=== PATIENT | male | born 1935 | race Caucasian/White ===

== ENCOUNTER → 2023-10-05 | Outpatient (CLI) | payer MEDICARE, SELFPAY ==
--- NOTE | 2023-10-05 12:30 | RAD_ITS ---
INDICATION: SOB EXAMINATION/TECHNIQUE: X-RAY - XR Chest 2 Views COMPARISON: No relevant prior comparison study available FINDINGS: LINES/DEVICES: None. LUNGS: Moderate left pleural effusion. Hypoventilatory changes in the right lung base. MEDIASTINUM AND CARDIOVASCULAR STRUCTURES: The cardiac silhouette is somewhat obscured. BONES AND SOFT TISSUES: Degenerative changes in the thoracic spine. RAD/Chest PA and Lateral IMPRESSION: Moderate left pleural effusion. Underlying infiltrate/collapse cannot be excluded. Electronically Signed: Narinder De La Cruz MD at 8:07 EDT ,
[2023-10-05 13:23] LABS: Absolute Lymphocyte Count 1.58 X10^3/uL (0.83-4.51); Absolute Neutrophil Count 5.8 X10^3/uL (2.0-7.7); Basophil# 0.05 X10^3/uL; Basophil% 0.6 % (0-1); Eosinophil# 0.19 X10^3/uL; Eosinophils% 2.3 % (0-5); Hematocrit 41.7 % (40-54); Hemoglobin 12.8 g/dL (13.0-16.5); Lymphocyte # 1.58 X10^3/ul (0.83-4.51); Lymphocyte % 18.8 % (19-41); Mean Corp Hgb Conc 30.7 g/dL (32-36); Mean Corpuscular Hgb 27.8 pg (27.0-32.0); Mean Corpuscular Volume 90.5 fL (80-94); Mean Platelet Vol. 10.3 fl (6.2-12.0); Monocyte# 0.71 X10^3/uL; Monocyte% 8.4 % (0-10); NRBC Flagged by Analyzer 0 % (0-5); Neutrophil # 5.83 X10^3/uL (2.7-7.7); Neutrophil % 69.3 % (47-70); Platelet Count 245 K/mm3 (150-450); RBC Distribution Width CV 15.1 % (11.6-14.6); RBC Distribution Width SD 49.8 fl (35.1-43.9); Red Blood Count 4.61 M/mm3 (4.6-6.2); White Blood Count 8.4 K/mm3 (4.4-11.0)
[2023-10-05 13:48] LABS: BNP,B-Type NATRIURETIC PEPTIDE 180.3 pg/mL (0-100)
[2023-10-05 14:02] LABS: ALB/GLOB Ratio 0.6 RATIO (0.9-2.4); AST(SGOT) 42 U/L (15-37); Alanine Aminotransfer ALT/SGPT 47 U/L (16-61); Albumin, Serum 2.7 g/dL (3.2-5.0); Alkaline Phosphatase 394 U/L (45-117); Anion Gap 5 (5-15); BUN 23 mg/dL (7-18); BUN/Creat Ratio 16.3 RATIO (10-20); Calcium,Total 8.8 mg/dL (8.5-10.1); Chloride 107 mmol/L (98-107); Creatinine, Serum 1.41 mg/dL (0.70-1.30); EST Glomerular Filtration Rate 50 mL/min (>60); Est Glom Filt Rate - Afr Amer 61 mL/min (>60); Globulin 4.8 g/dL (2.2-4.2); Glucose 220 mg/dL (74-106); Magnesium 2.1 mg/dL (1.6-2.6); Potassium 3.8 mmol/L (3.5-5.1); Protein, Total 7.5 g/dL (6.4-8.2); Sodium Level 139 mmol/L (136-145)
== END | disposition home or self-care (01) ==
LOC: RAD 12:16
PROVIDERS: PCP Internal Medicine; Referring Provider Nurse Practitioner Family; Visit Provider Nurse Practitioner Family
DX: R06.02 Shortness of breath (principal); I50.32 Chronic diastolic (congestive) heart failure; I11.0 Hypertensive heart disease with heart failure; I48.11 Longstanding persistent atrial fibrillation
CPT/HCPCS: 36415; 71046; 80053; 83735; 83880; 85025

== ENCOUNTER 2023-11-01 08:57 | Emergency (ER) | payer MEDICARE, SELFPAY ==
[2023-11-01 08:59] VITALS: BP 149/82; PULSE 75; RESP 18; TEMP 36.4; O2SAT 93
--- NOTE | 2023-11-01 09:10 | VDLE_ITS ---
Reason For Study: RLE Swelling RIGHT LEFT CFV is compressible, spontaneous, competent CFV is compressible, spontaneous, competent, and demonstrates pulsatile venous flow. and demonstrates pulsatile venous flow. FV is compressible, spontaneous, competent and demonstrates pulsatile venous flow. POP V is compressible, spontaneous, competent and demonstrates pulsatile venous flow. T/P Trunk is compressible. PTV is compressible. RT PerV is compressible. Procedure This is a venous duplex using B-mode, color flow and spectral Doppler. Exam performed portable in ED. The study was technically difficult. A preliminary report was called and/or faxed to Dr. Lorenzo. VL/Venous Duplex US, Unilateral Interpretation Summary Deep veins of the right lower extremity are patent and compressible segmentally . There is no evidence of right lower extremity deep vein thrombosis. The right great sapheno us vein appears patent and compressible segmentally. Ordering Physician: Tony Lorenzo Referring Physician: Alpesh Oconnell Performed By: Chaz Jones RVT
--- NOTE | 2023-11-01 09:10 | RAD_ITS ---
STUDY: X-RAY - RIGHT KNEE REASON FOR EXAM: Male, 88 years old. Pain, swelling TECHNIQUE: 2 view(s) of the knee. COMPARISON: None. FINDINGS: Normal visualized distal femur. Normal visualized proximal tibia and fibula. Normal proximal tibiofibular articulation. There is mild degenerative arthrosis of the medial femorotibial compartment. Normal lateral femorotibial compartment. 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 Moderate joint effusion. Diffuse soft tissue swelling. Vascular calcification. Calcification of the lateral collateral ligament in keeping with a Pedro Stieda disease. RAD/Knee 1 or 2 Views IMPRESSION: Degenerative arthrosis. Moderate-sized joint effusion with diffuse soft tissue swelling. Pedro Stieda disease. Electronically Signed: Matt Fragoso MD at 10:50 EDT ,
--- NOTE | 2023-11-01 09:12 | EDS_ITS ---
HPI History of Present Illness Chief Complaint: Lower Extremity Injury Narrative Narrative: 88-year-old male past medical history of atrial fibrillation, diabetes, chronic kidney disease, lower extremity lymphedema presents with right knee pain on the medial aspect for the last 2 days or longer. He denies any chest pain or shortness of breath. He relates history that he has had problems with his left knee. He was going to get a cortisone injection from orthopedics, but he developed an ulcer on his left lower extremity so they state that it cannot be performed. Over the last 2 days, he has noticed a knot on his right medial distal thigh. It is very painful for him to weight-bear or to touch. He denies any fevers or chills. No nausea or vomiting. He did develop an ulcer on his right lower leg/foot for which she sees podiatry. He took 2 Tylenol earlier today, but it did not help with his pain. He denies any recent falls or trauma. Additionally, he also takes Eliquis 2.5 mg twice a day for his atrial fibrillation. He has not missed a dose recently except for today before presenting to the emergency department this morning. [facility] Medical History Acute hepatitis Aphasia Asymmetric septal hypertrophy ATN (acute tubular necrosis) BPH (benign prostatic hyperplasia) Cholecystitis, acute Chronic diastolic (congestive) heart failure Colon cancer History of TIA (transient ischemic attack) (10/2020) Longstanding persistent atrial fibrillation New onset atrial fibrillation (12/24/18) Secondary pulmonary arterial hypertension Stroke-like symptoms Type 2 diabetes mellitus Home Medications apixaban 2.5 mg tablet 2.5 mg PO BID BLOOD THINNER 10/16/20 [History Last Taken 10/16/20] [id number]-[id number] 300 mcg-K 60 mcg-lycop 600 mcg-lutein 300 mcg tablet 1 tablet PO DAILY SUPPLEMENT 10/16/20 [History Last Taken 10/16/20] insulin NPH isoph U-100 human 100 unit/mL (3 mL) subcutaneous pen (Humulin N NPH U-100 Insulin KwikPen) 30 unit subcut BID 06/02/22 [History Last Taken Unknown] metoprolol tartrate 25 mg tablet See Rx Instructions .Route .COMPLEX #180 TABLETS 12/27/22 [Rx Last Taken Unknown] amlodipine 2.5 mg tablet 2.5 mg PO DAILY BP #90 tabs 07/31/23 [Rx Last Taken Unknown] glimepiride 4 mg tablet 4 mg PO BID diabetes 10/05/23 [History Last Taken Unknown] furosemide 40 mg tablet (Lasix) 60 mg (1.5 x 40 mg) PO BID #270 tabs 10/11/23 [Rx Last Taken Unknown] tramadol 50 mg tablet 50 mg PO Q6H PRN pain 3 days #12 tabs 11/01/23 [Rx Last Taken Unknown] Allergy/AdvReac Type Severity Reaction Status Date / Time dabigatran etexilate Allergy skin of Verified 11/01/23 08:58 [From Pradaxa] legs peeled/itching lisinopril Allergy Angioedema Verified 11/01/23 08:58 meloxicam [From Mobic] Allergy Unknown Verified 11/01/23 08:58 rivaroxaban [From Xarelto] AdvReac skin rash Verified 11/01/23 08:58 sulfamethoxazole AdvReac high sugars Verified 11/01/23 08:58 [From Bactrim] trimethoprim [From Bactrim] AdvReac high sugars Verified 11/01/23 08:58 Surgical History H/O local excision of skin lesion (10/26/21) History of cardioversion (2013) History of partial colectomy Social History household members: spouse Smoking Status: Former smoker how long ago did patient quit smokin years ago alcohol intake: never substance use type: does not use caffeine: Yes Type: coffee Number of servings: 3 ROS ROS ED ROS Narrative Constitutional: No fever, no chills. HEENT: No sore throat. No neck pain. No loss of vision. No rhinorrhea. Cardiovascular: No chest pain. No palpitations. No pedal edema. Respiratory: No cough, no shortness of breath. Abdominal: No abdominal pain. No nausea. No vomiting. Genitourinary: No dysuria. No hematuria. Musculoskeletal: Positive right distal thigh pain. Worse with palpation and weightbearing. Neurologic: No headaches. No dizziness. No lightheadedness. Skin: No rash. No change in color. Positive ulcers bilateral lower extremities. Psychiatric: No depression. No anxiety. EXAM Physical Exam Narrative Exam Narrative: Afebrile. Vital signs noted. HEENT: Normocephalic. Atraumatic. PERRL, EOMI. Neck soft and supple. No point tenderness or step off. Cardiovascular: Regular rate and rhythm. No murmurs, rubs, or gallops appreciated. Respiratory: No tachypnea. Lungs clear to auscultation bilaterally. Gastrointestinal: Abdomen soft, nontender, with normoactive bowel sounds. No rebound or guarding. Neurological: Awake. Alert. Nonfocal, nonlateralizing. Skin: No rash. Normal color. No pallor. Bilateral lower extremities in wraps. Musculoskeletal: Bilateral pedal edema, right greater than left. Full range of motion extremities. Mild tenderness palpation right medial thigh distally. No noted erythema. Flexion extension right knee intact. Const Vital Signs: 11/01/23 08:59 Temperature 97.6 F L Temperature Source Temporal Pulse Rate 75 Respiratory Rate 18 Blood Pressure 149/82 H Blood Pressure Mean 104 Pulse Ox 93 Oxygen Delivery Method Room Air MDM MDM MDM Narrative Medical decision making narrative: In the differential diagnosis would be DVT, however he is already on Eliquis albeit at half dose secondary to his age. He may have a hematoma versus fracture of the right distal femur/knee versus internal derangement. He is already taken Tylenol today. I will give him 1 dose of oxycodone 5 mg here in the emergency department and obtain an x-ray of the right knee along with ultrasound to rule out DVT. In discussion with the wood technologist, patient is negative for DVT of the right lower extremity. X-rays obtained of the right knee were interpreted by myself independently and I see no evidence of acute fracture. There is presence of a joint effusion. I reviewed the radiology report which confirms my independent interpretation. At this point in time, given that he does have u lceration on his right lower extremity and left lower extremity, I do not feel emergent arthrocentesis is indicated. I have low suspicion for septic joint. Patient will be given a prescription for tramadol, as given his age and the fact that he is on a blood thinner, I am reluctant to give him narcotic pain medication at this time. He will follow-up with his orthopedic surgeon, Dr. Carlos Childs. I feel he can be discharged to follow-up. Return instructions to the emergency department were reviewed. History & Record Review Discussion w/independent historian: Patient and Significant other Radiography Diagnostic Testing: Clinical Impression(s) from Imaging Studies Knee X-Ray 11/01/23 09:10 IMPRESSION: Degenerative arthrosis. Moderate-sized joint effusion with diffuse soft tissue swelling. Pedro Stieda disease. Electronically Signed: Matt Fragoso MD at 10:50 EDT , Discharge Plan Triage Chief Complaint: Lower Extremity Injury ED Provider: Tony Lorenzo Dx/Rx/DC Orders Clinical Impression: DM2 (diabetes mellitus, type 2), Knee pain, right, Effusion into joint Instructions: ED Knee Pain of Uncertain Cause, ED Knee Effusion Prescriptions: New tramadol 50 mg tablet 50 mg PO Q6H PRN (Reason: pain) 3 Days Qty: 12 0RF No Action Humulin N NPH Insulin KwikPen 100 unit/mL (3 mL) insulin pen 30 unit subcut BID furosemide [Lasix] 40 mg tablet 60 mg PO BID Qty: 270 3RF glimepiride 4 mg tablet 4 mg PO BID Hold Instructions: Resume on 04/09/21. Hold until follow-up with PCP with subsequent BMP recheck [id number] 1 EACH tablet 1 tablet PO DAILY apixaban 2.5 MG tablet 2.5 mg PO BID metoprolol tartrate 25 mg tablet See Rx Instructions .ROUTE .COMPLEX Qty: 180 3RF Dose Instruction: TAKE ONE TABLET BY MOUTH TWO TIMES A DAY Rx Instructions: TAKE ONE TABLET BY MOUTH TWO TIMES A DAY amlodipine 2.5 mg tablet 2.5 mg PO DAILY Qty: 90 3RF Primary Care Provider: Alpesh Oconnell Referrals: Carlos Fleming DO [Med Staff - Active Staff] - As soon as possible Alpesh Oconnell MD [Primary Care Provider] - Disposition Disposition: Home, Self Care
[2023-11-01] MEDS: oxyCODONE 5 MG Tablet PO (09:46)
[2023-11-01 12:00] VITALS: BP 142/76; PULSE 78; RESP 16; TEMP 36.4; O2SAT 99
== END 2023-11-01 12:13 | disposition home or self-care (01) ==
PROVIDERS: Emergency Provider Emergency Medicine; PCP Internal Medicine; Visit Provider Emergency Medicine
DX: E11.22 Type 2 diabetes mellitus with diabetic chronic kidney disease (principal); I48.91 Unspecified atrial fibrillation; M25.561 Pain in right knee; M25.461 Effusion, right knee; N18.9 Chronic kidney disease, unspecified; Z86.73 Personal history of transient ischemic attack (TIA), and cerebral infarction without residual deficits; Z87.891 Personal history of nicotine dependence; Z79.01 Long term (current) use of anticoagulants
CPT/HCPCS: 73560; 93971; 99282

== ENCOUNTER → 2023-11-29 | Outpatient (CLI) | payer MEDICARE, SELFPAY ==
--- NOTE | 2023-11-29 14:20 | BD_ITS ---
STUDY: DUAL ENERGY X-RAY ABSORPTIOMETRY / DXA REASON FOR EXAM: Male, 88 years old. Pain, possible bone cyst on right knee TECHNIQUE: Bone Mineral Density (BMD) measurements of lumbar spine and bilateral hips were obtained. COMPARISON: None. FINDINGS: Lumbar Spine (L1-L4): g/cm2 (1.707) / T-score (5.7) / Z-score (7.0) Findings are suggestive of normal bone density with a low fracture risk. Left Femur Total: g/cm2 (1.479) / T-score (3.0) / Z-score (4.2) Left Femoral Neck: g/cm2 (1.344) / T-score (3.0) / Z-score (4.8) Right Femur Total: g/cm2 (1.281) / T-score (1.6) / Z-score (2.9) Right Femoral Neck: g/cm2 (0.966) / T-score (0.3) / Z-score (2.0) BD/Dexa Bone Density Study IMPRESSION: The patient is considered normal as outlined below according to World [employer] Organization (WHO) criteria with a low fracture risk. Reference Information: The T-score is the number of standard deviations above or below the standard which is normal for young adults at their peak bone mineral density. The World Health Organization (WHO) interprets the T-scores as follows: Above -1 Normal bone density Between -1 and -2.5 Osteopenia Equal to / or below -2.5 Osteoporosis As a practical clinical guideline, osteopenia may be graded as follows: Mild -1 through -1.5 Moderate -1.6 through -2.0 Severe -2.1 through -2.4 The Z-score is the number of standard deviations above or below age-matched controls. A Z-score of less than -1.5 would be considered abnormal. References: 1. NIH Osteoporosis and Related Bone Diseases www osteo.org 2. International Society for Clinical Densitometry www iscd.org 3. National Osteoporosis Foundation www nof.org Electronically Signed: Matt Fragoso MD at 11:21 EDT ,
== END | disposition home or self-care (01) ==
LOC: OPBD 14:04
PROVIDERS: PCP Internal Medicine; Referring Provider Orthopaedic Surgery; Visit Provider Orthopaedic Surgery
DX: M81.0 Age-related osteoporosis without current pathological fracture (principal); M25.561 Pain in right knee
CPT/HCPCS: 77080

== ENCOUNTER → 2023-12-08 | Outpatient (CLI) | payer MEDICARE, SELFPAY ==
--- NOTE | 2023-12-08 08:32 | NM_ITS ---
CLINICAL: 88-year-old male with history of right proximal tibial bone cyst formation and complaint of right knee pain. LIMITED 99m Tc MDP THREE PHASE BONE SCINTIGRAPHY COMPARISON: Plain film radiograph report right knee 11/01/2023 FINDINGS: Following the intravenous administration of 27.7 mCi of 99m Tc MDP, three-phase bone acquisitions of the knee articulations reveal: 1. The flow and immediate static blood pool acquisitions demonstrate relatively normal and symmetric arterial phase distribution of the radiotracer to the bilateral knee articulations. Venous hyperemia is apparent in the medial and lateral femoral-tibial compartments of both knee articulations. 2. Delayed images depict facilitated uptake noted in the patellofemoral, medial and lateral femoral and tibial compartments of the bilateral knees. 3. The remaining limited skeletal structures are scintigraphically unremarkable. Meticulous attention paid to the right lateral proximal tibial metaphysis demonstrate no definitive scintigraphic abnormalities. NM/Bone Scan Three Phase IMPRESSION: 1. The increase in tracer uptake noted in the bilateral knee articulations is most consistent with degenerative arthropathy-synovial inflammation. 2. With regard given to the right proximal lateral tibial metaphysis, there are no scintigraphic abnormalities. Electronically Signed: Harvinder Joseph DO at 8:39 EDT ,
== END | disposition home or self-care (01) ==
PROVIDERS: PCP Internal Medicine; Referring Provider Orthopaedic Surgery; Visit Provider Orthopaedic Surgery
DX: M85.661 Other cyst of bone, right lower leg (principal)
CPT/HCPCS: 78315; A9503

== ENCOUNTER 2023-12-14 10:00 | Outpatient (RCR) | payer MEDICARE, SELFPAY ==
[2023-12-07 08:35] VITALS: BP 121/60; PULSE 70; RESP 18; TEMP 36.4; BMI 37.9
--- NOTE | 2023-12-07 10:16 | HP.PCM_ITS ---
History of Present Illness Date of Service: 12/07/23 Chief Complaint: Right medial heel History of Wound: Patient is a 88-year-old male with PMHx of DM type II with peripheral polyneuropathy, HTN, Hx of TIA, bone cyst of the right tibia, CHF, stage IIIa chronic kidney disease, A-fib, bilateral lower extremity edema, and chronic venous stasis with dermatitis who presents to the wound care center for evaluation of a right medial heel ulceration by bindery machine operator Dr. Alpesh Oconnell MD. Ulceration has been present since March 2023 in which he had been following with Alli BustamantePMilena who did order LEAS on 07/28/2023 with mild arterial occlusive disease on the right and moderate arterial occlusive disease on the left. Patient had declined vascular surgery follow-up which was advised at that time. Patient stated he had tried compression stockings in the past but attempted removing them one evening and they rolled down on him causing him pain to which he took scissors and like a shear remove them. States he has not worn them since. Patient's states they have been applying the collagen based product to the wound bed and dressing with dry dressings daily. They had also used Santyl on the eschar site at the heel. Patient denies pain about the wound site. Denies N/V/S/chills, denies constitutional symptoms. [facility] Medical History Acute hepatitis Aphasia Asymmetric septal hypertrophy ATN (acute tubular necrosis) BPH (benign prostatic hyperplasia) Cholecystitis, acute Chronic diastolic (congestive) heart failure Colon cancer History of TIA (transient ischemic attack) (10/2020) Longstanding persistent atrial fibrillation New onset atrial fibrillation (12/24/18) Secondary pulmonary arterial hypertension Stroke-like symptoms Type 2 diabetes mellitus Home Medications ?Medication ?Instructions ?Recorded ?Last Taken ?Type apixaban 2.5 mg tablet 2.5 mg PO BID BLOOD THINNER 10/16/20 10/16/20 History [id number] 300 mcg-K 60 1 tablet PO DAILY SUPPLEMENT 10/16/20 10/16/20 History mcg-lycop 600 mcg-lutein 300 mcg tablet insulin NPH isoph U-100 human 100 15 unit subcut BID 06/02/22 Unknown History unit/mL (3 mL) subcutaneous pen (Humulin N NPH U-100 Insulin Urszula) metoprolol tartrate 25 mg tablet See Rx Instructions .Route 12/27/22 Unknown Rx .COMPLEX #180 TABLETS amlodipine 2.5 mg tablet 2.5 mg PO DAILY BP #90 tabs 07/31/23 Unknown Rx glimepiride 4 mg tablet 4 mg PO BID diabetes 10/05/23 Unknown History furosemide 40 mg tablet (Lasix) 40 mg PO DAILY #90 tabs 11/10/23 Unknown Rx spironolactone 25 mg tablet 25 mg PO DAILY #30 tabs 11/10/23 Unknown Rx Allergy/AdvReac Type Severity Reaction Status Date / Time dabigatran etexilate (From Allergy skin of Verified 11/10/23 13:14 Pradaxa) legs peeled/itching lisinopril Allergy Angioedema Verified 11/10/23 13:14 meloxicam (From Mobic) Allergy Unknown Verified 11/10/23 13:14 rivaroxaban (From Xarelto) AdvReac skin rash Verified 11/10/23 13:14 sulfamethoxazole (From AdvReac high sugars Verified 11/10/23 13:14 Bactrim) trimethoprim (From Bactrim) AdvReac high sugars Verified 11/10/23 13:14 Surgical History H/O local excision of skin lesion (10/26/21) History of cardioversion (2013) History of partial colectomy Social History household members: spouse Smoking Status: Former smoker how long ago did patient quit smokin years ago alcohol intake: never substance use type: does not use caffeine: Yes Type: coffee Number of servings: 3 ROS Constitutional Constitutional: Denies anorexia, change in weight, chills or fever(s) Eyes Eyes: Denies blurry vision, change in vision or dry eyes ENT HEENT: Denies dysphagia, nasal congestion, nasal discharge or sore throat Cardiovascular Cardiovascular: Denies chest pain, claudication or palpitations Respiratory/Chest Respiratory/Chest: Denies cough, shortness of breath at rest or wheezing Gastrointestinal Gastrointestinal: Denies abdominal pain, constipation, diarrhea, nausea or vomiting Genitourinary Genitourinary: Denies dysuria, hematuria or urinary urgency Musculoskeletal Musculoskeletal: Denies joint pain, joint stiffness or joint swelling Integumentary Integumentary: Denies lesions, pruritus or rash Neurologic Neurologic: Denies dizziness, numbness or seizures Psychiatric Psychiatric: Denies anxiety Endocrine Endocrinology: Denies cold intolerance, heat intolerance or polydipsia Hematologic/Lymphatic Hematologic/Lymphatic: Reports easy bleeding and easy bruising Vital Signs Vital Signs Vital Signs: 12/07/23 08:35 Temperature 97.6 F L Temperature Source Temporal Pulse Rate 70 Respiratory Rate 18 Blood Pressure 121/60 H Blood Pressure Mean 80 Blood Pressure Source Monitor Blood Pressure Position Semi-Fowlers Blood Pressure Location Left Arm Oxygen Delivery Method Room Air Weight Weight: 106.594 kg Body Mass Index (BMI) 37.9 Physical Exam Const alert, oriented x3 and no apparent distress General Appearance: cooperative HEENT normocephalic Eyes General Eye: normal appearance of both eyes Neck General: normal visual inspection Lymph Lymphatic: no lymphadenopathy noted and no lymphedema noted Resp normal respiratory effort Cardio regular rate and regular rhythm Extremity no joint enlargement and no calf tenderness Extremity Narrative: Vascular: DP and PT pulses weakly palpable bilateral. CFT 5 seconds to the digits bilateral. Normal temperature gradient bilateral. Hair growth is absent to digits bilateral. Neurologic: Light sensation is diminished to the foot bilateral. Gross sensation is intact bilateral. Protective sensation is diminished to the foot bilateral consistent with diabetic peripheral polyneuropathy. Musculoskeletal: Muscle strength 5 of 5 age-appropriate. There is decreased range of motion of the ankle joint dorsiflexion bilateral with the knee extended without pain or crepitus bilateral. Decreased range of motion of the first metatarsophalangeal joint dorsiflexion without pain or crepitus bilateral. No pain to palpation to bones of the foot or ankle. No pain to palpation about the ulcerative site at the medial calcaneal wall. No pain to palpation to the pretibial shaft or about sites of hemosiderin deposition bilateral lower extremity. Negative Fisher test, negative Alaina test bilateral. Dermatologic: There is mild xerotic texture to the lower extremity bilateral especially over the pretibial regions along with significant circumferential hemosiderin deposition and chronic venous stasis dermatitis. There is also multiple varicosities noted to the lower extremity and medial ankle with +4 pitting edema to the dorsal foot and medial ankle. Rubor is noted to the digits and plantar aspect of the foot with trophic changes to the skin noted consistent with microvascular disease/mild arterial occlusive disease. There is a stable eschar noted to the medial calcaneal wall well below the neurovascular bundle. No signs of infection. There is surrounding hyperkeratosis/crusting of the skin which is easily removed. Post removal of eschar demonstrates healthy s uperficial ulceration with no tunneling about the wound margins. Skin no rashes or lesions noted and no jaundice General Skin Exam: venous stasis and dermatitis Neuro moves all extremities Debridement Note Debridement Note Wound debrided: Medial right heel Laterality: Right Wound Grade/Stage: Stout stage I Type of Debridement: Excisional debridement Anesthesia Used: 5% Lidocaine Gel Depth: Down to and including healthy tissue and in the subcutaneous layer Percentage of wound debrided: 100 Instrument Used: 5mm curette Tissue Removed: Fibrous, devitalized subcutaneous, biofilm, slough Severity: Fat Layer Exposed Amount of bleeding with debridement: Mild Bleeding Controlled with: Compression and gauze Patient tolerated procedure: Patient tolerated procedure well Post-Debridement Measurements and Additional Note: Post-Debridement Measurements/Treatment - Nurse 1 - General Ulcer Assessment Start: 12/07/23 08:34 Freq: Status: Active Protocol: [email or web address] Activity Type Activity Date Activity User E-sign Co-sign Detail Recorded Client Recorded Date Recorded By Document 12/07/23 08:35 KW wound center 12/07/23 08:48 KW 12/07/23 08:35 - Today's Visit Information Type of service Initial Visit Arrival Mode Wheelchair Transfer Assistance Manual Accompanied by friend/ superintendent colliery Patient Identification Verified (Name & Yes ) Finger Stick Blood Sugar(mg/dl) (if 168 indicated): Blood Sugar Stated by Patient Height and Weight Height 5 ft 6 in Weight 106.594 kg Weight in Pounds 235.0 lbs Body Mass Index (BMI) 37.9 BMI Classification Obese BSA - Dale 2.14 Vital Signs Temperature (97.8 F-99.1 F) 97.6 F L Temperature Source Temporal Pulse Rate (60-100) 70 Pulse Location Monitor Respiratory Rate (12-18) 18 Respiratory rate source Observation Oxygen Delivery Method Room Air Blood Pressure (90/60-120/80) 121/60 H Blood Pressure Mean 80 Source Monitor Position Semi-Fowlers Blood Pressure Location Left Arm History Since Last Visit- (Skip if this is Patient's initial visit) Left Footwear Diabetic Shoe Right Footwear Diabetic Shoe Pain Scale: 0-10 Numeric Is Patient Pain Free? Yes Lower Extremity Assessment/ Foot Assessment/ Toe Nail Assessment Right -Posterior Tibial Palpable No -Dorsalis Pedis Palpable No -Hair Growth on Legs No -Hair Growth on Toes No -Temperature of Extremity Cool -Capillary Refill Less than 3 Seconds -Thick Yes -Discolored Yes -Deformed Yes -Improper Length & Hygeine No Communication Assessment Preferred language [place] Leak Operator Paraffin Plant Required No Able to Read Yes Able to Write Yes Right Hearing Abillity Normal Left Hearing Abillity Normal Visual Assistive Devices Glasses Teaching Assessment Preferences Verbal,Written, Demonstration Barriers to Learning None Readiness To Learn Excellent Willingness to Engage in Self Management High Activies Readiness to Engage in Self Management High Activities Anxiety Level Calm Cooperation Cooperative Perception Coherent Interest in Health Problem Asks Questions Education Importance Acknowledges Need Does Patient Smoke tobacco or other Yes substances Smoking Status Former smoker Is Patient Diabetic Yes Functional Assessment Recent Decline in Ability to Perform Ambulation, Bathing,Lower Body Dressing, Transferring Culture/Hoahaoism/Development Administrator Cultural/Hoahaoism Needs that may affect No Treatment Plan Would you allow our hospital ornament stitcher to No meet you for the purpose of spiritual/ emotional support? Development Administrator to contact place of denominational No WC - Nurse 1 - General Ulcer Measurement Start: 12/07/23 08:34 Freq: Status: Active Protocol: Activity Type Activity Date Activity User E-sign Co-sign Detail Recorded Client Recorded Date Recorded By Document 12/07/23 08:35 KW wound center 12/07/23 08:48 KW 12/07/23 08:35 Wound Center Nurse 1 #1 rt heel -Current Size (cm) - Length 0.5 -Current Size (cm) - Width 0.7 -Current Size (cm) - Depth 0.1 -Total Square Cm 0.35 -Date of Last Picture (Recall this 12/07/23 field) -Photo Taken Yes -Exudate Amt Small -Exudate Type Serosanguineous -Wound Margin Distinct, Outline Attached -Granulation Amt Large (67-100%) -Granulation Quality Oriental -Texture (Antoinette-wound Skin Appearance) Callus -Moisture (Antoinette-wound Skin Appearance) Assessed -Color (Antoinette-wound Skin Appearance) Assessed, Hemosiderin Staining -Temperature (Antoinette-wound Skin No Abnormality Appearance) (Pt Warm) -Tenderness on Palpation (Antoinette-wound No Skin Appearance) -Ulcer Cleansing Rinsed/ Irrigated with Saline -Foul Odor after Cleansing No -Anesthetic Used 5% Lidocaine Gel Right Calf (cm) 45 Right Ankle (cm) 30.5 Left Calf (cm) 42.5 Left Ankle (cm) 33 WC - Nurse 2 - General Ulcer CM Notes Start: 12/07/23 08:34 Freq: Status: Active Protocol: Activity Type Activity Date Activity User E-sign Co-sign Detail Recorded Client Recorded Date Recorded By Document 12/07/23 09:08 [facility] [id number] 12/07/23 09:16 [facility] 12/07/23 09:08 Wound Center Nurse 2 #1 rt heel -Time 09:09 -Correct Patient Yes -Correct Side, Site, Position Yes -Correct Procedure Yes -Procedure Performed Yes -Type of Procedure Debridement -Clinical Debridement Subcutaneous -Tissue Removed Subcutaneous -Post Debridement (cm) - Length 1 -Post Debridement (cm) - Width 0.5 -Post Debridement (cm) - Depth 0.1 -Total Square (Post) (cm) 0.5 -Area of Debridement (cm) - Length 1 -Area of Debridement (cm) - Width 0.5 -Total Square (Area) (cm) 0.5 -Tunneling No -Undermining/Tunneling No -Circular Undermining No -Wound/Ulcer Outcome Not Healed -Ulcer Cleansing Rinsed/ Irrigated with Saline -Foul Odor after Cleansing No -Bioengineered Tissue No -Bleeding Controlled with Pressure -Treatment Response Procedure Tolerated Well -Debridement - Subq, 1st 20sq cm Yes Pain Scale: 0-10 Numeric Is Patient Pain Free? Yes - Nurse 3 - General Ulcer D/C NN Start: 12/07/23 08:34 Freq: Status: Active Protocol: Activity Type Activity Date Activity User E-sign Co-sign Detail Recorded Client Recorded Date Recorded By Document 12/07/23 09:43 RB wound cemter 12/07/23 09:44 RB 12/07/23 09:43 Wound Care Center Nurse 3 #1 rt heel -Primary Dressing Applied Mepilex Border -Mepilex Border 1 Right -Tubular Bandage Single Layer -Size of Tubigrip Used Size E -Size E ($) 1 Left -Tubular Bandage Single Layer -Size of Tubigrip Used Size E -Size E ($) 1 Treatment Response Procedure Tolerated Well Pain Scale: 0-10 Numeric Is Patient Pain Free? Yes WC - Visit Discharge Discharge Condition Stable Ambulatory Status Wheelchair Transportation Private Auto Medication Reconcilliation completed & No provided to patient/care provider Clinical Summary of Care Provided Yes Assessment/Plan Assessment/Plan (1) Non-pressure chronic ulcer of other part of right foot with fat layer exposed: CODE(S): L97.512 - Non-pressure chronic ulcer of other part of right foot with fat layer exposed (2) Venous stasis dermatitis: CODE(S): I87.2 - Venous insufficiency (chronic) (peripheral) (3) Diabetes mellitus with diabetic polyneuropathy: CODE(S): E11.42 - Type 2 diabetes mellitus with diabetic polyneuropathy (4) Peripheral vascular disease, unspecified: CODE(S): I73.9 - Peripheral vascular disease, unspecified (5) Chronic diastolic (congestive) heart failure: CODE(S): I50.32 - Chronic diastolic (congestive) heart failure (6) Bilateral lower extremity edema: CODE(S): R60.0 - Localized edema (7) Type 2 diabetes mellitus with foot ulcer: CODE(S): E11.621 - Type 2 diabetes mellitus with foot ulcer; L97.509 - Non-pressure chronic ulcer of other part of unspecified foot with unspecified severity (8) Essential (primary) hypertension: CODE(S): I10 - Essential (primary) hypertension PLAN: Plan Patient seen and evaluated Ulceration to the medial aspect of the calcaneal wall of the right foot was debrided as noted in the clinical panel above. Ulceration measures 1.0cm x 0.5 cm x 0.1 cm post removal of the eschar. Ulceration demonstrates healthy granular base. No signs of infection. Morena was applied to the wound bed moistened with saline and dressed with dry sterile dressing and [place] SAP dressing. Patient and were instructed to change dressing daily. Tubigrip compression was also applied to bilateral lower extremities. Discussed need for continued compression given patient's significant edema today. Recommended starting with Tubigrip compression stocking with eventual transition to a mild compression stocking for every day use. Discussed diet changes today including significant reduction in sodium intake to aid in edema control. Discussed elevation of lower extremities while at rest to aid in continued edema control. Discussed adequate protein intake to continue to aid in wound healing. Elvis supplementation was also recommended. Will seek approval for advanced wound care product, EpiFix for application at next visit. Discussed continued offloading of the site to ensure that shoe gear does not rub on this portion and that the patient does not did get his heel into the bed when transferring or turning over. Discussed signs and symptoms of infection today. Discussed that if he gets increasing redness about the wound site that moves up the leg, purulent drainage emerging from wound site, increasing foul odor from the wound site, or if he experiences fever greater than 101 degree accompanied by nausea, vomiting, chills that these are signs of a progressing infection and he should report to the ED to receive IV antibiotics and for further evaluation. He and his are understanding of this today. The following work up and care recommendations were made: Dressing: Morena, dry sterile dressing, [place] SAP dressing. Tubigrip compression to bilateral lower extremity, he is to change dressings daily. Wash: Soap and water Tissue growth optimization: Morena/SAP dressing Offload: Continue to ensure no pressure to the medial aspect of the heel. Also recommended waffle foam offloading boot Vascular: DP and PT pulses weakly palpable with delayed capillary fill time. It has been recommended per his PCP, Dramatic Critic, and Distribution A Class Lineman based on LEAS from July 2023 that he undergo following with vascular physician however patient does continue to decline. Edema: +4 pitting edema bilateral lower extremity. Discussed continued elevation of lower extremities, reduction of sodium intake/diet control/lifestyle modification. Discussed Tubigrip compression to be worn to aid in edema control. Infection: No signs of infection Pain: May take [id number] Tylenol Extra Strength for any discomfort. Host factors: DM type II with peripheral polyneuropathy, peripheral vascular disease, lower extremity swelling, chronic venous stasis, CHF, advanced age. I answered all the patient's questions. To return to the wound healing center in 1 week or call sooner if the patient has any questions or concerns.
[2023-12-14 10:09] VITALS: BP 113/60; PULSE 63; RESP 22; TEMP 36.2; BMI 37.9
--- NOTE | 2023-12-14 12:48 | PCM.WC.PN ---
History of Present Illness Date of Service: 12/14/23 Chief Complaint: Right medial heel History of Wound: Patient is a 88-year-old male with PMHx of DM type II with peripheral polyneuropathy, HTN, Hx of TIA, bone cyst of the right tibia, CHF, stage IIIa chronic kidney disease, A-fib, bilateral lower extremity edema, and chronic venous stasis with dermatitis who presents to the wound care center for evaluation of a right medial heel ulceration by clam grader Dr. Alpesh Oconnell MD. Ulceration has been present since March 2023 in which he had been following with Dr. Felipe D.P.M. 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 Patient had declined vascular surgery follow-up which was advised at that time. Patient stated he had tried compression stockings in the past but attempted removing them one evening and they rolled down on him causing him pain to which he took scissors and like a shear remove them. States he has not worn them since. Patient's states they have been applying the collagen based product to the wound bed and dressing with dry dressings daily. They had also used Santyl on the eschar site at the heel. Patient denies pain about the wound site. Denies N/V/S/chills, denies constitutional symptoms. Subjective Subjective This is an 88-year-old male who presents to the wound care center for continued follow-up of right medial heel ulceration. He is accompanied by his today. She has been assisting him with dressing changes daily to the heel consisting of collagen based product. She notes that the ulceration is getting smaller in size. He states he continues to wear the Tubigrip compression and is able to don the stockings himself. He denies constitutional symptoms. Denies further complaints. Objective Data Objective Data Vital Signs: Vital Signs Temp Pulse Resp BP O2 Del Method 97.1 F L 63 22 H 113/60 Room Air 12/14/23 10:12/14/23 10:12/14/23 10:12/14/23 10:12/07/23 08:35 Oxygen Delivery Method Room Air Weight: 106.594 kg Body Mass Index (BMI) 37.9 Physical Exam Const alert, oriented x3 and no apparent distress General Appearance: cooperative HEENT normocephalic Eyes General Eye: normal appearance of both eyes Neck General: normal visual inspection Lymph Lymphatic: no lymphadenopathy noted and no lymphedema noted Resp normal respiratory effort Cardio regular rate and regular rhythm Extremity no joint enlargement and no calf tenderness Extremity Narrative: Vascular: DP and PT pulses weakly palpable bilateral. CFT 5 seconds to the digits bilateral. Normal temperature gradient bilateral. Hair growth is absent to digits bilateral. Neurologic: Light sensation is diminished to the foot bilateral. Gross sensation is intact bilateral. Protective sensation is diminished to the foot bilateral consistent with diabetic peripheral polyneuropathy. Musculoskeletal: Muscle strength 5 of 5 age-appropriate. There is decreased range of motion of the ankle joint dorsiflexion bilateral with the knee extended without pain or crepitus bilateral. Decreased range of motion of the first metatarsophalangeal joint dorsiflexion without pain or crepitus bilateral. No pain to palpation to bones of the foot or ankle. No pain to palpation about the ulcerative site at the medial calcaneal wall. No pain to palpation to the pretibial shaft or about sites of hemosiderin deposition bilateral lower extremity. Negative Fisher test, negative Alaina test bilateral. Dermatologic: There is mild xerotic texture to the lower extremity bilateral especially over the pretibial regions along with significant circumferential hemosiderin deposition and chronic venous stasis dermatitis. There is also multiple varicosities noted to the lower extremity and medial ankle with +4 pitting edema to the dorsal foot and medial ankle. Rubor is noted to the digits and plantar aspect of the foot with trophic changes to the skin noted consistent with microvascular disease/mild arterial occlusive disease. There is a stable eschar noted to the medial calcaneal wall well below the neurovascular bundle. No signs of infection. There is surrounding hyperkeratosis/crusting of the skin which is easily removed. Post removal of eschar demonstrates healthy superficial ulceration with no tunneling about the wound margins. Skin no rashes or lesions noted and no jaundice General Skin Exam: venous stasis and dermatitis Neuro moves all extremities Debridement Note Debridement Note Wound debrided: Right medial heel Laterality: Right Wound Grade/Stage: Stout stage I Type of Debridement: Excisional debridement Anesthesia Used: 5% Lidocaine Gel Depth: Down to and including healthy tissue and in the subcutaneous layer Percentage of wound debrided: 100 Instrument Used: 3mm curette Tissue Removed: Fibrous, devitalized subcutaneous, biofilm, slough Severity: Fat Layer Exposed Amount of bleeding with debridement: Mild Bleeding Controlled with: Compression and gauze Patient tolerated procedure: Patient tolerated procedure well Post-Debridement Measurements and Additional Note: Post-Debridement Measurements/Treatment - Nurse 1 - General Ulcer Assessment Start: 12/07/23 08:34 Freq: Status: Active Protocol: [email or web address] Activity Type Activity Date Activity User E-sign Co-sign Detail Recorded Client Recorded Date Recorded By Document 12/07/23 08:35 K[facility] wound center 12/07/23 08:48 KW Document 12/14/23 10:09 DL [id number] 12/14/23 10:17 DL 12/07/23 12/14/23 08:35 10:09 - Today's Visit Information Type of service Initial Visit Follow-up Visit (Physician/LINE PATROLLER ) Arrival Mode Wheelchair Wheelchair Transfer Assistance Manual Manual Transfer Assist (Other) x2 Accompanied by friend/ instrumentation engineering technician Patient Identification Verified (Name & Yes Yes ) Patient Requires Transmission-Based No Precautions Finger Stick Blood Sugar(mg/dl) (if 168 144 indicated): Blood Sugar Stated by Stated by Patient Patient Height and Weight Height 5 ft 6 in Weight 106.594 kg Weight in Pounds 235.0 lbs Body Mass Index (BMI) 37.9 37.9 BMI Classification Obese Obese BSA - Dale 2.14 Vital Signs Temperature (97.8 F-99.1 F) 97.6 F L 97.1 F L Temperature Source Temporal Temporal Pulse Rate (60-100) 70 63 Pulse Location Monitor Monitor Respiratory Rate (12-18) 18 22 H Respiratory rate source Observation Observation Oxygen Delivery Method Room Air Blood Pressure (90/60-120/80) 121/60 H 113/60 Blood Pressure Mean (mm Hg) 80 77 Source Monitor Monitor Position Semi-Fowlers Blood Pressure Location Left Arm History Since Last Visit- (Skip if this is Patient's initial visit) Have you changed medications since your No last visit? Any new allergies or adverse reactions No Had a fall/change in ADL's that may No increase risk of falls Signs or symptoms of abuse and/or No neglect since last visit Have you been in the hospital since your No last visit? Has dressing in place as prescribed Yes Has compression in place as prescribed Yes Has offloadiing in place as prescribed Yes Experienced any changes in pain level or No management Left Footwear Diabetic Shoe Diabetic Shoe Right Footwear Diabetic Shoe Diabetic Shoe Pain Scale: 0-10 Numeric Is Patient Pain Free? Yes Yes Lower Extremity Assessment/ Foot Assessment/ Toe Nail Assessment Right -Posterior Tibial Palpable No -Dorsalis Pedis Palpable No -Hair Growth on Legs No -Hair Growth on Toes No -Temperature of Extremity Cool -Capillary Refill Less than 3 Seconds -Thick Yes -Discolored Yes -Deformed Yes -Improper Length & Hygeine No Communication Assessment Preferred language Syriac Sales Representative Jewelry Required No Able to Read Yes Able to Write Yes Right Hearing Abillity Normal Left Hearing Abillity Normal Visual Assistive Devices Glasses Teaching Assessment Preferences Verbal,Written, Demonstration Barriers to Learning None Readiness To Learn Excellent Willingness to Engage in Self Management High Activies Readiness to Engage in Self Management High Activities Anxiety Level Calm Cooperation Cooperative Perception Coherent Interest in Health Problem Asks Questions Education Importance Acknowledges Need Does Patient Smoke tobacco or other Yes substances Smoking Status Former smoker Is Patient Diabetic Yes Functional Assessment Recent Decline in Ability to Perform Ambulation, Bathing,Lower Body Dressing, Transferring Culture/Sikhism/Community Specialist Cultural/Sikhism Needs that may affect No Treatment Plan Would you allow our hospital nutrition teacher to No meet you for the purpose of spiritual/ emotional support? Community Specialist to contact place of restoration No WC - Nurse 1 - General Ulcer Measurement Start: 12/07/23 08:34 Freq: Status: Active Protocol: Activity Type Activity Date Activity User E-sign Co-sign Detail Recorded Client Recorded Date Recorded By Document 12/07/23 08:35 KW wound center 12/07/23 08:48 KW Document 12/14/23 10:09 DL [email or web address] 12/14/23 10:17 DL 12/07/23 12/14/23 08:35 10:09 Wound Center Nurse 1 #1 rt heel -Current Size (cm) - Length 0.5 0.7 -Current Size (cm) - Width 0.7 0.4 -Current Size (cm) - Depth 0.1 0.1 -Total Square Cm 0.35 0.28 -Date of Last Picture (Recall this 12/07/23 field) -Photo Taken Yes -Exudate Amt Small Small -Exudate Type Serosanguineous Serosanguineous -Wound Margin Distinct, Distinct, Outline Outline Attached Attached -Granulation Amt Large (67-100%) Large (67-100%) -Granulation Quality Ramona Ramona -Necrosis Amt None Present (0 %) -Structure Exposed N/A -Texture (Antoinette-wound Skin Appearance) Callus Callus,Scarring -Moisture (Antoinette-wound Skin Appearance) Assessed No Abnormality -Color (Antoinette-wound Skin Appearance) Assessed, Hemosiderin Hemosiderin Staining Staining -Temperature (Antoinette-wound Skin No Abnormality No Abnormality Appearance) (Pt Warm) (Pt Warm) -Tenderness on Palpation (Antoinette-wound No No Skin Appearance) -Ulcer Cleansing Rinsed/ Rinsed/ Irrigated with Irrigated with Saline Saline -Foul Odor after Cleansing No No -Anesthetic Used 5% Lidocaine 5% Lidocaine Gel Gel Right Calf (cm) 45 42 Right Ankle (cm) 30.5 28.4 Left Calf (cm) 42.5 41.2 Left Ankle (cm) 33 29.4 WC - Nurse 2 - General Ulcer CM Notes Start: 12/07/23 08:34 Freq: Status: Active Protocol: Activity Type Activity Date Activity User E-sign Co-sign Detail Recorded Client Recorded Date Recorded By Document 12/07/23 09:08 [facility] [id number] 12/07/23 09:16 [facility] Document 12/14/23 10:42 [facility] 12/14/23 10:50 [facility] 12/07/23 12/14/23 09:08 10:42 Wound Center Nurse 2 #1 rt heel -Time 09:09 10:45 -Correct Patient Yes Yes -Correct Side, Site, Position Yes Yes -Correct Procedure Yes Yes -Procedure Performed Yes Yes -Type of Procedure Debridement Debridement -Clinical Debridement Subcutaneous Subcutaneous -Tissue Removed Subcutaneous Subcutaneous -Post Debridement (cm) - Length 1 0.5 -Post Debridement (cm) - Width 0.5 0.4 -Post Debridement (cm) - Depth 0.1 0.1 -Total Square (Post) (cm) 0.5 0.20 -Area of Debridement (cm) - Length 1 0.5 -Area of Debridement (cm) - Width 0.5 0.4 -Total Square (Area) (cm) 0.5 0.20 -Tunneling No No -Undermining/Tunneling No No -Circular Undermining No No -Wound/Ulcer Outcome Not Healed Not Healed -Ulcer Cleansing Rinsed/ Rinsed/ Irrigated with Irrigated with Saline Saline -Foul Odor after Cleansing No No -Bioengineered Tissue No No -Bleeding Controlled with Pressure Pressure -Treatment Response Procedure Procedure Tolerated Well Tolerated Well -Offloading No -Debridement - Subq, 1st 20sq cm Yes Yes Pain Scale: 0-10 Numeric Is Patient Pain Free? Yes Yes - Nurse 3 - General Ulcer D/C NN Start: 12/07/23 08:34 Freq: Status: Active Protocol: Activity Type Activity Date Activity User E-sign Co-sign Detail Recorded Client Recorded Date Recorded By Document 12/07/23 09:43 RB wound cemter 12/07/23 09:44 RB Document 12/14/23 10:50 [facility] 12/14/23 10:51 BM 12/07/23 12/14/23 09:43 10:50 Wound Care Center Nurse 3 #1 rt heel -Ulcer Cleansing Rinsed/ Irrigated with Saline -Foul Odor after Cleansing No -Primary Dressing Applied Mepilex Border Mepilex Border, Promogran Morena Matter -Mepilex Border 1 1 -Promogran Morena Matter 1 BLE -Tubular Bandage Single Layer -Size of Tubigrip Used Size E -Size E ($) 2 Right -Tubular Bandage Single Layer -Size of Tubigrip Used Size E -Size E ($) 1 Left -Tubular Bandage Single Layer -Size of Tubigrip Used Size E -Size E ($) 1 Treatment Response Procedure Procedure Tolerated Well Tolerated Well Pain Scale: 0-10 Numeric Is Patient Pain Free? Yes Yes - Visit Discharge Discharge Condition Stable Stable Ambulatory Status Wheelchair Wheelchair Transportation Private Auto Private Auto Accompanied by Medication Reconcilliation completed & No provided to patient/care provider Clinical Summary of Care Provided Yes Facility Type Home Health Assessment/Plan Assessment/Plan (1) Non-pressure chronic ulcer of other part of right foot with fat layer exposed: CODE(S): L97.512 - Non-pressure chronic ulcer of other part of right foot with fat layer exposed (2) Venous stasis dermatitis: CODE(S): I87.2 - Venous insufficiency (chronic) (peripheral) (3) Diabetes mellitus with diabetic polyneuropathy: CODE(S): E11.42 - Type 2 diabetes mellitus with diabetic polyneuropathy (4) Peripheral vascular disease, unspecified: CODE(S): I73.9 - Peripheral vascular disease, unspecified (5) Chronic diastolic (congestive) heart failure: CODE(S): I50.32 - Chronic diastolic (congestive) heart failure (6) Bilateral lower extremity edema: CODE(S): R60.0 - Localized edema (7) Type 2 diabetes mellitus with foot ulcer: CODE(S): E11.621 - Type 2 diabetes mellitus with foot ulcer; L97.509 - Non-pressure chronic ulcer of other part of unspecified foot with unspecified severity (8) Essential (primary) hypertension: CODE(S): I10 - Essential (primary) hypertension PLAN: Plan Patient seen and evaluated Ulceration to the medial aspect of the calcaneal wall of the right foot was debrided as noted in the clinical panel above. Ulceration measures 0.5 cm x 0.4 cm x 0.1 cm. Ulceration demonstrates healthy granular base. No signs of infection. Morena was applied to the wound bed moistened with saline and dressed with dry sterile dressing and [place] SAP dressing. Patient and were instructed to change dressing daily. Tubigrip compression was also applied to bilateral lower extremities. There is improvement with reduction in ulcerative size versus previous visit Discussed need for continued compression given patient's significant edema today. Recommended continuing with Tubigrip compression stocking with eventual transition to a mild compression stocking for every day use. Discussed diet changes today including significant reduction in sodium intake to aid in edema control. Discussed elevation of lower extremities while at rest to aid in continued edema control. Discussed adequate protein intake to continue to aid in wound healing. Elvis supplementation was also recommended. Will seek approval for advanced wound care product, EpiFix for application at next visit. Discussed continued offloading of the site to ensure that shoe gear does not rub on this portion and that the patient does not did get his heel into the bed when transferring or turning over. Discussed signs and symptoms of infection today. Discussed that if he gets increasing redness about the wound site that moves up the leg, purulent drainage emerging from wound site, increasing foul odor from the wound site, or if he experiences fever greater than 101 degree accompanied by nausea, vomiting, chills that these are signs of a progressing infection and he should report to the ED to receive IV antibiotics and for further evaluation. He and his are understanding of this today. The following work up and care recommendations were made: Dressing: Morena, dry sterile dressing, [place] SAP dressing. Tubigrip compression to bilateral lower extremity, he is to change dressings daily. Wash: Soap and water Tissue growth optimization: Morena/SAP dressing Offload: Continue to ensure no pressure to the medial aspect of the heel. Also recommended waffle foam offloading boot Vascular: DP and PT pulses weakly palpable with delayed capillary fill time. It has been recommended per his PCP, Lathe Sander, and Legislative Advocate based on LEAS from July 2023 that he undergo following with vascular physician however patient does continue to decline. Edema: +4 pitting edema bilateral lower extremity. Discussed continued elevation of lower extremities, reduction of sodium intake/diet control/lifestyle modification. Discussed Tubigrip compression to be worn to aid in edema control. Infection: No signs of infection Pain: May take [id number] Tylenol Extra Strength for any discomfort. Host factors: DM type II with peripheral polyneuropathy, peripheral vascular disease, lower extremity swelling, chronic venous stasis, CHF, advanced age. The etiology of thickened toenails was briefly reviewed including fungus or microtrauma. The nails 1, 2, 3, 4, and 5 of the left and right foot were debrided with a nail nipper after verbal consent was obtained without incident. The nails were 1, 2, 3, 4, and 5 of the left and right foot debrided in length and thickness to reduce pressure, potential fungal load, and to prevent wound formation. The patient tolerated this well. The patient elects proceed with palliative care only at this time with To wear protective and supportive shoes. To check feet daily and keep webspaces clean and dry. To moisturize skin to preserve skin integrity was also recommended. I answered all the patient's questions. To return to the wound healing center in 1 week or call sooner if the patient has any questions or concerns.
== END 2023-12-15 23:59 | disposition home or self-care (01) ==
LOC: WC 10:00
PROVIDERS: PCP Internal Medicine; Referring Provider Internal Medicine; Visit Provider Student in an Organized Health Care Education/Training Program
DX: E11.621 Type 2 diabetes mellitus with foot ulcer (principal); L97.412 Non-pressure chronic ulcer of right heel and midfoot with fat layer exposed; I50.32 Chronic diastolic (congestive) heart failure; I13.0 Hypertensive heart and chronic kidney disease with heart failure and stage 1 through stage 4 chronic kidney disease, or unspecified chronic kidney disease; E11.42 Type 2 diabetes mellitus with diabetic polyneuropathy; E11.22 Type 2 diabetes mellitus with diabetic chronic kidney disease; E11.51 Type 2 diabetes mellitus with diabetic peripheral angiopathy without gangrene; E11.59 Type 2 diabetes mellitus with other circulatory complications; Z79.4 Long term (current) use of insulin; N18.31 Chronic kidney disease, stage 3a; Z87.891 Personal history of nicotine dependence; I87.2 Venous insufficiency (chronic) (peripheral); Z79.01 Long term (current) use of anticoagulants; Z79.899 Other long term (current) drug therapy; Z79.84 Long term (current) use of oral hypoglycemic drugs
CPT/HCPCS: 11042; 99214; G0463

== ENCOUNTER → 2024-02-13 | Outpatient (CLI) | payer MEDICARE, SELFPAY ==
--- NOTE | 2024-02-13 09:49 | RAD_ITS ---
STUDY: X-RAY CHEST REASON FOR EXAM: Male, 88 years old. Shortness of breath, CHF TECHNIQUE: PA and lateral views of the chest. COMPARISON: 10/05/2023 FINDINGS: The lungs are clear and expanded. No change in the moderate left pleural effusion with left lower lobe atelectasis. Also no change in the tiny right pleural effusion. Normal size heart. Normal mediastinum and dmitry. Normal visualized pulmonary arteries. Normal visualized aortic arch and descending thoracic aorta. Normal visualized thoracic spine. Normal visualized ribs, clavicles, and shoulders. There is no demonstrated abnormality of the visualized soft tissue structures of the upper abdomen. RAD/Chest PA and Lateral IMPRESSION: No change in bilateral pleural effusions. Electronically Signed: Harvinder Barone MD at 8:54 EDT ,
[2024-02-13 10:10] LABS: Hematocrit 39.8 % (40-54); Hemoglobin 12.4 g/dL (13.0-16.5); Mean Corp Hgb Conc 31.2 g/dL (32-36); Mean Corpuscular Volume 93.2 fL (80-94); Mean Platelet Vol. 10.1 fl (6.2-12.0); Platelet Count 228 K/mm3 (150-450); RBC Distribution Width CV 15.9 % (11.6-14.6); RBC Distribution Width SD 54.4 fl (35.1-43.9); Red Blood Count 4.27 M/mm3 (4.6-6.2); White Blood Count 9.8 K/mm3 (4.4-11.0)
[2024-02-13 10:41] LABS: ALB/GLOB Ratio 0.6 RATIO (0.9-2.4); AST(SGOT) 37 U/L (15-37); Alanine Aminotransfer ALT/SGPT 28 U/L (16-61); Albumin, Serum 2.7 g/dL (3.2-5.0); Alkaline Phosphatase 280 U/L (45-117); Anion Gap 6 (5-15); BUN 30 mg/dL (7-18); Calcium,Total 8.5 mg/dL (8.5-10.1); Chloride 103 mmol/L (98-107); Creatinine, Serum 1.76 mg/dL (0.70-1.30); EST Glomerular Filtration Rate 39 mL/min (>60); Est Glom Filt Rate - Afr Amer 47 mL/min (>60); Globulin 4.3 g/dL (2.2-4.2); Glucose 144 mg/dL (74-106); Potassium 3.8 mmol/L (3.5-5.1); Sodium Level 139 mmol/L (136-145)
[2024-02-13 10:45] LABS: BNP,B-Type NATRIURETIC PEPTIDE 203.1 pg/mL (0-100)
== END | disposition home or self-care (01) ==
LOC: LAB 09:38
PROVIDERS: PCP Internal Medicine; Referring Provider Nurse Practitioner Family; Visit Provider Nurse Practitioner Family
DX: R53.1 Weakness (principal); I50.32 Chronic diastolic (congestive) heart failure; I48.11 Longstanding persistent atrial fibrillation; E11.42 Type 2 diabetes mellitus with diabetic polyneuropathy; E11.22 Type 2 diabetes mellitus with diabetic chronic kidney disease; N18.32 Chronic kidney disease, stage 3b; R42 Dizziness and giddiness; R06.02 Shortness of breath; R60.0 Localized edema; Z51.81 Encounter for therapeutic drug level monitoring; Z79.01 Long term (current) use of anticoagulants; Z79.899 Other long term (current) drug therapy
CPT/HCPCS: 36415; 71046; 80053; 83880; 85027

== ENCOUNTER 2024-02-16 13:36 | Inpatient (IN) | payer MEDICARE, SELFPAY ==
[2024-02-16] VITALS (11 sets, daily range): BP systolic 110–132; BP diastolic 55–72; PULSE 53–77; RESP 16–26; TEMP 36.1–36.9; O2SAT 87–97; BMI 42.0; BMI 35.7
--- NOTE | 2024-02-16 13:44 | EKG12_ITS ---
Test Reason : SOB Blood Pressure : / mmHG Vent. Rate : 069 BPM Atrial Rate : 000 BPM P-R Int : 000 ms QRS Dur : 138 ms QT Int : 456 ms P-R-T Axes : 000 119 000 degrees QTc Int : 488 ms Atrial fibrillation Right bundle branch block Septal infarct , age undetermined Lateral infarct , age undetermined Abnormal ECG Confirmed by Rome Hansen ([id number]), features editor MEJIA LUO ([id number]) on 02/19/2024 2:03:39 PM Referred By: KANDACE Confirmed By:Rome Hansen
--- NOTE | 2024-02-16 13:44 | RAD_ITS ---
STUDY: X-RAY CHEST REASON FOR EXAM: Male, 88 years old. Shortness of breath, hypoxia TECHNIQUE: Single AP portable view of the chest. COMPARISON: Comparison is made with prior study February 13, 2024. FINDINGS: EKG electrodes are seen. Stable moderate-sized left pleural effusion with left basilar infiltration and/or atelectasis. Right basilar atelectasis and/or infiltrate with blunting of the right costophrenic angle. Mild degree of vascular congestion. Normal size heart. Normal mediastinum and dmitry. Normal visualized pulmonary arteries. There is atherosclerotic calcification of the aortic arch with tortuosity. There are diffuse degenerative changes of the visualized thoracic spine. Normal visualized ribs, clavicles, and shoulders. There is no demonstrated abnormality of the visualized soft tissue structures of the upper abdomen. RAD/Chest 1 View (Portable) IMPRESSION: Stable examination with evidence of bilateral pleural effusions and bibasilar infiltrates and/or atelectasis is worse on the left side with mild degree of superimposed CHF. Electronically Signed: Matt Fragoos MD at 14:24 EDT ,
--- NOTE | 2024-02-16 13:45 | ED.VIS.DYS ---
HPI History of Present Illness Chief Complaint: Shortness of Breath Narrative Narrative: 88-year-old male past medical history of diabetes, hypertension, atrial fibrillation, on Eliquis presents with hypoxia and shortness of breath. He and his relate history that they were at their primary care provider's office today. He was found to have a low pulse ox. They placed him on oxygen. 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 It is never been drained. They state that he was told to hold his Eliquis and they did not take it today. He was sent to the emergency department because of the hypoxia with left pleural effusion. does state that there is a little fluid on his right as well. He denies any chest pain, no fevers or chills, no other symptoms. [facility] Medical History Asymmetric septal hypertrophy History of TIA (transient ischemic attack) (10/2020) ATN (acute tubular necrosis) Acute hepatitis BPH (benign prostatic hyperplasia) Cholecystitis, acute Stroke-like symptoms Aphasia Longstanding persistent atrial fibrillation Chronic diastolic (congestive) heart failure Colon cancer Secondary pulmonary arterial hypertension New onset atrial fibrillation (12/24/18) Type 2 diabetes mellitus Home Medications ?Medication ?Instructions ?Recorded ?Last Taken ?Type apixaban 2.5 mg tablet 2.5 mg PO BID BLOOD THINNER 10/16/20 10/16/20 History amlodipine 2.5 mg tablet 2.5 mg PO DAILY BP #90 tabs 07/31/23 Unknown Rx glimepiride 4 mg tablet 4 mg PO BID diabetes 10/05/23 Unknown History furosemide 40 mg tablet (Lasix) 40 mg PO DAILY #90 tabs 11/10/23 Unknown Rx spironolactone 25 mg tablet 25 mg PO DAILY #30 tabs 11/10/23 Unknown Rx ammonium lactate 12 % lotion topical QDAY 02/07/24 Unknown History insulin NPH isoph U-100 human 100 15 unit subcut BID 02/07/24 Unknown History unit/mL (3 mL) subcutaneous pen (Humulin N NPH U-100 Insulin KwikPen) metoprolol tartrate 25 mg tablet 25 mg PO BID 02/07/24 Unknown History [id number] 300 mcg-K 60 1 tab PO DAILY SUPPLEMENT 02/07/24 Unknown History mcg-lycop 600 mcg-lutein 300 mcg tablet Allergy/AdvReac Type Severity Reaction Status Date / Time dabigatran etexilate (From Allergy skin of Verified 02/09/24 10:06 Pradaxa) legs peeled/itching lisinopril Allergy Angioedema Verified 02/09/24 10:06 meloxicam (From Mobic) Allergy Unknown Verified 02/09/24 10:06 rivaroxaban (From Xarelto) AdvReac skin rash Verified 02/09/24 10:06 sulfamethoxazole (From AdvReac high sugars Verified 02/09/24 10:06 Bactrim) trimethoprim (From Bactrim) AdvReac high sugars Verified 02/09/24 10:06 Surgical History H/O local excision of skin lesion (10/26/21) History of cardioversion (2013) History of partial colectomy Social History household members: spouse Smoking Status: Former smoker how long ago did patient quit smokin years ago alcohol intake: never substance use type: does not use caffeine: Yes Type: coffee Number of servings: 3 ROS ROS ED ROS Narrative Constitutional: No fever, no chills. Low pulse ox primary care provider's office. HEENT: No sore throat. No neck pain. No loss of vision. No rhinorrhea. Cardiovascular: No chest pain. No palpitations. No pedal edema. Respiratory: Occasional cough, positive shortness of breath. Abdominal: No abdominal pain. No nausea. No vomiting. Genitourinary: No dysuria. No hematuria. Musculoskeletal: No myalgias. No arthralgias. Neurologic: No headaches. No dizziness. No lightheadedness. Skin: No rash. No change in color. Psychiatric: No depression. No anxiety. EXAM Physical Exam Narrative Exam Narrative: Afebrile. Vital signs noted. HEENT: Normocephalic. Atraumatic. PERRL, EOMI. Neck soft and supple. No point tenderness or step off. Cardiovascular: Irregularly irregular rhythm with intermittent bradycardia. No murmurs, rubs, or gallops appreciated. Respiratory: No tachypnea. Decreased breath sounds left base Gastrointestinal: Abdomen soft, nontender, with normoactive bowel sounds. No rebound or guarding. Neurological: Awake. Alert. Nonfocal, nonlateralizing. Skin: No rash. Normal color. No pallor. Musculoskeletal: No pedal edema. Full range of motion extremities. Const Vital Signs: 02/16/24 13:37 02/16/24 13:44 02/16/24 14:14 Temperature 98.4 F Temperature Source Oral Pulse Rate 65 Respiratory Rate 20 H Respiratory Effort Short of Breath Respiratory Depth Deep Respiratory Pattern Normal Blood Pressure 131/55 H Blood Pressure Mean 80 Pulse Ox 87 97 Oxygen Delivery Method Nasal Cannula Oxygen Flow Rate (L/min) 3 3 02/16/24 14:36 02/16/24 14:43 Temperature 98.1 F Temperature Source Oral Pulse Rate 77 77 Respiratory Rate 18 18 Respiratory Effort Respiratory Depth Respiratory Pattern Blood Pressure 114/57 L 125/72 H Blood Pressure Mean 76 89 Pulse Ox 97 97 Oxygen Delivery Method Nasal Cannula Nasal Cannula Oxygen Flow Rate (L/min) 3 3 MDM MDM MDM Narrative Medical decision making narrative: Differential diagnosis includes but not limited to pleural effusions causing hypoxia versus pneumonia. I have low suspicion for pneumothorax because the history and physical does not support this. Additionally, I have low suspicion for pulmonary embolism as he has been on Eliquis except for today's morning dose. Comprehensive workup was pursued. I reviewed with the laboratory work and she has a normal white count of 8.9, hemoglobin slightly anemic at 12.6, platelet count normal at 254, BUN elevated at 37 with creatinine 1.61 but this is a chronic kidney injury. Glucose elevated at 121 with normal anion gap of 5. High-sensitivity troponin is elevated at 103. BNP is slightly elevated at 246. I do feel that his elevated troponin may be type II injury given his chronic kidney injury, and some component of congestive heart failure. He is not having any chest pain currently. He is also on Eliquis and although his stated he did not take it this morning, patient states that he had already taken it. Additionally EKG interpreted by myself independently demonstrates atrial fibrillation at 69 bpm with a right bundle branch block but no acute ST changes. No STEMI. Chest x-ray interpreted by myself independently in 1 view does show the bilateral pleural effusions left greater than right. No significant change from chest x-ray dated 02/13/2024. I reviewed the radiology report which confirms my independent interpretation. Given his hypoxia, and his pleural effusions, I discussed patient with Dr. Savi Villareal for admission to the PCU. Was not felt that he needed heparin for his elevated troponin given the aforementioned circumstances. Disposition is admit in stable condition. History & Record Review Discussion w/independent historian: Patient Additional record(s) reviewed:: Prior labs Lab Data Attestation: I reviewed the patient's lab results. Labs: Laboratory Results - last 24 hr 02/16/24 13:46 WBC 8.9 RBC 4.39 L Hgb 12.6 L Hct 40.5 MCV 92.3 MCH 28.7 MCHC 31.1 L RDW Std Deviation 53.3 H RDW Coeff of [place]mas 15.8 H Plt Count 254 MPV 10.0 Immature Gran % (Auto) 0.600 Neut % (Auto) 66.2 Lymph % (Auto) 19.8 [place] % (Auto) 10.5 H Eos % (Auto) 2.4 Baso % (Auto) 0.5 Absolute Neuts (auto) 5.9 Absolute Lymphs (auto) 1.76 Nucleated RBC % 0 Sodium 138 Potassium 3.9 Chloride 107 Carbon Dioxide 26.0 Anion Gap 5 BUN 37 H Creatinine 1.61 H Estim Creat Clear Calc 37.63 Est GFR (MDRD) Af Amer 52 L Est GFR (MDRD) Non-Af 43 L BUN/Creatinine Ratio 23.0 H Glucose 121 H Calcium 8.6 Troponin I High Sens 103 H B-Natriuretic Peptide 246.0 H Radiography Chest X-Ray - ED: 1 View, Read by ED Physician and Read by Radiologist Diagnostic Testing: Clinical Impression(s) from Imaging Studies Chest X-Ray 02/16/24 13:44 IMPRESSION: Stable examination with evidence of bilateral pleural effusions and bibasilar infiltrates and/or atelectasis is worse on the left side with mild degree of superimposed CHF. Electronically Signed: Matt Fragoso MD at 14:24 EDT , Management Discussion w/another healthcare provider: Hospitalist Discharge Plan Dx/Rx/DC Orders Clinical Impression: Bilateral pleural effusion, Anticoagulant long-term use, Hypoxia, Elevated troponin, Chronic kidney disease (CKD) Disposition Disposition: Acute Care Hospital [facility]
[2024-02-16 13:59] LABS: Absolute Lymphocyte Count 1.76 X10^3/uL (0.83-4.51); Absolute Neutrophil Count 5.9 X10^3/uL (2.0-7.7); Basophil# 0.04 X10^3/uL; Basophil% 0.5 % (0-1); Eosinophil# 0.21 X10^3/uL; Eosinophils% 2.4 % (0-5); Hematocrit 40.5 % (40-54); Hemoglobin 12.6 g/dL (13.0-16.5); Lymphocyte # 1.76 X10^3/ul (0.83-4.51); Lymphocyte % 19.8 % (19-41); Mean Corp Hgb Conc 31.1 g/dL (32-36); Mean Corpuscular Hgb 28.7 pg (27.0-32.0); Mean Corpuscular Volume 92.3 fL (80-94); Monocyte# 0.93 X10^3/uL; Monocyte% 10.5 % (0-10); NRBC Flagged by Analyzer 0 % (0-5); Neutrophil # 5.89 X10^3/uL (2.7-7.7); Neutrophil % 66.2 % (47-70); Platelet Count 254 K/mm3 (150-450); RBC Distribution Width CV 15.8 % (11.6-14.6); RBC Distribution Width SD 53.3 fl (35.1-43.9); Red Blood Count 4.39 M/mm3 (4.6-6.2); White Blood Count 8.9 K/mm3 (4.4-11.0)
[2024-02-16 14:25] LABS: Anion Gap 5 (5-15); BUN 37 mg/dL (7-18); Calcium,Total 8.6 mg/dL (8.5-10.1); Chloride 107 mmol/L (98-107); Creatinine, Serum 1.61 mg/dL (0.70-1.30); EST Glomerular Filtration Rate 43 mL/min (>60); Est Glom Filt Rate - Afr Amer 52 mL/min (>60); Estimated Creatinine Clearance 37.63 ml/min; Glucose 121 mg/dL (74-106); Potassium 3.9 mmol/L (3.5-5.1); Sodium Level 138 mmol/L (136-145); Troponin-I HS 103 pg/mL (3.0-78.0)
[2024-02-16] MEDS: Furosemide 40 MG/4 ML Vial IV (14:58)
--- NOTE | 2024-02-16 15:37 | CASEMGMT ---
Social Work POA for healthcare document is in [facility] w/the living will provision initialed. Heidi Barreto is listed as healthcare POA. WOOD Swartz
--- NOTE | 2024-02-16 15:38 | HP.PCM.HOS_ITS ---
HPI - General General Date of Admission: 02/16/24 Date of Service: 02/16/24 Chief Complaint: Hypoxia HPI Narrative JHONY FORBES, is a 88y/o male with a history of diabetes, A-fib on Eliquis, hypertension, who presented to [facility] ED 02/16/2024 with hypoxia and shortness of breath. Patient was at his primary care office today and was found to have low pulse ox and placed on O2 and sent to ED. Known history of left pleural effusion diagnosis cardiology's office but has never been drained. In the ED patient was 87% on 3L O2. Chest x-ray demonstrated stable left pleural effusion with superimposed CHF with a BNP of 246 and troponin of 103. Due to his hypoxia and fluid overload hospitalist contacted for admission. Patient evaluated at bedside with family member present, patient has had worsening shortness of breath over the past month especially with exertion and laying down in bed and will have to prop himself up on multiple pillows, occasionally will feel dizzy and lightheaded as well with the shortness of breath. Has some chest pain with direct palpation over anterior left chest wall that is not new but did not report any other kind of chest pain. Reports slight cough occasionally, worsened swelling in his legs. Is prescribed Lasix and spironolactone but reports when he takes these he sometimes feels dizzy, sometimes feels like he might have hallucinations, sometimes has abdominal pain, also pees more so he only has been taking these intermittently and when he does take them recently does not sound that they have been effective. Patient is scheduled in 2 weeks for a thoracentesis for his left-sided pleural effusion and was instructed to hold his Eliquis for 7 days prior to this. Feels somewhat weak all over as well, no fevers. [facility] Medical History Asymmetric septal hypertrophy History of TIA (transient ischemic attack) (10/2020) ATN (acute tubular necrosis) Acute hepatitis BPH (benign prostatic hyperplasia) Cholecystitis, acute Stroke-like symptoms Aphasia Longstanding persistent atrial fibrillation Chronic diastolic (congestive) heart failure Colon cancer Secondary pulmonary arterial hypertension New onset atrial fibrillation (12/24/18) Type 2 diabetes mellitus Home Medications ?Medication ?Instructions ?Recorded ?Last Taken ?Type apixaban 2.5 mg tablet 2.5 mg PO BID BLOOD THINNER 10/16/20 10/16/20 History amlodipine 2.5 mg tablet 2.5 mg PO DAILY BP #90 tabs 07/31/23 Unknown Rx glimepiride 4 mg tablet 4 mg PO BID diabetes 10/05/23 Unknown History furosemide 40 mg tablet (Lasix) 40 mg PO DAILY #90 tabs 11/10/23 Unknown Rx spironolactone 25 mg tablet 25 mg PO DAILY #30 tabs 11/10/23 Unknown Rx ammonium lactate 12 % lotion topical QDAY 02/07/24 Unknown History insulin NPH isoph U-100 human 100 15 unit subcut BID 02/07/24 Unknown History unit/mL (3 mL) subcutaneous pen (Humulin N NPH U-100 Insulin KwikPen) metoprolol tartrate 25 mg tablet 25 mg PO BID 02/07/24 Unknown History [id number]-[id number] 300 mcg-K 60 1 tab PO DAILY SUPPLEMENT 02/07/24 Unknown History mcg-lycop 600 mcg-lutein 300 mcg tablet Allergy/AdvReac Type Severity Reaction Status Date / Time dabigatran etexilate (From Allergy skin of Verified 02/09/24 10:06 Pradaxa) legs peeled/itching lisinopril Allergy Angioedema Verified 02/09/24 10:06 meloxicam (From Mobic) Allergy Unknown Verified 02/09/24 10:06 rivaroxaban (From Xarelto) AdvReac skin rash Verified 02/09/24 10:06 sulfamethoxazole (From AdvReac high sugars Verified 02/09/24 10:06 Bactrim) trimethoprim (From Bactrim) AdvReac high sugars Verified 02/09/24 10:06 Surgical History H/O local excision of skin lesion (10/26/21) History of cardioversion (2013) History of partial colectomy Social History household members: spouse Smoking Status: Former smoker how long ago did patient quit smokin years ago alcohol intake: never substance use type: does not use caffeine: Yes Type: coffee Number of servings: 3 ROS ROS Narrative General: Denies fever/chills HENT: Sometimes stuffy nose EYES: Denies changes in vision Resp: slight cough, increased SOB [id number] with orthopnea Cardiac: Some chest wall tenderness GI: Denies abdominal pain at present, denies changes in bowel, denies nausea/vomiting : urinates frequently at night Extremity: increasing LE swelling MSK: Generalized weakness Neuro: Denies any numbness/tingling Heme: Denies any bleeding or bruising 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 Psychiatric: No complaints voiced Vital Signs Vital Signs Vital Signs: 02/16/24 13:37 02/16/24 13:44 02/16/24 14:14 Temperature 98.4 F Temperature Source Oral Pulse Rate 65 Respiratory Rate 20 H Respiratory Effort Short of Breath Respiratory Depth Deep Respiratory Pattern Normal Blood Pressure 131/55 H Blood Pressure Mean 80 Pulse Ox 87 97 Oxygen Delivery Method Nasal Cannula Oxygen Flow Rate (L/min) 3 3 02/16/24 14:36 02/16/24 14:43 02/16/24 15:00 Temperature 98.1 F 98.3 F Temperature Source Oral Oral Pulse Rate 77 77 77 Respiratory Rate 18 18 18 Respiratory Effort Respiratory Depth Respiratory Pattern Blood Pressure 114/57 L 125/72 H 125/69 H Blood Pressure Mean 76 89 87 Pulse Ox 97 97 95 Oxygen Delivery Method Nasal Cannula Nasal Cannula Nasal Cannula Oxygen Flow Rate (L/min) 3 3 3 02/16/24 15:19 Temperature 98 F Temperature Source Pulse Rate 66 Respiratory Rate 26 H Respiratory Effort Respiratory Depth Respiratory Pattern Blood Pressure 110/64 Blood Pressure Mean 79 Pulse Ox 96 Oxygen Delivery Method Oxygen Flow Rate (L/min) Weight Weight: 118.1 kg Body Mass Index (BMI) 42.0 Physical Exam Narrative General: Alert, oriented HEENT: Atraumatic Eyes: Anicteric, normal conjunctiva, extraocular movements grossly intact Neck: Supple Respiratory: Diminished left greater than right with crackles and increased respiratory effort Cardiovascular: Irregularly irregular GI: Soft, nontender, nondistended Extremities: Lower extremity edema 2+ pitting Musculoskeletal: Moving all extremities Neuro: No overt focal neurological deficits Skin: Lesion concerning for skin cancer on head Psych: Overall cooperative Results Lab / Micro Data 02/16/24 13:46 02/16/24 13:46 Labs: Laboratory Results - last 24 hr 02/16/24 13:46: WBC 8.9, RBC 4.39 L, Hgb 12.6 L, Hct 40.5, MCV 92.3, MCH 28.7, M CHC 31.1 L, RDW Std Deviation 53.3 H, RDW Coeff of [place]mas 15.8 H, Plt Count 254, MPV 10.0, Immature Gran % (Auto) 0.600, Neut % (Auto) 66.2, Lymph % (Auto) 19.8, [place] % (Auto) 10.5 H, Eos % (Auto) 2.4, Baso % (Auto) 0.5, Absolute Neuts (auto) 5.9, Absolute Lymphs (auto) 1.76, Nucleated RBC % 0, Sodium 138, Potassium 3.9, Chloride 107, Carbon Dioxide 26.0, Anion Gap 5, BUN 37 H, Creatinine 1.61 H, Estim Creat Clear Calc 37.63, Est GFR (MDRD) Af Amer 52 L, Est GFR (MDRD) Non-Af 43 L, BUN/Creatinine Ratio 23.0 H, Glucose 121 H, Calcium 8.6, Troponin I High Sens 103 H, B-Natriuretic Peptide 246.0 H Imaging Radiology Impression Chest X-Ray 02/16/24 13:44 IMPRESSION: Stable examination with evidence of bilateral pleural effusions and bibasilar infiltrates and/or atelectasis is worse on the left side with mild degree of superimposed CHF. Electronically Signed: Matt Fragoso MD at 14:24 EDT , Assessment & Plan Assessment/Plan (1) Acute exacerbation of chronic heart failure: (2) Chronic kidney disease (CKD): (3) Acute respiratory failure with hypoxia and hypercapnia: (4) Chronic a-fib: (5) Elevated troponin: (6) HTN (hypertension): (7) DM2 (diabetes mellitus, type 2): PLAN: Plan # Hypoxia secondary to acute exacerbation of chronic heart failure with preserved ejection fraction complicated by chronic left sided pleural effusion -Has had effusion on CXR since 10/05/23 which has been stable appearing however appears to have vascular congestion in addition to that -And BNP elevated at 246 -Last echo 2020 with EF 65% and severe asymmetric septal hypertrophy with RVSP of 47 and unable to assess diastolic dysfunction, does follow with cardiology however and has documented history of heart failure with preserved ejection fraction -Admit to telemetry -Given dose of IV Lasix in ED, continue IV Lasix -Pt reports he does not tolerate oral Lasix and may need to switch diuretics on discharge -Repeat echo ordered -Daily weights, I's and O's -Fluid restriction, heart healthy diet -Looking at imaging patient's left-sided pleural effusion is unchanged and suspect his hypoxia is due to his lack of compliance with diuretics causing acute exacerbation of heart failure, will diurese, can consider thoracentesis while inpatient however patient improved back to baseline can likely keep his appointment for outpatient thoracentesis and Eliquis can be held based on his research technologist recommendation #Elevated troponin -Suspect due to patient's hypoxia and AECHF -No chest pain or other acute complaints -Low suspicion for active ischemic process -Patient has some left-sided chest wall pain that is not cardiac in nature # Atrial fibrillation -On Eliquis -Continue beta-cat #Type 2 diabetes mellitus -Glucose checks and sliding scale insulin -Will decrease dose of home NPH # Hypertension -Will need to diurese blood pressure 110/64 so we will hold amlodipine continue metoprolol # CKD stage III b -Appears to be at baseline -Avoid nephrotoxic agents -Daily BMPs #Morbid obesity -BMI 42 kg/m? -Complicates treatment, prognosis, outcomes -Recommend weight loss and lifestyle changes #Suspect skin cancer on head -Lesion concerning for cancer -Pt previously followed with dermatology and has had spots removed, advised to follow-up on discharge #DVT ppx: On Eliquis Savi Villareal MD Time spent in the patient's overall evaluation,decision-making process, review of diagnostic data, adjustment of management, discussion with other providers, nursing nursing and ancillary staff involved in patient's care documentation, 57 minutes Charges/Coding Visit Charges Inpatient E&M: 18278 Init Hosp L2
--- NOTE | 2024-02-16 15:53 | ECHOCS_ITS ---
Reason For Study: CHF Procedure This was a 2D Doppler, Color Flow transthoracic echocardiogram. The study was technically difficult. Contrast injection was performed. Exam performed portable in patient room. Left Ventricle Severe assymetric septal hypertrophy. The estimated ejection fraction is 55-60 %. Right Ventricle Normal RV size. Mild global right ventricular systolic dysfunction. Atria There is moderate biatrial dilatation. Mitral Valve The mitral valve is structurally normal. No prolapse or stenosis seen. Mild (1+) mitral valve insufficiency. Tricuspid Valve Normal tricuspid valve. Mild to moderate (1-2+) tricuspid valve insufficiency. Aortic Valve Trisinus/trileaflet aortic valve. Pulmonic Valve The pulmonic valve is not well visualized. Great Vessels Normal aortic root. Pericardium/Pleural No pericardial effusion. Large right pleural effusion. Medication Diluted definity 1.5ml given slow IV push to enhance endocardial definition. MMode/2D Measurements & Calculations LVIDd: 4.5 cm IVSd: 1.6 cm Ao root diam: 3.8 cm LVIDs: 2.8 cm LVPWd: 1.2 cm LA dimension: 4.6 cm RVDd: 4.9 cm FS: 38.2 % LAV(MOD-bp): 114.2 ml LVAd ap4: 28.9 cm2 SV(MOD-sp4): 56.5 ml LAV(MOD-bp) Indexed: 51.3 ml/m2 LVLd ap4: 8.1 cm LAV(MOD-sp2): 122.5 ml EDV(MOD-sp4): 84.7 ml LAV(MOD-sp4): 104.5 ml EDV(sp4-el): 87.6 ml LVAs ap4: 14.5 cm2 LVLs ap4: 6.7 cm ESV(MOD-sp4): 28.2 ml ESV(sp4-el): 27.0 ml EF(MOD-sp4): 66.7 % EF(sp4-el): 69.2 % SV(sp4-el): 60.6 ml LA A4 area: 31.0 cm2 RA A4 area: 28.6 cm2 Doppler Measurements & Calculations MV E max clay: 92.4 cm/sec MV V2 max: 117.6 cm/sec Ao V2 max: 98.5 cm/sec MV max P.5 mmHg Ao max P.9 mmHg MV V2 mean: 49.7 cm/sec MV mean P.4 mmHg MV V2 VTI: 28.5 cm LV V1 max: 78.8 cm/sec PA V2 max: 44.7 cm/sec TR max clay: 273.9 cm/sec LV V1 max P.5 mmHg PA max PG (full): 0.06 mmHg TR max P.0 mmHg ECHO/Echo Complete W/ Contrast Interpretation Summary The estimated ejection fraction is 55-60 %. Asymeteric severe septal Hypertrophy large pleural effusion No change from prior ECHO Ordering Physician: Savi Villareal Performed By: Bentley Ortiz RCS
[2024-02-16 17:17] LABS: Troponin-I HS 92 pg/mL (3.0-78.0)
[2024-02-16 18:27] LABS: Bedside Glucose 56 mg/dL (74-106)
--- NOTE | 2024-02-16 19:50 | PCM.HOSP.N ---
Hospitalist Note Notified by nursing that patient has been heart rate dropped down into the 20s. Went to review and he did indeed have heart rates are in the 20s and 30s. Currently his heart rate is in the 50s to 60s. He was sleeping when initially arrived but he easily awoke. He was on room air and having no respiratory distress. Told patient about his low heart rates and that we will continue to monitor that and if necessary give him medications. He expressed understanding. Discussed with nursing, I will have as needed atropine ordered and he continues to have sustained bradycardia he may need to be initiated on a dopamine drip. Discontinue metoprolol 25 twice daily.
[2024-02-16] MEDS: Insulin NPH Human 100 UNITS/ML PEN 10 UNITS SC (21:45)
[2024-02-16] MEDS: APIXABAN 2.5 MG TABLET (WCH) PO (21:53)
[2024-02-16] MEDS: 0.9% Saline Lock 10 ML Syringe IV (21:56)
[2024-02-16 22:23] LABS: Bedside Glucose 116 mg/dL (74-106)
[2024-02-17] VITALS (9 sets, daily range): BP systolic 110–133; BP diastolic 61–76; PULSE 43–79; RESP 16–18; TEMP 36.3–36.5; O2SAT 93–96; BMI 35.9
[2024-02-17 06:31] LABS: Absolute Lymphocyte Count 1.04 X10^3/uL (0.83-4.51); Absolute Neutrophil Count 8.7 X10^3/uL (2.0-7.7); Basophil# 0.02 X10^3/uL; Basophil% 0.2 % (0-1); Eosinophil# 0.04 X10^3/uL; Eosinophils% 0.4 % (0-5); Hematocrit 41.7 % (40-54); Hemoglobin 13.2 g/dL (13.0-16.5); Lymphocyte # 1.04 X10^3/ul (0.83-4.51); Lymphocyte % 9.5 % (19-41); Mean Corp Hgb Conc 31.7 g/dL (32-36); Mean Corpuscular Hgb 29.3 pg (27.0-32.0); Mean Corpuscular Volume 92.7 fL (80-94); Mean Platelet Vol. 9.7 fl (6.2-12.0); Monocyte# 1.09 X10^3/uL; NRBC Flagged by Analyzer 0 % (0-5); Neutrophil # 8.67 X10^3/uL (2.7-7.7); Neutrophil % 79.5 % (47-70); Platelet Count 241 K/mm3 (150-450); RBC Distribution Width CV 15.8 % (11.6-14.6); RBC Distribution Width SD 53.8 fl (35.1-43.9); White Blood Count 10.9 K/mm3 (4.4-11.0)
[2024-02-17] MEDS: Dextrose 10%-Water 250 ML 999 ML IV (07:18)
[2024-02-17 07:32] LABS: Bedside Glucose 69 mg/dL (74-106)
[2024-02-17 07:33] LABS: Anion Gap 5 (5-15); BUN 35 mg/dL (7-18); BUN/Creat Ratio 21.6 RATIO (10-20); Calcium,Total 8.6 mg/dL (8.5-10.1); Chloride 108 mmol/L (98-107); Cholesterol 79 mg/dL (200); Creatinine, Serum 1.62 mg/dL (0.70-1.30); EST Glomerular Filtration Rate 43 mL/min (>60); Est Glom Filt Rate - Afr Amer 52 mL/min (>60); Estimated Creatinine Clearance 36.66 ml/min; Glucose 43 mg/dL (74-106); High Density Lipoprotein 28 mg/dL; Potassium 3.5 mmol/L (3.5-5.1); Sodium Level 140 mmol/L (136-145); Thyroid Stim Hormone (TSH) 2.56 uIU/mL (0.358-3.74); Triglycerides 58 mg/dL; Very Low Density Lipoprotein 12 mg/dL (5-40)
[2024-02-17 07:48] LABS: Hemoglobin A1c 8.7 % (3.8-5.6)
--- NOTE | 2024-02-17 07:50 | NURSING ---
Patient am blood glucose check 35. Rechecked and level was 70. patient given 120 ml apple juice. Follow up check of sugar was 44 and repeat test was 37. another 120 ml apple juice given and 250 ml Dextrose 10% bolus given at rate 999. blood glucose by finger stick after dextrose 10% bolus complete was 116.
[2024-02-17 08:17] LABS: International Normalized Ratio 1.7; Prothrombin Time (Protime)PT. 20.1 SECONDS (11.7-14.9)
--- NOTE | 2024-02-17 09:00 | CASEMGMT ---
ANDREEA MARS Face to Face with patient for initial transition planning/care coordination assessment. ANDREEA MARS introduced self and role at [facility]. Patient lying in bed, alert and oriented. Patient willing to participate in assessment and is able to answer all questions appropriately. Care providers, pharmacy, and demographics verified. Lace: 10 Strata: 3 PCP: Luis Specialists: Isacc night worker Preferred [facility]acy: [facility] Prescription Benefit: yes Living Will/HPOA: yes, significant other Anna Kent LNOK: significant other, daughter Living Arrangements: Patient lives with significant other in a single story condo with ramp to enter. Patient states significant other assist patient at home with ADLs Transportation: significant other DME/HHC: Patient states he has walker, rollator, scooter, raised toilet, shower chair, grab bars. Patient has had [facility] in the past. No previous SNF. Will monitor for home oxygen Patient wishes to discharge home, will monitor progress with therapy. ANDREEA MARS discussed possible HHC vs SNF pending progress with therapy. Patient states he would like to go home with significant other but asked CM to discuss with significant other when she comes to visit patient, CM to attempt to visit with significant other. Patient states he has no further needs or concerns at this time. CM to follow for discharge planning needs that may arise. Disposition Plan: TBD, anticipate HHC vs SNF pending progress with therapy. Sabine CABEZAS, RN, CM
[2024-02-17] MEDS: Spironolactone 25 MG Tablet PO (11:18)
[2024-02-17] MEDS: Furosemide 40 MG/4 ML Vial IV (11:19)
[2024-02-17] MEDS: 0.9% Saline Lock 10 ML Syringe IV (11:21)
[2024-02-17 12:07] LABS: Bedside Glucose 116 mg/dL (74-106)
--- NOTE | 2024-02-17 12:15 | CASEMGMT ---
Social Work SW spoke w/pt's significant other Heidi and her daughter Trinity in regard to discharge plan. Both are in agreement that pt needs SNF, though Heidi states pt will not want to go. Heidi and her daughter explain that she has a bad back and is limited in how much she can help pt. SW provided to Heidi a list from [facility] of [facility] facilities in network w/pt's insurance, in pt's preferred geographic area, and complete w/quality and resource use data. We discussed options, and they think TCU may be a good choice. SW will come back to speak w/pt with family once he is done using the restroom, to discuss further. WOOD Swartz
[2024-02-17 12:29] LABS: Bedside Glucose 80 mg/dL (74-106)
--- NOTE | 2024-02-17 12:55 | CASEMGMT ---
Addendum entered by Chanelle Sanders 02/17/24 16:32: Social Work Referral made to TCU. SW to follow up on Monday. WOOD Swartz Original Note: Social Work SW met w/pt, Heidi and Heidi' daughter in the room in regard to discharge plan. Pt is agreeable to a referral to TCU. SW will make referral, SW to follow up on Monday. RADHA SwartzS
--- NOTE | 2024-02-17 14:29 | PCM.PROGNOTE ---
Subjective Subjective Patient seen and examined. His significant other and her daughter were by his bedside. He said he felt much better and his breathing has improved. He has been bradycardic this morning, with HR going as low s 43. He was also hypoglycemic this morning, with MO going down to 43. BP is 118/62. He is on 1L of oxygen. Objective Data Objective Data Vital Signs: Vital Signs Temp Pulse Resp BP Pulse Ox O2 Del Method O2 Flow Rate 97.5 F L 43 L 18 118/62 95 Nasal Cannula 1 02/17/24 10:00 02/17/24 11:20 02/17/24 10:00 02/17/24 11:20 02/17/24 10:00 02/17/24 10:00 02/17/24 10:01 Oxygen Flow Rate (L/min) 1 Oxygen Delivery Method Nasal Cannula Weight: 235 lb 14.314 oz Body Mass Index (BMI) 35.9 Intake & Output: Intake and Output for Last 24 Hours 02/15/24 02/16/24 02/17/24 23:59 23:59 23:59 Intake Total 360 / 480 1010 / 1010 Output Total 1750 / 1750 Balance 360 / -170 -740 / -740 Lab / Micro Data 02/17/24 06:04 02/17/24 06:04 Labs: Laboratory Results - last 24 hr 02/16/24 16:30: Troponin I High Sens 92 H 02/16/24 16:45: POC Glucose 56 L 02/16/24 21:40: POC Glucose 116 H 02/17/24 06:04: WBC 10.9, RBC 4.50 L, Hgb 13.2, Hct 41.7, MCV 92.7, MCH 29.3, MCHC 31.7 L, RDW Std Deviation 53.8 H, RDW Coeff of Almas 15.8 H, Plt Count 241, MPV 9.7, Immature Gran % (Auto) 0.400, Neut % (Auto) 79.5 H, Lymph % (Auto) 9.5 L, Kimble % (Auto) 10.0, Eos % (Auto) 0.4, Baso % (Auto) 0.2, Absolute Neuts (auto) 8.7 H, Absolute Lymphs (auto) 1.04, Nucleated RBC % 0, PT 20.1 H, INR 1.7, Sodium 140, Potassium 3.5, Chloride 108 H, Carbon Dioxide 27.0, Anion Gap 5, BUN 35 H, Creatinine 1.62 H, Estim Creat Clear Calc 36.66, Est GFR (MDRD) Af Amer 52 L, Est GFR (MDRD) Non-Af 43 L, BUN/Creatinine Ratio 21.6 H, Glucose 43 L*, Hemoglobin A1c 8.7 H, Calcium 8.6, Magnesium 2.0, Triglycerides 58, Cholesterol 79, LDL Cholesterol 39, VLDL Cholesterol 12, HDL Cholesterol 28 L, TSH 2.56 02/17/24 07:15: POC Glucose 69 L 02/17/24 07:38: POC Glucose 116 H 02/17/24 11:16: POC Glucose 80 Radiography Diagnostic Testing: Radiology Impression Echocardiogram 02/16/24 15:53 Interpretation Summary The estimated ejection fraction is 55-60 %. Asymeteric severe septal Hypertrophy large pleural effusion No change from prior ECHO Ordering Physician: Savi Villareal Performed By: Bentley Ortiz RCS Physical Exam Const alert, oriented x3 and no apparent distress General Appearance: cooperative and well developed HEENT normocephalic, head/scalp atraumatic, moist oral mucous membranes and oropharynx normal Eyes PERRL and EOMs intact bilaterally Neck no lymphadenopathy, supple and no JVD Lymph Lymphatic: no lymphadenopathy noted and no lymphedema noted Resp Resp Narrative: diminished breath sounds bibasally, no wheezes or crackles. on 1L of oxygen. Cardio regular rate, regular rhythm, S1 normal heart sound, S2 normal heart sound and no murmurs GI normal to inspection, nondistended, normoactive bowel sounds, soft to palpation and non-distended Extremity normal capillary refill and no calf tenderness Extremity Narrative: bilateral 2+ lower exremity edema General Extremity: no tenderness to palpation of joints or extremities Skin Skin Narrative: has a raised lesion on the right ear, lesion has superficial ulceration, and is concerning for malignancy Neuro CN's II-XII intact bilaterally, no focal motor deficits, no sensory deficits noted and deep tendon reflexes 2+ bilaterally Motor Exam: strength 5/5 throughout and general weakness Psych thought process normal and cooperative Appearance: appropriate Assessment & Plan Assessment/Plan (1) HTN (hypertension): (2) Acute exacerbation of chronic heart failure: (3) Pleural effusion, left: PLAN: Plan #Hypoxia due to large left [pleural effusion Patient has a known left pleural effusion and had been scheduled for thoracentesis in 2 weeks. However he went to see his PCP and he was hypoxic with saturation going down to 87% on 3 L of oxygen. BNP was also elevated at 246 and troponin was 103. There is concern for superimposed acute on chronic heart failure. He is being diuresed with IV Lasix. will hold on eliquis so patient can have thoracentesis next week before discharge. Breathing treatment with bronchodilators. Titrate oxygen to maintain sats >90% 2D echo:EF is 55-60% with asymmetric severe septal hypertrophy and large pleural effusion #Elevated troponin thought to be due to hypoxia. 2D echo showed denied any chest pain. low suspicion for primary cardiac etiology #Atrial fibrillation: on beta cat. Hold eliquis for thoracentesis. Hold beta cat due to bradycardia. #Type 2 diabetes mellitus: patient hypoglycemic today. Blood sugar was 43 this morning. Will therefore hold NPH insulin. Continue insulin sliding scale. #Right ear lesion: suspicious for skin cancer. Counseled to follow up with dermatology on outpatient basis DVT prophylaxis: hold eliquis in preparation for thoracentesis # Charges/Coding Visit Charges Inpatient E&M: 44903 [facility] Hosp L3
[2024-02-17 15:17] LABS: Bedside Glucose 35 mg/dL (74-106)
[2024-02-17 15:17] LABS: Bedside Glucose 70 mg/dL (74-106)
[2024-02-17 15:17] LABS: Bedside Glucose 37 mg/dL (74-106)
[2024-02-17 15:17] LABS: Bedside Glucose 44 mg/dL (74-106)
[2024-02-17 17:12] LABS: Bedside Glucose 109 mg/dL (74-106)
[2024-02-17 22:51] LABS: Bedside Glucose 83 mg/dL (74-106)
[2024-02-18] VITALS (17 sets, daily range): BP systolic 114–136; BP diastolic 57–63; PULSE 65–84; RESP 18; TEMP 36.2–36.7; O2SAT 84–99; BMI 36.5
[2024-02-18 05:39] LABS: Absolute Lymphocyte Count 1.93 X10^3/uL (0.83-4.51); Absolute Neutrophil Count 6.6 X10^3/uL (2.0-7.7); Basophil# 0.03 X10^3/uL; Basophil% 0.3 % (0-1); Eosinophil# 0.23 X10^3/uL; Eosinophils% 2.3 % (0-5); Hematocrit 37.9 % (40-54); Lymphocyte # 1.93 X10^3/ul (0.83-4.51); Lymphocyte % 19.3 % (19-41); Mean Corp Hgb Conc 31.7 g/dL (32-36); Mean Corpuscular Hgb 29.2 pg (27.0-32.0); Mean Corpuscular Volume 92.2 fL (80-94); Mean Platelet Vol. 10.2 fl (6.2-12.0); Monocyte# 1.14 X10^3/uL; Monocyte% 11.4 % (0-10); NRBC Flagged by Analyzer 0 % (0-5); Neutrophil # 6.61 X10^3/uL (2.7-7.7); Neutrophil % 66.3 % (47-70); Platelet Count 255 K/mm3 (150-450); RBC Distribution Width CV 15.8 % (11.6-14.6); RBC Distribution Width SD 52.7 fl (35.1-43.9); Red Blood Count 4.11 M/mm3 (4.6-6.2)
[2024-02-18 06:12] LABS: Anion Gap 6 (5-15); BUN 35 mg/dL (7-18); BUN/Creat Ratio 23.3 RATIO (10-20); Calcium,Total 8.3 mg/dL (8.5-10.1); Chloride 106 mmol/L (98-107); EST Glomerular Filtration Rate 47 mL/min (>60); Est Glom Filt Rate - Afr Amer 57 mL/min (>60); Estimated Creatinine Clearance 39.97 ml/min; Glucose 49 mg/dL (74-106); Potassium 3.6 mmol/L (3.5-5.1); Sodium Level 142 mmol/L (136-145)
[2024-02-18] MEDS: 0.9% Saline Lock 10 ML Syringe IV ×2 (06:42→11:55)
[2024-02-18] MEDS: Dextrose 10%-Water 250 ML 999 ML IV (06:44)
[2024-02-18 07:56] LABS: Bedside Glucose 107 mg/dL (74-106)
[2024-02-18 07:56] LABS: Bedside Glucose 43 mg/dL (74-106)
--- NOTE | 2024-02-18 10:39 | PN.HOSP_ITS ---
Reason for Visit Reason for Visit: Diagnoses Type 2 diabetes mellitus without complications (02/16/24) Essential (primary) hypertension (02/16/24) Chronic atrial fibrillation, unspecified (02/16/24) Heart failure, unspecified (02/16/24) Pleural effusion, not elsewhere classified (02/16/24) Acute respiratory failure with hypoxia (02/16/24) Acute respiratory failure with hypercapnia (02/16/24) Chronic kidney disease, unspecified (02/16/24) Other specified abnormal findings of blood chemistry (02/16/24) Objective Data Objective Data Vital Signs: Vital Signs Temp Pulse Resp BP Pulse Ox O2 Del Method O2 Flow Rate 97.2 F L 82 18 126/59 H 84 Nasal Cannula 1 02/18/24 06:31 02/18/24 06:31 02/18/24 06:31 02/18/24 06:31 02/18/24 09:22 02/18/24 06:53 02/18/24 09:22 Oxygen Flow Rate (L/min) 1 Oxygen Delivery Method Nasal Cannula Weight: 240 lb 4.862 oz Body Mass Index (BMI) 36.5 Intake & Output: Intake and Output for Last 24 Hours 02/16/24 02/17/24 02/18/24 23:59 23:59 23:59 Intake Total 360 / 480 1370 / 1370 350 / 350 Output Total 3900 / 3900 500 / 500 Balance 360 / -170 -2530 / -2530 -150 / -150 Lab / Micro Data 02/18/24 04:22 02/18/24 04:22 Labs: Laboratory Results - last 24 hr 02/17/24 06:04: POC Glucose 35 L* 02/17/24 06:08: POC Glucose 70 L 02/17/24 06:50: POC Glucose 44 L* 02/17/24 06:53: POC Glucose 37 L* 02/17/24 07:38: POC Glucose 116 H 02/17/24 11:16: POC Glucose 80 02/17/24 16:50: POC Glucose 109 H 02/17/24 21:44: POC Glucose 83 02/18/24 04:22: WBC 10.0, RBC 4.11 L, Hgb 12.0 L, Hct 37.9 L, MCV 92.2, MCH 29.2, MCHC 31.7 L, RDW Std Deviation 52.7 H, RDW Coeff of Almas 15.8 H, Plt Count 255, MPV 10.2, Immature Gran % (Auto) 0.400, Neut % (Auto) 66.3, Lymph % (Auto) 19.3, Charles % (Auto) 11.4 H, Eos % (Auto) 2.3, Baso % (Auto) 0.3, Absolute Neuts (auto) 6.6, Absolute Lymphs (auto) 1.93, Nucleated RBC % 0, Sodium 142, Potassium 3.6, Chloride 106, Carbon Dioxide 30.0, Anion Gap 6, BUN 35 H, C reatinine 1.50 H, Estim Creat Clear Calc 39.97, Est GFR (MDRD) Af Amer 57 L, Est GFR (MDRD) Non-Af 47 L, BUN/Creatinine Ratio 23.3 H, Glucose 49 L, Calcium 8.3 L 02/18/24 06:34: POC Glucose 43 L* 02/18/24 07:37: POC Glucose 107 H Radiography Diagnostic Testing: Radiology Impression Echocardiogram 02/16/24 15:53 Interpretation Summary The estimated ejection fraction is 55-60 %. Asymeteric severe septal Hypertrophy large pleural effusion No change from prior ECHO Ordering Physician: Savi Villareal Performed By: Bentley Ortiz RCS Physical Exam Narrative Seen and examined. Patient admitted with shortness of breath. No chest pain. Has a left moderate to large pleural effusion Physical exam General: Alert, Oriented x3, Cooperative obesity grade 2 BMI 36.5 kg/m? HEENT: Atraumatic, PERRLA, EOMI, Normocephalic Oral: No Gingival or Mucosal Lesions/ Ulcerations Neck: Supple, No JVD, Negative Carotid Bruits Chest wall/Lungs: Air entry diminished below fourth ICS posteriorly on the left hemithorax. Cardiovascular: Regular rate, Regular Rhythm, Normal S1, Normal S2, No M/G/R Abdomen: Bowel Sounds Present, Soft, Non Tender, Non-Distended : No dysuria. No renal angle tenderness. No suprapubic tenderness. Extremities: Bilateral below-knee leg edema, Capillary Refill Less than 3 Seconds Skin: No rashes, No breakdown Musculoskeletal: No Tenderness to Palpation of Joints or Extremities Neurological: Cranial nerves II-XII grossly intact, DTR 2+/4. No acute focal neurological deficit. Psych/Mental Status: Flat affect Assessment & Plan Assessment/Plan (1) HTN (hypertension): (2) Acute exacerbation of chronic heart failure: (3) Pleural effusion, left: PLAN: Plan #Hypoxia due to large left pleural effusion * Patient has a known left pleural effusion and had been scheduled for thoracentesis in 2 weeks. * In PCP office, he was hypoxic with saturation going down to 87% on 3 L of oxygen. BNP was also elevated at 246 and troponin was 103. * There is concern for superimposed acute on chronic heart failure. He is being diuresed with IV Lasix. * will hold on eliquis so patient can have thoracentesis next week before discharge. * Breathing treatment with bronchodilators. * Titrate oxygen to maintain sats >90% * 2D echo:EF is 55-60% with asymmetric severe septal hypertrophy and large pleural effusion 02/17: Plan for left-sided thoracocentesis tomorrow. #Elevated troponin * thought to be due to hypoxia. * 2D echo showed no change from prior echo. Mild global RV systolic dysfunction * denied any chest pain. * low suspicion for primary cardiac etiology #Atrial fibrillation: on beta cat. Hold eliquis for thoracentesis. Hold beta cat due to bradycardia. #Type 2 diabetes mellitus: patient hypoglycemic today. Blood sugar was 43 this morning. hold NPH insulin. Continue insulin sliding scale. 02/17: Glucose 49 today. A1c 8.7%. Patient did not had NPH insulin yesterday. NPH insulin discontinued #Right ear lesion: suspicious for skin cancer. Counseled to follow up with dermatology on outpatient basis DVT prophylaxis: hold eliquis in preparation for thoracentesis Charges/Coding Visit Charges Inpatient E&M: 74672 [facility] Hosp L2
--- NOTE | 2024-02-18 11:00 | NURSING ---
This RN took over care at this time.
[2024-02-18 11:31] LABS: Bedside Glucose 142 mg/dL (74-106)
[2024-02-18] MEDS: Furosemide 40 MG/4 ML Vial IV (11:44)
[2024-02-18] MEDS: Metoprolol Tartrate 25 MG Tablet PO ×2 (11:44→21:59)
[2024-02-18] MEDS: Spironolactone 25 MG Tablet PO (11:44)
[2024-02-18] MEDS: Menthol/Lanolin/Calamine/Znox 113 GM Tube 1 APPLIC TOPICAL ×2 (11:45→21:59)
[2024-02-18] MEDS: Acetaminophen 325 MG Tablet 650 MG PO (11:51)
[2024-02-18 16:55] LABS: Bedside Glucose 204 mg/dL (74-106)
[2024-02-18] MEDS: Insulin Lispro 100 UNIT/ML INSULN.PEN SC (21:59)
[2024-02-18 22:43] LABS: Bedside Glucose 314 mg/dL (74-106)
[2024-02-19] VITALS (13 sets, daily range): BP systolic 108–155; BP diastolic 55–82; PULSE 60–91; RESP 18–20; TEMP 36.2–36.7; O2SAT 91–98; BMI 37.3
[2024-02-19 03:48] LABS: Bedside Glucose 179 mg/dL (74-106)
[2024-02-19 06:01] LABS: Absolute Lymphocyte Count 1.73 X10^3/uL (0.83-4.51); Absolute Neutrophil Count 4.7 X10^3/uL (2.0-7.7); Basophil# 0.02 X10^3/uL; Basophil% 0.3 % (0-1); Eosinophil# 0.21 X10^3/uL; Eosinophils% 2.8 % (0-5); Hematocrit 38.8 % (40-54); Lymphocyte # 1.73 X10^3/ul (0.83-4.51); Lymphocyte % 22.7 % (19-41); Mean Corp Hgb Conc 30.9 g/dL (32-36); Mean Corpuscular Hgb 28.5 pg (27.0-32.0); Mean Corpuscular Volume 92.2 fL (80-94); Mean Platelet Vol. 9.7 fl (6.2-12.0); Monocyte# 0.96 X10^3/uL; Monocyte% 12.6 % (0-10); NRBC Flagged by Analyzer 0 % (0-5); Neutrophil # 4.67 X10^3/uL (2.7-7.7); Neutrophil % 61.1 % (47-70); Platelet Count 234 K/mm3 (150-450); RBC Distribution Width CV 15.7 % (11.6-14.6); RBC Distribution Width SD 52.5 fl (35.1-43.9); Red Blood Count 4.21 M/mm3 (4.6-6.2); White Blood Count 7.6 K/mm3 (4.4-11.0)
[2024-02-19 06:19] LABS: ALB/GLOB Ratio 0.6 RATIO (0.9-2.4); Globulin 3.9 g/dL (2.2-4.2); LDH 153 U/L (87-241); Protein, Total 6.3 g/dL (6.4-8.2)
[2024-02-19 06:46] LABS: Bedside Glucose 143 mg/dL (74-106)
[2024-02-19] MEDS: Spironolactone 25 MG Tablet PO (10:02)
[2024-02-19] MEDS: Furosemide 40 MG/4 ML Vial IV (10:03)
[2024-02-19] MEDS: Menthol/Lanolin/Calamine/Znox 113 GM Tube 1 APPLIC TOPICAL ×2 (10:04→21:18)
[2024-02-19] MEDS: 0.9% Saline Lock 10 ML Syringe IV (10:04)
--- NOTE | 2024-02-19 10:27 | CASEMGMT ---
TCU accepted patient and Arlette will start per-cert. SORAYA met with patient and his . Introduced self and role at [facility]. SW let both patient and his know [facility] TCU can take patient when he is medically ready. SORAYA explained insurance will have to approve as well. Plan: d/c to [facility] TCU pending insurance approval. Marcia Lester [facility]
[2024-02-19 11:23] LABS: Bedside Glucose 199 mg/dL (74-106)
--- NOTE | 2024-02-19 13:38 | FLU_PTH ---
PATIENT: JHONY FORBES LOC: [facility] U#:[id number] AGE/SX: 88/M ROOM: [facility] RE02/16/[address]: Dr. Hernan Martinez MD : [id number] BED: 1 DIS: 02/20/2024 SPEC #: [id number] RECD: 02/19/24 14:11 STATUS: VINCENT REClive #: [id number] MAURICIO: 02/19/24 13:[address]: Savi Villareal DEPT: CYTOLOGY RECD BY: Kumar Maier ENTERED: 02/20/24 10:39 SP TYPE: Fluid OTHR DR: MD Dr. Hannah Banda MD Dr. Prakash Chand, MD Dr. Peter Katsaros, MD Tissues: THORACIC FLUID Procedures: Special Stain Group II Surgery Specimen Level IV Cytospin Fluid HEADER OPERATION: Ultrasound guided thoracentesis fluid PRE-OP DIAGNOSIS: Pleuarl effusion TISSUE SUBMITTED: Thoracentesis fluid for cytology DIAGNOSIS CYTOLOGY Thoracentesis fluid for cytology (cytospin and cellblock): Negative for malignant cells. ALLY/ 02/21/2024 CYTOLOGY STUDY Slides are reviewed. CYTOLOGY GROSS Received is 80 ml of hazy-yellow fluid labeled with the patient's name and and designated per the requisition as Thoracentesis fluid. Submitted for cytology preparation including cell block. Mr 02/20/2024 TC:5 CPT: 88459
--- NOTE | 2024-02-19 13:40 | CASEMGMT ---
Insurance approved patient for [facility] T[facility]. Plan: d/c to [facility] TCU under skilled level of care. Marcia SAHNI
[2024-02-19] MEDS: Lidocaine 2% (20 ml mdv) 20 ML Vial INFILT (13:51)
--- NOTE | 2024-02-19 14:10 | RAD_ITS ---
STUDY: X-RAY CHEST REASON FOR EXAM: Male, 88 years old. Post thoracentesis TECHNIQUE: AP inspiration and expiration views. COMPARISON: Comparison is made with prior study of February 16, 2024. FINDINGS: There is evidence of a 20% left pneumothorax. Left basilar atelectasis. The patient is asymptomatic at this time. Residual pleural parenchymal changes at the right lung base. RAD/Chest Insp/Exp 2 View IMPRESSION: 20% left pneumothorax with left basilar atelectasis. Pleural parenchymal changes at the right lung base. Electronically Signed: Matt Fragoso MD at 14:30 EDT ,
[2024-02-19 14:11] LABS: Cytology, Body Fluid / CSF SEE PATHOLOGY REPORT
--- NOTE | 2024-02-19 14:25 | PRO.PCM_ITS ---
Procedure Report Date of Procedure: 02/19/24 Assessment & Plan Assessment/Plan (1) Pleural effusion, left: PLAN: PROCEDURE: Ultrasound Guided Thoracentesis ORDERING PROVIDER: Dr. Martinez INDICATION: Male, 88 years old. Left pleural effusion. PROVIDER: HILARY Mccauley PROCEDURE: The risks, benefits, and alternatives to the procedure were explained to the patient. The specific risks of bleeding, infection, and pneumothorax requiring chest tube insertion were discussed and accepted. Written informed consent was obtained. The patient was placed in the sitting, upright position. Ultrasonographic evaluation of the bilateral lower pleural spaces was carried out. An adequate pocket was identified in the left lower pleural space.The overlying skin was prepped and draped in sterile fashion. 2% lidocaine was administered subcutaneously for local anesthesia. Under ultrasound guidance, a 5-[place] thoracentesis needle/catheter system was advanced into the left posterior lower pleural fluid collection. 1900 ml of clear yellow colored fluid was drained. 100 mL of this fluid was collected and sent to laboratory for analysis. The catheter was removed, and a sterile dressing was applied. The patient tolerated the procedure well. A chest x-ray was ordered. IMPRESSION: Successful ultrasound-guided thoracentesis of left pleural effusion. Procedures Radiology Radiology US Procedures: [id number] Thoracentesis
--- NOTE | 2024-02-19 15:43 | PN.HOSP_ITS ---
Reason for Visit Reason for Visit: Diagnoses Type 2 diabetes mellitus without complications (02/16/24) Essential (primary) hypertension (02/16/24) Chronic atrial fibrillation, unspecified (02/16/24) Heart failure, unspecified (02/16/24) Pleural effusion, not elsewhere classified (02/16/24) Acute respiratory failure with hypoxia (02/16/24) Acute respiratory failure with hypercapnia (02/16/24) Chronic kidney disease, unspecified (02/16/24) Other specified abnormal findings of blood chemistry (02/16/24) Objective Data Objective Data Vital Signs: Vital Signs Temp Pulse Resp BP Pulse Ox O2 Del Method O2 Flow Rate 97.4 F L 79 18 115/55 L 95 Nasal Cannula 1 02/19/24 12:15 02/19/24 14:14 02/19/24 14:14 02/19/24 14:14 02/19/24 12:15 02/19/24 14:14 02/19/24 14:14 Oxygen Flow Rate (L/min) 1 Oxygen Delivery Method Nasal Cannula Weight: 245 lb 9.519 oz Body Mass Index (BMI) 37.3 Intake & Output: Intake and Output for Last 24 Hours 02/17/24 02/18/24 02/19/24 23:59 23:59 23:59 Intake Total 1370 / 1370 1330 / 1330 Output Total 3900 / 3900 1400 / 1400 2250 / 2250 Balance -2530 / -2530 -70 / -70 -2250 / -2250 Lab / Micro Data 02/19/24 05:19 02/18/24 04:22 Labs: Laboratory Results - last 24 hr 02/18/24 16:33: POC Glucose 204 H 02/18/24 21:56: POC Glucose 314 H 02/19/24 02:56: POC Glucose 179 H 02/19/24 05:19: WBC 7.6, RBC 4.21 L, Hgb 12.0 L, Hct 38.8 L, MCV 92.2, MCH 28.5, MCHC 30.9 L, RDW Std Deviation 52.5 H, RDW Coeff of Almas 15.7 H, Plt Count 234, MPV 9.7, Immature Gran % (Auto) 0.500, Neut % (Auto) 61.1, Lymph % (Auto) 22.7, [place] % (Auto) 12.6 H, Eos % (Auto) 2.8, Baso % (Auto) 0.3, Absolute Neuts (auto) 4.7, Absolute Lymphs (auto) 1.73, Nucleated RBC % 0, Lactate Dehydrogenase 153, Total Protein 6.3 L, Globulin 3.9, Albumin/Globulin Ratio 0.6 L 02/19/24 06:15: POC Glucose 143 H 02/19/24 11:05: POC Glucose 199 H Radiography Diagnostic Testing: Radiology Impression Chest X-Ray 02/19/24 14:10 IMPRESSION: 20% left pneumothorax with left basilar atelectasis. Pleural parenchymal changes at the right lung base. Electronically Signed: Matt Fragoso MD at 14:30 EDT , Physical Exam Narrative Seen and examined. Patient admitted with shortness of breath. No chest pain. Had thoracocentesis in the morning. Intermittent bradycardia for short time but reverts back to normal. Physical exam General: Alert, Oriented x3, Cooperative obesity grade 2 BMI 36.5 kg/m? HEENT: Atraumatic, PERRLA, EOMI, Normocephalic Oral: No Gingival or Mucosal Lesions/ Ulcerations Neck: Supple, No JVD, Negative Carotid Bruits Chest wall/Lungs: Air entry diminished below fourth ICS posteriorly on the left hemithorax. Cardiovascular: Regular rate, Regular Rhythm, Normal S1, Normal S2, No M/G/R Abdomen: Bowel Sounds Present, Soft, Non Tender, Non-Distended : No dysuria. No renal angle tenderness. No suprapubic tenderness. Extremities: Bilateral below-knee leg edema, improved. Capillary Refill Less than 3 Seconds Skin: No rashes, No breakdown Musculoskeletal: No Tenderness to Palpation of Joints or Extremities Neurological: Cranial nerves II-XII grossly intact, DTR 2+/4. No acute focal neurological deficit. Psych/Mental Status: Flat affect Assessment & Plan Assessment/Plan (1) HTN (hypertension): (2) Acute exacerbation of chronic heart failure: (3) Pleural effusion, left: PLAN: Plan #Hypoxia due to large left pleural effusion * Patient has a known left pleural effusion and had been scheduled for thoracentesis in 2 weeks. * In PCP office, he was hypoxic with saturation going down to 87% on 3 L of oxygen. BNP was also elevated at 246 and troponin was 103. * There is concern for superimposed acute on chronic heart failure. He is being diuresed with IV Lasix. * will hold on eliquis so patient can have thoracentesis next week before discharge. * Breathing treatment with bronchodilators. * Titrate oxygen to maintain sats >90% * 2D echo:EF is 55-60% with asymmetric severe septal hypertrophy and large pleural effusion 02/17: Plan for left-sided thoracocentesis tomorrow. 02/18: Patient had thoracocentesis about 1900 ML of clear yellow fluid was drained. Fluid was sent for lab analysis. Repeat chest x-ray showed left pneumothorax present on the left lung base. Repeat chest x-ray ordered after [address] Ho and consult requested in case if she needs chest tube. #Elevated troponin * thought to be due to hypoxia. * 2D echo showed no change from prior echo. Mild global RV systolic dysfunction * denied any chest pain. * low suspicion for primary cardiac etiology #Atrial fibrillation: on beta cat. Hold eliquis for thoracentesis. Hold beta cat due to bradycardia. #Type 2 diabetes mellitus: patient hypoglycemic today. Blood sugar was 43 this morning. hold NPH insulin. Continue insulin sliding scale. 02/17: Glucose 49 today. A1c 8.7%. Patient did not had NPH insulin yesterday. NPH insulin discontinued #Right ear lesion: suspicious for skin cancer. Counseled to follow up with dermatology on outpatient basis DVT prophylaxis: hold eliquis in preparation for thoracentesis Charges/Coding Visit Charges Inpatient E&M: [id number] [facility] Hosp L2
[2024-02-19] MEDS: Insulin Lispro 100 UNIT/ML INSULN.PEN SC ×2 (16:36→21:22)
[2024-02-19 17:07] LABS: Bedside Glucose 280 mg/dL (74-106)
[2024-02-19 17:16] LABS: Appearance/Body Fluid CLEAR; Auto B Fluid Analyzer BKGD Ct COUNTS W/IN LIMITS (W/IN LIMITS); Body Fluid Total Cells Counted 0.182 10^3/ul; Color/Body Fluid YELLOW; Source- Body Fluid THORACENTESIS
[2024-02-19 17:17] LABS: Body Fluid Polynuclear WBC % 1.8 %; Red Cell Count/Body Fluid 13 /mm3; White Blood Count/Body Fluid 0.167 10^3/uL
[2024-02-19 17:18] LABS: Body Fluid Mononuclear WBC % 98.2 %
[2024-02-19 17:19] LABS: Body Fluid Polynuclear WBC # 0.003 10^3/uL
[2024-02-19 17:20] LABS: Body Fluid Mononuclear WBC # 0.164 10^3/uL; Lymphocytes 3 %; Monocytes 97 %; Neutrophil (Segs) 0 %
[2024-02-19 17:21] LABS: Body Fluid QC Type(s) BF4Q
--- NOTE | 2024-02-19 18:00 | RAD_ITS ---
INDICATION: LEFT pneumothorax, s/p thoracocentesis EXAMINATION/TECHNIQUE: X-RAY - XR Chest 2 Views COMPARISON: 02/19/2024 at 2:11 PM FINDINGS: Stable left-sided pneumothorax. Mild loss proximally 20%. Right lung unchanged. Cardiac size stable. RAD/Chest PA and Lateral IMPRESSION: Stable left pneumothorax. Electronically Signed: Luca Stubbs MD at 18:41 EDT ,
[2024-02-19 20:42] LABS: Glucose, Body Fluid 194 mg/dL (40-70); LDH,Body Fluid 59 Units/L (Not Establ.)
[2024-02-19 22:43] LABS: Bedside Glucose 287 mg/dL (74-106)
[2024-02-20 03:00] VITALS: BP 126/104; PULSE 75; RESP 18; TEMP 37; O2SAT 94
[2024-02-20 03:50] VITALS: BMI 37.3
[2024-02-20 06:02] LABS: Bedside Glucose 200 mg/dL (74-106)
[2024-02-20 06:15] LABS: Absolute Lymphocyte Count 1.55 X10^3/uL (0.83-4.51); Absolute Neutrophil Count 6.8 X10^3/uL (2.0-7.7); Basophil# 0.03 X10^3/uL; Basophil% 0.3 % (0-1); Eosinophil# 0.21 X10^3/uL; Eosinophils% 2.2 % (0-5); Hematocrit 38.6 % (40-54); Hemoglobin 12.4 g/dL (13.0-16.5); Lymphocyte # 1.55 X10^3/ul (0.83-4.51); Lymphocyte % 15.9 % (19-41); Mean Corp Hgb Conc 32.1 g/dL (32-36); Mean Corpuscular Hgb 29.3 pg (27.0-32.0); Mean Corpuscular Volume 91.3 fL (80-94); Mean Platelet Vol. 9.9 fl (6.2-12.0); Monocyte# 1.11 X10^3/uL; Monocyte% 11.4 % (0-10); NRBC Flagged by Analyzer 0 % (0-5); Neutrophil # 6.77 X10^3/uL (2.7-7.7); Neutrophil % 69.5 % (47-70); Platelet Count 237 K/mm3 (150-450); RBC Distribution Width CV 15.5 % (11.6-14.6); RBC Distribution Width SD 50.8 fl (35.1-43.9); Red Blood Count 4.23 M/mm3 (4.6-6.2); White Blood Count 9.7 K/mm3 (4.4-11.0)
--- NOTE | 2024-02-20 06:48 | EX.PCM.CON.S ---
Assessment & Plan Assessment/Plan (1) Pneumothorax, left: PLAN: The patient had thoracentesis on the left and resultant pneumothorax. I do not believe he has a pneumothorax from traumatic injury to the lung as the area is all at his lower lobe. I reviewed his old imaging and he has had a chronic effusion for a long time and may have trapped lung. The patient had chest x-ray yesterday for follow-up which was stable I am ordering 1 more chest x-ray today to follow-up and as long as that is stable he may be discharged home and I do not believe a chest tube is warranted. If chest x-ray today shows expansion of the pneumothorax I will come place a percutaneous chest tube. Abimael Ho MD Pager: [facility] [address] [place] [address], [address] [place] [address] Office: HPI Consult Data Date of Consult: 02/20/24 HPI Narrative HPI Narrative: JHONY FORBES, is a 88 M who presents after having thoracentesis with pneumothorax. The patient does not report any shortness of breath or pain. He says he feels comfortable. [facility] Medical History Asymmetric septal hypertrophy History of TIA (transient ischemic attack) (10/2020) ATN (acute tubular necrosis) Acute hepatitis BPH (benign prostatic hyperplasia) Cholecystitis, acute Stroke-like symptoms Aphasia Longstanding persistent atrial fibrillation Chronic diastolic (congestive) heart failure Colon cancer Secondary pulmonary arterial hypertension New onset atrial fibrillation (12/24/18) Type 2 diabetes mellitus Home Medications ?Medication ?Instructions ?Recorded ?Last Taken ?Type apixaban 2.5 mg tablet 2.5 mg PO BID BLOOD THINNER 10/16/20 02/16/24 History amlodipine 2.5 mg tablet 2.5 mg PO DAILY BP #90 tabs 07/31/23 Unknown Rx glimepiride 4 mg tablet 4 mg PO BID diabetes 10/05/23 02/16/24 History furosemide 40 mg tablet (Lasix) 40 mg PO DAILY diuertic #90 tabs 11/10/23 02/15/24 Rx spironolactone 25 mg tablet 25 mg PO DAILY #30 tabs 11/10/23 02/15/24 Rx ammonium lactate 12 % lotion 1 applic topical QDAY rough/scaly 02/07/24 02/16/24 History skin insulin NPH isoph U-100 human 100 15 unit subcut BID 02/07/24 Unknown History unit/mL (3 mL) subcutaneous pen (Humulin N NPH U-100 Insulin KwikPen) metoprolol tartrate 25 mg tablet 25 mg PO BID heart 02/07/24 02/16/24 History efawacdq-oi-rbglh 300 mcg-K 60 1 tab PO DAILY SUPPLEMENT 02/07/24 02/16/24 History mcg-lycop 600 mcg-lutein 300 mcg tablet nitroglycerin 0.4 mg sublingual 0.4 mg sublingual Q5M PRN chest 02/16/24 Unknown History tablet pain Allergy/AdvReac Type Severity Reaction Status Date / Time dabigatran etexilate (From Allergy skin of Verified 02/17/24 14:57 Pradaxa) legs peeled/itching lisinopril Allergy Angioedema Verified 02/17/24 14:57 meloxicam (From Mobic) Allergy Unknown Verified 02/17/24 14:57 rivaroxaban (From Xarelto) AdvReac skin rash Verified 02/17/24 14:57 sulfamethoxazole (From AdvReac high sugars Verified 02/17/24 14:57 Bactrim) trimethoprim (From Bactrim) AdvReac high sugars Verified 02/17/24 14:57 Surgical History H/O local excision of skin lesion (10/26/21) History of cardioversion (2013) History of partial colectomy Social History household members: spouse Smoking Status: Former smoker how long ago did patient quit smokin years ago alcohol intake: never substance use type: does not use caffeine: Yes Type: coffee Number of servings: 3 ROS ROS Narrative General: Denies fever/chills HENT: Sometimes stuffy nose EYES: Denies changes in vision Resp: slight cough, increased SOB [id number] with orthopnea Cardiac: Some chest wall tenderness GI: Denies abdominal pain at present, denies changes in bowel, denies nausea/vomiting : urinates frequently at night Extremity: increasing LE swelling MSK: Generalized weakness Neuro: Denies any numbness/tingling Heme: Denies any bleeding or bruising 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 Psychiatric: No complaints voiced Constitutional Constitutional: Denies anorexia Physical Exam Const alert and oriented x3 HEENT normocephalic Eyes PERRL Chest inspection of chest normal Resp normal respiratory effort Cardio Rate: regular rate Rhythm: regular rhythm GI normal to inspection, nondistended, normoactive bowel sounds Lab / Micro Data 02/20/24 05:26 02/18/24 04:22 Labs: Laboratory Results - last 24 hr 02/17/24 : Fluid Glucose Cancelled, Fluid Total Protein Cancelled, Fluid LDH Cancelled 02/19/24 11:05: POC Glucose 199 H 02/19/24 14:10: Fluid Source THORACENTESIS, Fluid Color YELLOW, Fluid Appearance CLEAR, Fluid WBC 0.167, Fluid RBC 13, Fluid Tot Cell Count 0.182, Fld Polynuclear WBCs # 0.003, Fld Polynuclear WBCs % 1.8, Fluid Mononuclear WBCs 0.164, Fld Mononuclear WBCs % 98.2, Fluid Neutrophils 0, Fluid Lymphocytes 3, Fluid Monocytes 97, Fluid Plasma Cells COOK FISH EGGS, Fluid Macrophages COOK FISH EGGS, Fld Mesothelial Cells COOK FISH EGGS, Fluid Other Cells COOK FISH EGGS, Fl Pathologist Comment May follow, Fluid Comment 2 SEE COMMENT 02/19/24 14:40: Fluid Glucose 194 H, Fluid LDH 59 02/19/24 16:34: POC Glucose 280 H 02/19/24 21:21: POC Glucose 287 H 02/20/24 05:26: WBC 9.7, RBC 4.23 L, Hgb 12.4 L, Hct 38.6 L, MCV 91.3, MCH 29.3, MCHC 32.1, RDW Std Deviation 50.8 H, RDW Coeff of Almas 15.5 H, Plt Count 237, MPV 9.9, Immature Gran % (Auto) 0.700, Neut % (Auto) 69.5, Lymph % (Auto) 15.9 L, Smith % (Auto) 11.4 H, Eos % (Auto) 2.2, Baso % (Auto) 0.3, Absolute Neuts (auto) 6.8, Absolute Lymphs (auto) 1.55, Nucleated RBC % 0 02/20/24 05:44: POC Glucose 200 H Imaging Radiology Impression Chest X-Ray 02/19/24 14:10 IMPRESSION: 20% left pneumothorax with left basilar atelectasis. Pleural parenchymal changes at the right lung base. Electronically Signed: Matt Fragoso MD at 14:30 EDT , Chest X-Ray 02/19/24 18:00 IMPRESSION: Stable left pneumothorax. Electronically Signed: Luca Stubbs MD at 18:41 EDT ,
[2024-02-20 07:32] LABS: Anion Gap 3 (5-15); BUN 33 mg/dL (7-18); BUN/Creat Ratio 24.1 RATIO (10-20); Calcium,Total 8.3 mg/dL (8.5-10.1); Chloride 103 mmol/L (98-107); Creatinine, Serum 1.37 mg/dL (0.70-1.30); EST Glomerular Filtration Rate 52 mL/min (>60); Est Glom Filt Rate - Afr Amer 63 mL/min (>60); Estimated Creatinine Clearance 44.22 ml/min; Glucose 211 mg/dL (74-106); Magnesium 1.8 mg/dL (1.6-2.6); Potassium 4.1 mmol/L (3.5-5.1); Sodium Level 138 mmol/L (136-145)
[2024-02-20 07:40] VITALS: O2SAT 96
[2024-02-20 08:00] VITALS: O2SAT 95
[2024-02-20 08:45] VITALS: O2SAT 85
--- NOTE | 2024-02-20 08:45 | RAD_ITS ---
STUDY: X-RAY CHEST REASON FOR EXAM: Male, 88 years old. Pneumothorax TECHNIQUE: Single AP portable view of the chest. COMPARISON: Comparison is made with prior study dated February 19, 2024 at 6:00 PM. FINDINGS: Stable left-sided 20% pneumothorax. Stable bibasilar atelectasis and/or infiltrates with blunting of both costophrenic angles. There is borderline cardiomegaly. Normal mediastinum and dmitry. Normal visualized pulmonary arteries. There is atherosclerotic calcification of the aortic arch with tortuosity. There are diffuse degenerative changes of the visualized thoracic spine. Normal visualized ribs, clavicles, and shoulders. There is no demonstrated abnormality of the visualized soft tissue structures of the upper abdomen. RAD/Chest 1 View (Portable) IMPRESSION: Stable examination. Electronically Signed: Matt Fragoso MD at 9:14 EDT ,
[2024-02-20 08:55] VITALS: BP 123/60; PULSE 89; RESP 18; TEMP 36.4; O2SAT 94
[2024-02-20] MEDS: 0.9% Saline Lock 10 ML Syringe IV (08:56)
[2024-02-20] MEDS: Furosemide 40 MG/4 ML Vial IV (08:56)
[2024-02-20] MEDS: Menthol/Lanolin/Calamine/Znox 113 GM Tube 1 APPLIC TOPICAL (08:57)
[2024-02-20] MEDS: Spironolactone 25 MG Tablet PO (08:57)
--- NOTE | 2024-02-20 09:44 | WOUNDNOTE ---
Was asked to see patient per nursing for legs. removed the GER wraps. there is moderate edema noted. no open wounds noted. there is a calloused area to the right medial heel. was able to remove some of the callous. no open area noted under the callous. patient had been going to the wound center and was released since wound was healed. washed legs and feet with soap and water. pat dry. applied aloe vesta to the dry heels and applied tubigrips. pt tolerated well.
--- NOTE | 2024-02-20 11:07 | TREXTCAR_ITS ---
Diet Diet Order/Speech Therapy: 02/16/24 15:53 Diet: Cardiac - Heart Healthy Food consistency:: Regular Liquid Consistency:: Regular/Thin Dietary Modifications:: Consistent Carbohydrate Fluid restriction:: 1750 mL Routine Orders/Code Status Suppository Type: Dulcolax 10mg Suppository Frequency: Daily PRN Wound(s) coccyx: Wound Type: Pressure Injury right heel: Wound Type: Pressure Injury Scalp: Wound Type: scattered scabs Rt Ear: Wound Type: Abrasion left posterior back: Wound Type: Puncture Therapies Extremity Affected:: Bilateral Lower Physical Therapy: Eval and Treat Occupational Therapy: Eval and Treat Speech Therapy: Eval and Treat Problem/Diagnosis (1) Pneumothorax, left: Status: Acute Code(s): J93.9 - Pneumothorax, unspecified Plan #Hypoxia due to large left pleural effusion * Patient has a known left pleural effusion and had been scheduled for thoracentesis in 2 weeks. * In PCP office, he was hypoxic with saturation going down to 87% on 3 L of oxygen. BNP was also elevated at 246 and troponin was 103. * There is concern for superimposed acute on chronic heart failure. He is being diuresed with IV Lasix. * will hold on eliquis so patient can have thoracentesis next week before discharge. * Breathing treatment with bronchodilators. * Titrate oxygen to maintain sats >90% * 2D echo:EF is 55-60% with asymmetric severe septal hypertrophy and large pleural effusion 02/17: Plan for left-sided thoracocentesis tomorrow. 02/18: Patient had thoracocentesis about 1900 ML of clear yellow fluid was drained. Fluid was sent for lab analysis. Repeat chest x-ray showed left pneumothorax present on the left lung base. Repeat chest x-ray ordered after [address] Ho and consult requested in case if she needs chest tube. #Elevated troponin * thought to be due to hypoxia. * 2D echo showed no change from prior echo. Mild global RV systolic dysfunction * denied any chest pain. * low suspicion for primary cardiac etiology #Atrial fibrillation: on beta cat. Hold eliquis for thoracentesis. Hold beta cat due to bradycardia. #Type 2 diabetes mellitus: patient hypoglycemic today. Blood sugar was 43 this morning. hold NPH insulin. Continue insulin sliding scale. 02/17: Glucose 49 today. A1c 8.7%. Patient did not had NPH insulin yesterday. NPH insulin discontinued #Right ear lesion: suspicious for skin cancer. Counseled to follow up with dermatology on outpatient basis DVT prophylaxis: hold eliquis in preparation for thoracentesis Allergies/Procedures Done in Hospital Allergies dabigatran etexilate (From Pradaxa) Allergy (Verified 02/17/24 14:57) skin of legs peeled/itching lisinopril Allergy (Verified 02/17/24 14:57) Angioedema meloxicam (From Mobic) Allergy (Verified 02/17/24 14:57) Unknown rivaroxaban (From Xarelto) Adverse Reaction (Verified 02/17/24 14:57) skin rash sulfamethoxazole (From Bactrim) Adverse Reaction (Verified 02/17/24 14:57) high sugars trimethoprim (From Bactrim) Adverse Reaction (Verified 02/17/24 14:57) high sugars Type of Care/Length of Stay Estimated LOS: Convalescent Care Less Than 30 days Type of Care Needed: Skilled Rehab Potential: Good Prognosis: Good Additional Orders/Day of Discharge H&P will serve as current which was dated: 02/20/24 Day of Discharge: 02/20/24 Dietary and Speech Recommendations Dietitian Recommendations/Changes: Change diet to Consistent CHO / Cardiac diet w/ fluid restriction prn Provide diet education prior to d/c if desired by pt at time of follow up Discharge Plan Admission Admit Date/Time: 02/16/24 15:38 Primary Reason for Your Visit: Hypoxia. Right large pleural effusion. Right chronic trapped lung syndrom Attending Provider: Hernan Martinez Primary Care Provider: Alpesh Oconnell Consulting Providers: Savi Villareal; Hannah Garcia; Abimael Ho Discharge Orders/Prescriptions Prescriptions: New acetaminophen 325 mg Tablet 650 mg PO Q6H PRN PRN (Reason: Pain 1-10 Or Fever >100.7) Qty: 0 0RF insulin lispro [Humalog KwikPen Insulin] 100 unit/mL Insulin Pen See Protocol subcut ACHS Qty: 0 0RF Protocol: 2. Sliding Scale Insulin Low-Med Dosing Condition: 150-209 mg/dl = 1 unit Condition: 210-269 mg/dl = 2 units Condition: 270-329 mg/dl = 3 units Condition: 330-389 mg/dl = 4 units Condition: 390-449 mg/dl = 5 units Condition: Greater than 449 call physician Protocol Text: Suggested for: - Patients on Total Daily Insulin Dose of 28-36 units - Average body habitus patients LOW MEDIUM DOSING ALGORITHM sennosides-docusate sodium [Stimulant Laxative Plus] 8.6-50 mg Tablet 2 tab PO BID PRN PRN (Reason: Constipation) Qty: 0 0RF Continued spironolactone 25 mg tablet 25 mg PO DAILY Qty: 30 11RF metoprolol tartrate 25 mg tablet 25 mg PO BID ammonium lactate 12 % lotion 1 applic topical QDAY glimepiride 4 mg tablet 4 mg PO BID apixaban 2.5 MG tablet 2.5 mg PO BID ox-[id number]-ilwos-[id number]-ayvgavr-yvbuot [id number] mcg tablet 1 tab PO DAILY nitroglycerin 0.4 mg tablet, sublingual 0.4 mg sublingual Q5M PRN (Reason: chest pain) amlodipine 2.5 mg tablet 2.5 mg PO DAILY Qty: 90 3RF Changed furosemide [Lasix] 40 mg tablet 40 mg PO BIDCM Qty: 90 3RF Rx Instructions: Hold if creatinine jumps more than 1.6 Humulin N NPH Insulin KwikPen 100 unit/mL (3 mL) insulin pen 10 unit subcut BID Qty: 15 0RF Rx Instructions: Holds if BS < 130 Referrals / Follow Up: Abimael Ho MD [Med Staff - Active Staff] - Within 2 Weeks (For trapped right lung. Right large pleural effusion) Alpesh Oconnell MD [Primary Care Provider] - Disposition Disposition (needs filled in before D/C Order can be placed): [facility]
--- NOTE | 2024-02-20 11:15 | DS.PCM_ITS ---
Providers Date of Admission: 02/16/24 Date of Discharge: 02/20/24 Primary Care Physician: Dr. Alpesh Oconnell MD Consultations 02/17/24 14:41 Consult: Onc/Wound/hand binder cutter Routine Comment: Reason for Consult:: ble 02/19/24 14:44 Consult: General Surgery Routine Consulting Provider: Abimael Ho Reason for Consult: left pneumothorax EMERGENT Consult: No MD Notified: Yes Date Notified: 02/19/24 Time Notified: 14:44 Method of Notification: Verbal Reason For Visit: HYPOXIA, PLEURAL EFFUSION, ELEVATED TROPONIN Diagnosis Discharge Diagnosis (1) Pneumothorax, left: Status: Acute Code(s): J93.9 - Pneumothorax, unspecified Plan 88-year-old male was admitted with hypoxia and shortness of breath. At PCP office, also fell for no was put on oxygen and sent to ED. Patient has known history of left large pleural effusion diagnosed in spinner concrete pipe office. Never been drained. Eliquis on hold. #Hypoxia due to large left pleural effusion * Patient has a known left pleural effusion and had been scheduled for thoracentesis in 2 weeks. * In PCP office, he was hypoxic with saturation going down to 87% on 3 L of oxygen. BNP was also elevated at 246 and troponin was 103. * There is concern for superimposed acute on chronic heart failure. He is being diuresed with IV Lasix. * will hold on eliquis so patient can have thoracentesis next week before discharge. * Breathing treatment with bronchodilators. * Titrate oxygen to maintain sats >90% * 2D echo:EF is 55-60% with asymmetric severe septal hypertrophy and large pleural effusion 02/17: Plan for left-sided thoracocentesis tomorrow. 02/18: Patient had thoracocentesis about 1900 ML of clear yellow fluid was drained. Fluid was sent for lab analysis. Repeat chest x-ray showed left pneumothorax present on the left lung base. Repeat chest x-ray ordered after [address] Ho and consult requested in case if she needs chest tube. 02/19: Repeat chest x-ray at 6 PM and then in the morning does not show expansion of left pneumothorax. It is believed that patient has chronic left trapped lung and it showed up after left thoracocentesis. Does not seem iatrogenic pneumothorax. Advised to follow-up in surgery clinic after 2 weeks. Continue incentive spirometry #Elevated troponin * thought to be due to hypoxia, increased cardiac demand. * 2D echo showed no change from prior echo. Mild global RV systolic dysfunction * denied any chest pain. * No primary cardiac event/AL #Atrial fibrillation: on beta cat. Hold eliquis for thoracentesis. Hold beta cat due to bradycardia. 02/19: Eliquis resumed #Type 2 diabetes mellitus: patient hypoglycemic today. Blood sugar was 43 this morning. hold NPH insulin. Continue insulin sliding scale. 02/17: Glucose 49 today. A1c 8.7%. Patient did not had NPH insulin yesterday. NPH insulin discontinued 02/19 glucose recovered in 200. Continue NPH 10 units twice daily #Right ear lesion: suspicious for skin cancer. Counseled to follow up with dermatology on outpatient basis DVT prophylaxis: hold eliquis in preparation for thoracentesis Discharge medication reconciliation done. Discharge follow-up instructions completed. Discharge process discussed with the patient and all questions were answered to patient's satisfaction. Follow with PCP in 1 to 2 weeks Total time spent, exact 35 minutes on discharge meds reconciliation, examination, coordination of care with nurses and ancillary staff, review of imaging and blood test and discussion with the patient on follow-up instructions. Medications at Discharge Home Medications apixaban 2.5 mg tablet 2.5 mg PO BID BLOOD THINNER 10/16/20 amlodipine 2.5 mg tablet 2.5 mg PO DAILY BP #90 tabs 07/31/23 glimepiride 4 mg tablet 4 mg PO BID diabetes 10/05/23 spironolactone 25 mg tablet 25 mg PO DAILY #30 tabs 11/10/23 ammonium lactate 12 % lotion 1 applic topical QDAY rough/scaly skin 02/07/24 metoprolol tartrate 25 mg tablet 25 mg PO BID heart 02/07/24 zfnhamcp-gc-ypnsr 300 mcg-K 60 mcg-lycop 600 mcg-lutein 300 mcg tablet 1 tab PO DAILY SUPPLEMENT 02/07/24 nitroglycerin 0.4 mg sublingual tablet 0.4 mg sublingual Q5M PRN chest pain 02/16/24 acetaminophen 325 mg tablet 650 mg (2 x 325 mg) PO Q6H PRN PRN Pain 1-10 Or Fever >100.7 #0 tabs 02/20/24 furosemide 40 mg tablet (Lasix) 40 mg PO BIDCM diuertic #90 tabs 02/20/24 insulin NPH isoph U-100 human 100 unit/mL (3 mL) subcutaneous pen (Humulin N NPH U-100 Insulin KwikPen) 10 unit (0.1 mL) subcut BID #15 mL 02/20/24 insulin lispro 100 unit/mL subcutaneous pen (Humalog KwikPen (U-100) Insulin) See Protocol subcut ACHS #0 mL 02/20/24 sennosides 8.6 mg-docusate sodium 50 mg tablet (Stimulant Laxative Plus) 2 tab PO BID PRN PRN Constipation #0 tabs 02/20/24 Physical Exam Narrative Seen and examined. Shortness of breath is improved. No chest pain. On 2 L of oxygen. Had thoracocentesis in the morning 02/19/2024. No change in hypoxia. No increased shortness of breath or dyspnea. Chest x-ray reviewed Physical exam General: Alert, Oriented x3, Cooperative obesity grade 2 BMI 36.5 kg/m? HEENT: Atraumatic, PERRLA, EOMI, Normocephalic Oral: No Gingival or Mucosal Lesions/ Ulcerations Neck: Supple, No JVD, Negative Carotid Bruits Chest wall/Lungs: Air entry slightly improved on left side but no significant increase after thoracocentesis. No crepitations. Cardiovascular: Regular rate, Regular Rhythm, Normal S1, Normal S2, No M/G/R Abdomen: Bowel Sounds Present, Soft, Non Tender, Non-Distended : No dysuria. No renal angle tenderness. No suprapubic tenderness. Extremities: Bilateral below-knee leg edema, improved. Capillary Refill Less than 3 Seconds Skin: No rashes, No breakdown Musculoskeletal: No Tenderness to Palpation of Joints or Extremities Neurological: Cranial nerves II-XII grossly intact, DTR 2+/4. No acute focal neurological deficit. Psych/Mental Status: Flat affect Weight / BMI Weight Weight: 245 lb 2.464 oz Body Mass Index (BMI) 37.3 ABG / Lab / Microbiology Data 02/20/24 05:26 02/20/24 05:26 Laboratory: Laboratory Results - last 24 hr 02/17/24 : Fluid Glucose Cancelled, Fluid Total Protein Cancelled, Fluid LDH Cancelled 02/19/24 11:05: POC Glucose 199 H 02/19/24 14:10: Fluid Source THORACENTESIS, Fluid Color YELLOW, Fluid Appearance CLEAR, Fluid WBC 0.167, Fluid RBC 13, Fluid Tot Cell Count 0.182, Fld Polynuclear WBCs # 0.003, Fld Polynuclear WBCs % 1.8, Fluid Mononuclear WBCs 0.164, Fld Mononuclear WBCs % 98.2, Fluid Neutrophils 0, Fluid Lymphocytes 3, Fluid Monocytes 97, Fluid Plasma Cells IMAGING AIDE, Fluid Macrophages IMAGING AIDE, Fld Mesothelial Cells IMAGING AIDE, Fluid Other Cells IMAGING AIDE, Fl Pathologist Comment May follow, Fluid Comment 2 SEE COMMENT 02/19/24 14:40: Fluid Glucose 194 H, Fluid LDH 59 02/19/24 16:34: POC Glucose 280 H 02/19/24 21:21: POC Glucose 287 H 02/20/24 05:26: WBC 9.7, RBC 4.23 L, Hgb 12.4 L, Hct 38.6 L, MCV 91.3, MCH 29.3, MCHC 32.1, RDW Std Deviation 50.8 H, RDW Coeff of Almas 15.5 H, Plt Count 237, MPV 9.9, Immature Gran % (Auto) 0.700, Neut % (Auto) 69.5, Lymph % (Auto) 15.9 L, M quinten % (Auto) 11.4 H, Eos % (Auto) 2.2, Baso % (Auto) 0.3, Absolute Neuts (auto) 6.8, Absolute Lymphs (auto) 1.55, Nucleated RBC % 0, Sodium 138, Potassium 4.1, Chloride 103, Carbon Dioxide 32.0, Anion Gap 3 L, BUN 33 H, Creatinine 1.37 H, Estim Creat Clear Calc 44.22, Est GFR (MDRD) Af Amer 63, Est GFR (MDRD) Non-Af 52 L, BUN/Creatinine Ratio 24.1 H, Glucose 211 H, Calcium 8.3 L, Magnesium 1.8 02/20/24 05:44: POC Glucose 200 H Microbiology: Microbiology 02/19/24 14:10 Fluid - Pleural (Lung) Gram Stain - Final 02/19/24 14:10 Fluid - Pleural (Lung) Body Fluid Culture - Preliminary No growth-Final to follow Radiography Diagnostic Testing: Radiology Impression Chest X-Ray 02/19/24 14:10 IMPRESSION: 20% left pneumothorax with left basilar atelectasis. Pleural parenchymal changes at the right lung base. Electronically Signed: Matt Fragoso MD at 14:30 EDT , Chest X-Ray 02/19/24 18:00 IMPRESSION: Stable left pneumothorax. Electronically Signed: Luca Stubbs MD at 18:41 EDT , Chest X-Ray 02/20/24 08:45 IMPRESSION: Stable examination. Electronically Signed: Matt Fragoso MD at 9:14 EDT , Meaningful Use Info Meaningful Use Meaningful Use Diagnoses (Choose all that apply): None applicable Ischemic Stroke Statin Dosing Therapy Reference: STATIN DOSE THERAPY REFERENCE: * Patients > 75 years receive moderate or high dose statin therapy. * Patients 75 years or YOUNGER should receive HIGH intensity statin dose unless contraindicated. You will be required to document reason for non-treatment if statin daily dose does not meet guidelines. HIGH DOSE STATIN THERAPY DAILY Atorvastatin > than or = to 40 mg Rosuvastatin > than or = to 20 mg Amlodipine + Atorvastatin > than or = to 2.5/40 mg Ezetimibe + Simvastatin 10/80 mg Simvastatin 80mg Discharge Plan Admission Admit Date/Time: 02/16/24 15:38 Primary Reason for Your Visit: Hypoxia. Right large pleural effusion. Right chronic trapped lung syndrom Attending Provider: Hernan Martinez Primary Care Provider: Alpesh Oconnell Consulting Providers: Savi Villareal; Hannah Garcia; Abimael Ho Discharge Orders/Prescriptions Prescriptions: New acetaminophen 325 mg Tablet 650 mg PO Q6H PRN PRN (Reason: Pain 1-10 Or Fever >100.7) Qty: 0 0RF insulin lispro [Humalog KwikPen Insulin] 100 unit/mL Insulin Pen See Protocol subcut ACHS Qty: 0 0RF Protocol: 2. Sliding Scale Insulin Low-Med Dosing Condition: 150-209 mg/dl = 1 unit Condition: 210-269 mg/dl = 2 units Condition: 270-329 mg/dl = 3 units Condition: 330-389 mg/dl = 4 units Condition: 390-449 mg/dl = 5 units Condition: Greater than 449 call physician Protocol Text: Suggested for: - Patients on Total Daily Insulin Dose of 28-36 units - Average body habitus patients LOW MEDIUM DOSING ALGORITHM sennosides-docusate sodium [Stimulant Laxative Plus] 8.6-50 mg Tablet 2 tab PO BID PRN PRN (Reason: Constipation) Qty: 0 0RF Continued spironolactone 25 mg tablet 25 mg PO DAILY Qty: 30 11RF metoprolol tartrate 25 mg tablet 25 mg PO BID ammonium lactate 12 % lotion 1 applic topical QDAY glimepiride 4 mg tablet 4 mg PO BID apixaban 2.5 MG tablet 2.5 mg PO BID qr-vpa-ndlxe-[id number]-utyxdkj-jkauen [id number] mcg tablet 1 tab PO DAILY nitroglycerin 0.4 mg tablet, sublingual 0.4 mg sublingual Q5M PRN (Reason: chest pain) amlodipine 2.5 mg tablet 2.5 mg PO DAILY Qty: 90 3RF Changed furosemide [Lasix] 40 mg tablet 40 mg PO BIDCM Qty: 90 3RF Rx Instructions: Hold if creatinine jumps more than 1.6 Humulin N NPH Insulin KwikPen 100 unit/mL (3 mL) insulin pen 10 unit subcut BID Qty: 15 0RF Rx Instructions: Holds if BS < 130 Referrals / Follow Up: Abimael Ho MD [Med Staff - Active Staff] - Within 2 Weeks (For trapped right lung. Right large pleural effusion) Alpesh Oconnell MD [Primary Care Provider] - Disposition Disposition (needs filled in before D/C Order can be placed): Care Home Facility Charges/Coding Visit Charges Inpatient E&M: 88399 Disch Hosp >30min
[2024-02-20] MEDS: Insulin Lispro 100 UNIT/ML INSULN.PEN SC (11:19)
--- NOTE | 2024-02-20 11:28 | CASEMGMT ---
Patient is ready for discharge to [facility]. SW notified Arlette that patient will be coming today. Plan: d/c to [facility] under skilled level of care. Marcia SAHNI
--- NOTE | 2024-02-20 11:30 | PHA.DC.MR.R ---
Pharmacy [place] Med Reconciliation Pharmacy Service has performed discharge medication reconciliation for this patient. The patient's discharge medication list was reviewed for discrepancies and discrepancies were resolved. Medications at Discharge Home Medications apixaban 2.5 mg tablet 2.5 mg PO BID BLOOD THINNER 10/16/20 amlodipine 2.5 mg tablet 2.5 mg PO DAILY BP #90 tabs 07/31/23 glimepiride 4 mg tablet 4 mg PO BID diabetes 10/05/23 spironolactone 25 mg tablet 25 mg PO DAILY water pill #30 tabs 11/10/23 ammonium lactate 12 % lotion 1 applic topical QDAY rough/scaly skin 02/07/24 metoprolol tartrate 25 mg tablet 25 mg PO BID heart 02/07/24 [id number] 300 mcg-K 60 mcg-lycop 600 mcg-lutein 300 mcg tablet 1 tab PO DAILY SUPPLEMENT 02/07/24 nitroglycerin 0.4 mg sublingual tablet 0.4 mg sublingual Q5M PRN chest pain 02/16/24 acetaminophen 325 mg tablet 650 mg (2 x 325 mg) PO Q6H PRN PRN Pain 1-10 Or Fever >100.7 #0 tabs 02/20/24 furosemide 40 mg tablet (Lasix) 40 mg PO BIDCM diuertic #90 tabs 02/20/24 insulin NPH isoph U-100 human 100 unit/mL (3 mL) subcutaneous pen (Humulin N NPH U-100 Insulin KwikPen) 10 unit (0.1 mL) subcut BID #15 mL 02/20/24 insulin lispro 100 unit/mL subcutaneous pen (Humalog KwikPen (U-100) Insulin) See Protocol subcut ACHS #0 mL 02/20/24 sennosides 8.6 mg-docusate sodium 50 mg tablet (Stimulant Laxative Plus) 2 tab PO BID PRN PRN Constipation #0 tabs 02/20/24
[2024-02-20 11:42] LABS: Bedside Glucose 315 mg/dL (74-106)
--- NOTE | 2024-02-20 12:08 | NURSING ---
Called report to Adri DORAN on TCU
--- NOTE | 2024-02-20 13:12 | CHAPLAIN ---
Type of Pastoral Visit _x__ Initial Visit ___ Follow-up Visit ___ On-call Visit ___ General Patient Visit ___ Spiritual Assessment ___ Family Conference ___ Bereavement ___ Rapid Response ___ Code Blue ___ Other (describe below) Pastoral Care Referral From _x__ Patient ___ Family ___ Nurse ___ Physician ___ Corporate Representative ___ Rn Social Work ___ Other (describe below) Sacrament/Intervention _x__ Active listening ___ Anointing ___ Anabaptism ___ Bereavement ___ Communion _x__ Bekah exploration ___ _x__ Life review _x__ Prayer ___ Reconciliation ___ Sacrament of Sick _x__ Supportive presence ___ Wedding ___ Other (describe below) Pastoral Comments patient and spouse are in the room waiting with a cart of his belongings to transfer to Rehab; pt speaks of not wanting to be in the hospital but hoping that therapy will be a good encounter and that he can go home soon; pt admits difficulty in being in a setting like the hospital so explored ideas of how to overcome boredom or anxiety while a patient; pt admits that he has given up on the Orthodoxy since his first and people didn't show care to him following that; however patient agreed that a prayer might be helpful now; pt admits some apprehension about going to rehab and how that will be: assurances of good care and ongoing support given
[2024-02-20 13:30] VITALS: BP 115/59; PULSE 85; RESP 18; TEMP 36.7; O2SAT 95
[2024-02-20 14:56] LABS: Pathologist Comment/Body Fluid Reviewed
[2024-02-22 11:09] LABS: pH, Body Fluid 11254 7.4 (Not Estab.)
== END 2024-02-20 13:48 | disposition skilled nursing facility (03) | DRG 186 ==
LOC: ED 14:43 → PCU 15:25
PROVIDERS: Family Medicine; Nurse Practitioner Family; Student in an Organized Health Care Education/Training Program; Admitting Provider Internal Medicine; Emergency Provider Emergency Medicine; PCP Internal Medicine; Visit Provider Internal Medicine
DX: J90 Pleural effusion, not elsewhere classified (principal); I50.33 Acute on chronic diastolic (congestive) heart failure; Z68.41 Body mass index [BMI] 40.0-44.9, adult; I13.0 Hypertensive heart and chronic kidney disease with heart failure and stage 1 through stage 4 chronic kidney disease, or unspecified chronic kidney disease; I48.20 Chronic atrial fibrillation, unspecified; J95.811 Postprocedural pneumothorax; E11.649 Type 2 diabetes mellitus with hypoglycemia without coma; N18.32 Chronic kidney disease, stage 3b; C44.40 Unspecified malignant neoplasm of skin of scalp and neck; E11.22 Type 2 diabetes mellitus with diabetic chronic kidney disease; E66.01 Morbid (severe) obesity due to excess calories; Z79.4 Long term (current) use of insulin; R00.1 Bradycardia, unspecified; R79.89 Other specified abnormal findings of blood chemistry; Z79.01 Long term (current) use of anticoagulants; Z87.891 Personal history of nicotine dependence; Z86.73 Personal history of transient ischemic attack (TIA), and cerebral infarction without residual deficits
CPT/HCPCS: 32555; 36415; 71045; 71046; 80048; 80053; 80061; 82945; 82962; 83036; 83615; 83735; 83880; 83986; 84156; 84157; 84443; 84484; 85025; 85027; 85610; 87070; 87075; 87205; 88108; 88305; 88313; 89050; 93005; 93306; 94668; 97110; 97162; 97166; 99252; 99285; Q9957; A4216; C8929; G0463; J1940

== ENCOUNTER 2024-02-20 14:00 | Inpatient (IN) | payer MEDICARE, SELFPAY ==
[2024-02-20 14:34] VITALS: BP 131/59; PULSE 79; RESP 20; TEMP 36.4; O2SAT 98
[2024-02-20 15:16] VITALS: BMI 37.7
[2024-02-20 15:36] VITALS: BMI 37.7
[2024-02-20 17:10] LABS: Bedside Glucose 351 mg/dL (74-106)
[2024-02-20 18:04] VITALS: BP 119/60; PULSE 85
[2024-02-20] MEDS: Furosemide 40 MG Tablet PO (18:07)
[2024-02-20] MEDS: Glimepiride 4 MG Tablet PO (18:07)
--- NOTE | 2024-02-20 18:13 | NURSING ---
Addendum entered by Nuria Hua 02/20/24 18:26: Dr. Cruz updated on elevated BGT this evening. Original Note: Per Dr. Cruz, discontinue humalog ACHS sliding scale.
--- NOTE | 2024-02-20 21:29 | HP.PCM_ITS ---
HPI - General General Date of Admission: 02/20/24 Date of Service: 02/20/24 Chief Complaint: Here for rehabilitation. HPI Narrative 02/16/2024 JHONY FORBES, is a 88 Male who presents to [facility] ED with shortness of breath. Hypoxia, SOB, PCP noted low pulsox. History left pleural effusion, Eliquis held, sent to ER. BNP 246, Troponin 103. EKG atrial fibrillation, RBBB, No STEMI. Chest X-ray showed bilateral pleural effusion, left worse than right. 02/16/2024 Admit [facility]. IV Lasix for acute HFpEF. Consider thoracentesis for pleural effusion. 02/16/2024 Echo EF 55 to 60%. Asymmetric severe septal hypertrophy. Large pleural effusion. 02/16/2024 Heart rate 20 to 30, then 50 to 69, asymptomatic. Stop Metoprolol, order Atropine PRN bradycardia. 02/17/2024 Feels better, heart rate 43, oxygen 1 liter, hold beta cat. IV Lasix for acute on chronic HFpEF. Hold Eliquis for thoracentesis. 02/18/2024 Large left pleural effusion, plan thoracentesis tomorrow. Stop NPH insulin, continue SSI for hypoglycemia. 02/19/2024 Thoracentesis removed 1900mL clear yellow fluid. Consult General Surgery in case chest tube needed for left pneumothorax. Elevated troponin 2/2 demand ischemia. 02/20/2024 Admit to TCU with debility, here for rehabilitation, strengthening, prior to discharge home with chuy. [facility] Medical History Asymmetric septal hypertrophy History of TIA (transient ischemic attack) (10/2020) ATN (acute tubular necrosis) Acute hepatitis BPH (benign prostatic hyperplasia) Cholecystitis, acute Stroke-like symptoms Aphasia Longstanding persistent atrial fibrillation Chronic diastolic (congestive) heart failure Colon cancer Secondary pulmonary arterial hypertension New onset atrial fibrillation (12/24/18) Type 2 diabetes mellitus Home Medications ?Medication ?Instructions ?Recorded ?Last Taken ?Type apixaban 2.5 mg tablet 2.5 mg PO BID BLOOD THINNER 10/16/20 02/16/24 History amlodipine 2.5 mg tablet 2.5 mg PO DAILY BP #90 tabs 07/31/23 Unknown Rx glimepiride 4 mg tablet 4 mg PO BID diabetes 10/05/23 02/16/24 History spironolactone 25 mg tablet 25 mg PO DAILY water pill #30 tabs 11/10/23 02/20/24 Rx ammonium lactate 12 % lotion 1 applic topical QDAY rough/scaly 02/07/24 02/16/24 History skin metoprolol tartrate 25 mg tablet 25 mg PO BID heart 02/07/24 02/18/24 History [id number] 300 mcg-K 60 1 tab PO DAILY SUPPLEMENT 02/07/24 02/16/24 History mcg-lycop 600 mcg-lutein 300 mcg tablet nitroglycerin 0.4 mg sublingual 0.4 mg sublingual Q5M PRN chest 02/16/24 Unknown History tablet pain acetaminophen 325 mg tablet 650 mg (2 x 325 mg) PO Q6H PRN PRN 02/20/24 02/18/24 Rx Pain 1-10 Or Fever >100.7 #0 tabs furosemide 40 mg tablet (Lasix) 40 mg PO BIDCM diuertic #90 tabs 02/20/24 02/15/24 Rx insulin NPH isoph U-100 human 100 10 unit (0.1 mL) subcut BID 02/20/24 02/16/24 Rx unit/mL (3 mL) subcutaneous pen diabetes #15 mL (Humulin N NPH U-100 Insulin KwikPen) insulin lispro 100 unit/mL See Protocol subcut ACHS diabetes 02/20/24 02/20/24 Rx subcutaneous pen (Humalog KwikPen #0 mL (U-100) Insulin) sennosides 8.6 mg-docusate sodium 2 tab PO BID PRN PRN Constipation 02/20/24 Unknown Rx 50 mg tablet (Stimulant Laxative #0 tabs Plus) Allergy/AdvReac Type Severity Reaction Status Date / Time dabigatran etexilate (From Allergy skin of Verified 02/17/24 14:57 Pradaxa) legs peeled/itching lisinopril Allergy Angioedema Verified 02/17/24 14:57 meloxicam (From Mobic) Allergy Unknown Verified 02/17/24 14:57 rivaroxaban (From Xarelto) AdvReac skin rash Verified 02/17/24 14:57 sulfamethoxazole (From AdvReac high sugars Verified 02/17/24 14:57 Bactrim) trimethoprim (From Bactrim) AdvReac high sugars Verified 02/17/24 14:57 Surgical History H/O local excision of skin lesion (10/26/21) History of cardioversion (2013) History of partial colectomy Social History (Updated 02/20/24 @ 21:[address] Corwin Cruz MD) household members: significant other and other details: Fiance. Smoking Status: Former smoker how long ago did patient quit smokin years ago alcohol intake: never substance use type: does not use caffeine: Yes Type: coffee Number of servings: 3 ROS Constitutional Constitutional: Reports fatigue and weakness; Denies chills, fever(s) or weight gain ENT HEENT: Denies headache(s), nasal congestion or nasal discharge Cardiovascular Cardiovascular: Denies chest pain or palpitations Respiratory/Chest Respiratory/Chest: Reports shortness of breath with exertion; Denies cough or excessive phlegm production Gastrointestinal Gastrointestinal: Denies abdominal pain, nausea or vomiting Genitourinary Genitourinary: Denies dysuria Musculoskeletal Musculoskeletal: Denies joint pain or joint swelling Integumentary Integumentary: Denies rash or wounds Neurologic Neurologic: Denies focal weakness, numbness or tingling Psychiatric Psychiatric: Denies anxiety, auditory hallucinations, depression, homicidal ideation or suicidal ideation Vital Signs Vital Signs Vital Signs: 02/20/24 14:34 02/20/24 15:51 02/20/24 16:13 Temperature 97.6 F L Temperature Source Temporal Pulse Rate 79 Pulse Rhythm Regular Pulse Strength Normal (2+) Normal (2+) Respiratory Rate 20 H Respiratory Effort Normal Non-Labored Respiratory Depth Normal Respiratory Pattern Normal Blood Pressure 131/59 H Blood Pressure Mean 83 Blood Pressure Source Monitor Blood Pressure Position Semi-Fowlers Blood Pressure Location Right Arm Pulse Ox 98 Oxygen Delivery Method Nasal Cannula Nasal Cannula Oxygen Flow Rate (L/min) 2 2 02/20/24 18:04 Temperature Temperature Source Pulse Rate 85 Pulse Rhythm Pulse Strength Respiratory Rate Respiratory Effort Respiratory Depth Respiratory Pattern Blood Pressure 119/60 Blood Pressure Mean 79 Blood Pressure Source Monitor Blood Pressure Position Sitting Blood Pressure Location Left Arm Pulse Ox Oxygen Delivery Method Oxygen Flow Rate (L/min) Weight Weight: 106.05 kg Body Mass Index (BMI) 37.7 Physical Exam Const alert General Appearance: cooperative HEENT normocephalic Eyes PERRL and EOMs intact bilaterally Neck supple, no JVD and no carotid bruits Resp normal respiratory effort, normal air movement and clear to auscultation bilaterally Auscultation: breath sounds absent bilateral (Bases.) Cardio regular rate and regular rhythm GI normal to inspection, nondistended, normoactive bowel sounds, non-tender and non-distended Extremity normal capillary refill General Extremity: Negative for edema Skin no rashes or lesions noted General Skin Exam: no breakdown Psych affect normal Appearance: appropriate Results Lab / Micro Data Labs: Laboratory Results - last 24 hr 02/20/24 16:46: POC Glucose 351 H Assessment & Plan Assessment/Plan (1) Debility: (2) Acute respiratory failure with hypoxia: (3) Acute on chronic heart failure with preserved ejection fraction (HFpEF): (4) Bilateral pleural effusion: (5) Pneumothorax, left: (6) Diabetes mellitus: (7) Essential (primary) hypertension: (8) Atrial fibrillation: PLAN: Plan 88 year old male with below past medical history hospitalized for acute respiratory failure 2/2 acute on chronic HFpEF/large pleural effusion, underwent large volume thoracentesis 02/18/2024, complicated by left pneumothorax, admitted to TCU with debility, here for rehabilitation, strengthening, prior to discharge home with fiance. * Debility - PT/OT. * Pain - Tylenol 1000mg q6 prn pain (1-10). * Bowel - senna/colace 2 tablets bid prn. * Adult immunization - Administer pneumonia vaccine, covid vaccine, flu vaccine as appropriate. * DVT prophylaxis - on Eliquis. * Hypertension - Metoprolol 25mg bid, Amlodipine 2.5mg daily. * Skin irritation - Ammonium lactate topical daily, Calmoseptine topical bid. * Atrial fibrillation - Metoprolol 25mg bid, Eliquis 2.5mg bid. * Acute on chronic HFpEF - Metoprolol 25mg bid, Aldactone 25mg daily, Furosemide 40mg bidcm. * Diabetes Mellitus II - Glimepiride 4mg bidcm, Humulin N 10 units sc bid. * Nutrition - MVI 1 tablet daily. * Coronary artery disease - Metoprolol 25mg bid, Eliquis 2.5mg bid, NTG 0.4mg sl q5m prn. * Tinea Corporis - Nystatin powder topical bid.
[2024-02-20 22:15] VITALS: BP 127/61; PULSE 83
[2024-02-20] MEDS: Metoprolol Tartrate 25 MG Tablet PO (22:15)
[2024-02-20] MEDS: APIXABAN 2.5 MG TABLET (WCH) PO (22:16)
[2024-02-20] MEDS: Insulin NPH Human 100 UNITS/ML PEN 10 UNITS SC (22:17)
[2024-02-20 22:57] LABS: Bedside Glucose 346 mg/dL (74-106)
[2024-02-21] VITALS (8 sets, daily range): BP systolic 110–127; BP diastolic 51–70; PULSE 47–90; RESP 16–18; TEMP 36.4; O2SAT 90–99; BMI 37.0
[2024-02-21] MEDS: Furosemide 40 MG Tablet PO ×2 (05:46→13:11)
[2024-02-21 05:49] LABS: Absolute Lymphocyte Count 1.65 X10^3/uL (0.83-4.51); Absolute Neutrophil Count 7.1 X10^3/uL (2.0-7.7); Basophil# 0.04 X10^3/uL; Basophil% 0.4 % (0-1); Eosinophil# 0.28 X10^3/uL; Eosinophils% 2.7 % (0-5); Hematocrit 40.8 % (40-54); Lymphocyte # 1.65 X10^3/ul (0.83-4.51); Mean Corp Hgb Conc 31.9 g/dL (32-36); Mean Corpuscular Volume 90.9 fL (80-94); Mean Platelet Vol. 10.5 fl (6.2-12.0); Monocyte% 11.6 % (0-10); NRBC Flagged by Analyzer 0 % (0-5); Neutrophil # 7.08 X10^3/uL (2.7-7.7); Neutrophil % 68.5 % (47-70); Platelet Count 238 K/mm3 (150-450); RBC Distribution Width CV 15.3 % (11.6-14.6); RBC Distribution Width SD 50.4 fl (35.1-43.9); Red Blood Count 4.49 M/mm3 (4.6-6.2); White Blood Count 10.3 K/mm3 (4.4-11.0)
[2024-02-21 06:36] LABS: Anion Gap 3 (5-15); BUN 32 mg/dL (7-18); BUN/Creat Ratio 21.9 RATIO (10-20); Calcium,Total 8.4 mg/dL (8.5-10.1); Chloride 98 mmol/L (98-107); Creatinine, Serum 1.46 mg/dL (0.70-1.30); EST Glomerular Filtration Rate 48 mL/min (>60); Est Glom Filt Rate - Afr Amer 58 mL/min (>60); Estimated Creatinine Clearance 39.15 ml/min; Glucose 237 mg/dL (74-106); Potassium 4.9 mmol/L (3.5-5.1); Sodium Level 133 mmol/L (136-145)
[2024-02-21 06:38] LABS: Bedside Glucose 195 mg/dL (74-106)
[2024-02-21] MEDS: Multivitamins,Ther W-Minerals Tablet 1 TABLET PO (09:04)
[2024-02-21] MEDS: APIXABAN 2.5 MG TABLET (WCH) PO ×2 (09:05→20:33)
[2024-02-21] MEDS: Glimepiride 4 MG Tablet PO ×2 (09:06→16:54)
[2024-02-21] MEDS: amLODIPine 2.5 MG Tablet PO (09:07)
[2024-02-21] MEDS: Metoprolol Tartrate 25 MG Tablet PO (09:07)
[2024-02-21] MEDS: Spironolactone 25 MG Tablet PO (09:07)
[2024-02-21] MEDS: Insulin NPH Human 100 UNITS/ML PEN 10 UNITS SC ×2 (09:09→22:15)
[2024-02-21] MEDS: Menthol/Lanolin/Calamine/Znox 113 GM Tube 1 APPLIC TOPICAL ×2 (09:17→20:34)
[2024-02-21] MEDS: Ammonium Lactate 225 gm Bottle 1 APPLIC TOPICAL (09:21)
[2024-02-21] MEDS: Nystatin Powder 15gm Bottle 1 APPLIC TOPICAL ×2 (09:30→20:34)
[2024-02-21] MEDS: Tuberculin,Purif.prot.deriv. 50 TU/ML Vial 0.1 ML ID (12:10)
--- NOTE | 2024-02-21 12:10 | PHA.CONS_ITS ---
Documented by User: Milla Burt 02/21/24 12:22 TCU RX Drug Regimen Review Subjective/Objective Subjective/Objective: Subjective: TCU Admission. 88 YOM presented to the ER with shortness of breath. Hospitalized for acute respiratory failure 2/2 acute on chronic HFpEF/large pleural effusion, underwent large volume thoracentesis 02/18/2024, complicated by left pneumothorax. Admitted to TCU with debility for strengthening and rehabilitation. Objective: Allergies dabigatran etexilate (From Pradaxa) Allergy (Verified 02/17/24 14:57) skin of legs peeled/itching lisinopril Allergy (Verified 02/17/24 14:57) Angioedema meloxicam (From Mobic) Allergy (Verified 02/17/24 14:57) Unknown rivaroxaban (From Xarelto) Adverse Reaction (Verified 02/17/24 14:57) skin rash sulfamethoxazole (From Bactrim) Adverse Reaction (Verified 02/17/24 14:57) high sugars trimethoprim (From Bactrim) Adverse Reaction (Verified 02/17/24 14:57) high sugars Current Medications Generic Name Dose Route Start Last Admin Trade Name Freq PRN Reason Stop Dose Admin Acetaminophen 1,000 mg 02/20/24 21:46 Acetaminophen 500 Mg Tablet PO Q6H PRN PRN Pain Score 1-10 Amlodipine Besylate 2.5 mg 02/21/24 10:00 02/21/24 09:07 Amlodipine 2.5 Mg Tablet PO 2.5 mg DAILY LAUREN Administration Protocol Apixaban 2.5 mg 02/20/24 22:00 02/21/24 09:05 Apixaban 2.5 Mg Tablet ([facility]) PO 2.5 mg BID LAUREN Administration Calamine/Phenol 1 applic 02/20/24 22:00 02/21/24 09:17 Menthol/Lanolin/Calamine/Znox 113 Gm Tube TOPICAL 1 applic BID LAUREN Administration Protocol Furosemide 40 mg 02/21/24 06:00 02/21/24 05:46 Furosemide 40 Mg Tablet PO 40 mg BIDLX LAUREN Administration Protocol Glimepiride 4 mg 02/20/24 17:00 02/21/24 09:06 Glimepiride 4 Mg Tablet PO 4 mg BIDCM LAUREN Administration Insulin Human NPH 10 units 02/20/24 22:00 02/21/24 09:09 Insulin Nph Human 100 Units/Ml Pen SC 10 units BID [facility] Administration Lactic Acid 1 applic 02/21/24 10:00 02/21/24 09:21 Ammonium Lactate 225 Gm Bottle TOPICAL 1 applic DAILY [facility] Administration Protocol Metoprolol Tartrate 25 mg 02/20/24 22:00 02/21/24 09:07 Metoprolol Tartrate 25 Mg Tablet PO 25 mg BID LAUREN Administration Protocol Multivitamins/Minerals 1 tablet 02/21/24 08:00 02/21/24 09:04 Multivitamins,Ther W-Minerals Tablet PO 1 tablet BREAKFAST LAUREN Administration Nitroglycerin 0.4 mg 02/20/24 15:11 Nitroglycerin (Inpatient Use) 0.4 Mg Tab.Subl SL Q5M PRN CARDIAC/CHEST PAIN Nystatin 1 applic 02/20/24 22:00 02/21/24 09:30 Nystatin Powder 15gm Bottle TOPICAL 1 applic BID [facility] Administration Protocol Senna/Docusate Sodium 2 tablet 02/20/24 14:23 Senna/Docusate Sodium 1 Tablet PO BID PRN PRN Constipation Spironolactone 25 mg 02/21/24 10:00 02/21/24 09:07 Spironolactone 25 Mg Tablet PO 25 mg DAILY [facility] Administration Protocol Tuberculin PPD 0.1 ml 02/28/24 10:00 Tuberculin,Purif.Prot.Deriv. 50 Tu/Ml Vial ID 02/28/24 10:01 X1 ONE Problem List Atrial fibrillation (Acute) Essential (primary) hypertension (Acute) Diabetes mellitus (Acute) Acute on chronic heart failure with preserved ejection fraction (HFpEF) (Acute) Acute respiratory failure with hypoxia (Acute) Debility (Acute) Pneumothorax, left (Acute) Bilateral pleural effusion (Acute) Vital Signs Temp Pulse Resp BP Pulse Ox O2 Del Method O2 Flow Rate 97.6 F L 71 20 H 110/51 L 98 Nasal Cannula 2 02/20/24 14:34 02/21/24 09:33 02/20/24 14:34 02/21/24 09:33 02/20/24 14:34 02/20/24 15:51 02/20/24 15:51 Oxygen Flow Rate (L/min) 2 Oxygen Delivery Method Nasal Cannula Weight: 106.05 kg Body Mass Index (BMI) 37.7 Sodium 133 mmol/L (136-145) L 02/21/24 05:20 Potassium 4.9 mmol/L (3.5-5.1) 02/21/24 05:20 Chloride 98 mmol/L (98-107) 02/21/24 05:20 Carbon Dioxide 32.0 mmol/L (21.0-32.0) 02/21/24 05:20 Anion Gap 3 (5-15) L 02/21/24 05:20 BUN 32 mg/dL (7-18) H 02/21/24 05:20 Creatinine 1.46 mg/dL (0.70-1.30) H 02/21/24 05:20 Est GFR (MDRD) Af Amer 58 mL/min (>60) L 02/21/24 05:20 Est GFR (MDRD) Non-Af 48 mL/min (>60) L 02/21/24 05:20 BUN/Creatinine Ratio 21.9 RATIO (10-20) H 02/21/24 05:20 Glucose 237 mg/dL (74-106) H 02/21/24 05:20 Assessment/Plan: 1. Pain: acetaminophen 1000mg PO Q6H PRN pain 1-10. Resident has not had any doses. Please continue to monitor for increased pain and PRN usage. 2. Bowel: senna/docusate 2T PO BID PRN constipation. Resident has not had any doses. Please continue to monitor for constipation and PRN usage. Last do cumented bowel movement was 02/17. 3. Hypertension/CAD/HFpEF/atrial fibrillation: metoprolol tartrate 25mg PO BID, amlodipine 2.5mg PO daily, spironolactone 25mg PO daily, furosemide 40mg PO BIDLX, apixaban 2.5mg PO BID and nitroglycerin 0.4mg SL Q5M PRN chest pain. Resident has not had any PRN doses. Please continue to monitor BP (last 110/51), HR (last 71), SCr (last 1.46mg/dL), S/S of bleeding, hemoglobin (last 13g/dL), chest pain, PRN usage and potassium (last 4.9mmol/L). Would not change apixaban dose at this time, SCr is currently <1.5mg/dL but was recently >1.5mg/dL and age is >80. 4. Diabetes mellitus II: glimepiride 4mg PO BIDCM and insulin NPH 10units SC BID. Please continue to monitor hemoglobin A1c (last 8.7% 02/17/24), glucose (last 195mg/dL), renal function and S/S of hypoglycemia. 5. Nutrition: multivitamin with minerals 1T PO breakfast. Please continue to monitor. 6. Skin irritation/Tinea Corporis: Ammonium lactate topical daily, Calmoseptine topical bid, Nystatin powder topical bid. Please continue to monitor. Assessment/Plan for indications treated with psychotropic medications: None Medical chart and medication regimen reviewed. The following medication irregularities or issues were identified: None Date Date of Note:: 02/21/24 Documented by User: Dr. Corwin Cruz MD 02/21/24 12:53 TCU RX Drug Regimen Review Provider Comments Provider responsibility Provider Comments to Recommendations by Pharmacy: Agree
[2024-02-21 12:15] LABS: Bedside Glucose 306 mg/dL (74-106)
--- NOTE | 2024-02-21 12:15 | NURSING ---
Combat Systems Operator Mine Warfare Note; Activity Asset: Rosalinda Blanton is independent in his choice of daily activities. He plays a vowel word game, watches tv, reads and spends time w/family. He welcomes visit s from the animal control supervisor and therapy dog when available. Staff will remind him of weekly activities and respect his right to say no.
--- NOTE | 2024-02-21 14:39 | CASEMGMT ---
Social Work- Met with pt to complete initial assessment. Introduced self and role. Verified/updated contacts. Patient confirmed code status as full code. Requested pt/family provide copies of living will. Educated to [facility] insurance with review dates and continued stay is not guaranteed with each review. Pt?s goal is to return home with S/O. SW will continue to follow for DC planning. CLAUDIO Collins ?
[2024-02-21 16:25] LABS: Bedside Glucose 377 mg/dL (74-106)
--- NOTE | 2024-02-21 17:02 | NURSING ---
PCP CONTACTED FOR VACCINES. PT REFUSING PNEUMONIA VACCINES.
[2024-02-21 20:49] LABS: Bedside Glucose 425 mg/dL (74-106)
[2024-02-21 22:18] LABS: Bedside Glucose 410 mg/dL (74-106)
[2024-02-22] VITALS (7 sets, daily range): BP systolic 102–117; BP diastolic 51–59; PULSE 67–83; RESP 14–18; TEMP 36.4–36.8; O2SAT 94–96
[2024-02-22] MEDS: Furosemide 40 MG Tablet PO ×2 (05:39→13:53)
[2024-02-22 06:08] LABS: Bedside Glucose 250 mg/dL (74-106)
[2024-02-22] MEDS: Insulin Lispro 100 UNIT/ML INSULN.PEN SC (07:00)
[2024-02-22] MEDS: amLODIPine 2.5 MG Tablet PO (09:43)
[2024-02-22] MEDS: Metoprolol Tartrate 25 MG Tablet PO ×2 (09:43→22:18)
[2024-02-22] MEDS: Spironolactone 25 MG Tablet PO (09:44)
[2024-02-22] MEDS: Multivitamins,Ther W-Minerals Tablet 1 TABLET PO (09:44)
[2024-02-22] MEDS: APIXABAN 2.5 MG TABLET (WCH) PO ×2 (09:45→22:19)
[2024-02-22] MEDS: Glimepiride 4 MG Tablet PO ×2 (09:45→18:19)
[2024-02-22] MEDS: Insulin NPH Human 100 UNITS/ML PEN 20 UNITS SC (09:46)
[2024-02-22] MEDS: Menthol/Lanolin/Calamine/Znox 113 GM Tube 1 APPLIC TOPICAL ×2 (09:53→22:22)
[2024-02-22] MEDS: Nystatin Powder 15gm Bottle 1 APPLIC TOPICAL ×2 (09:53→22:22)
[2024-02-22] MEDS: Ammonium Lactate 225 gm Bottle 1 APPLIC TOPICAL (09:54)
--- NOTE | 2024-02-22 10:06 | NURSING ---
PT AND NOTIFIED OF A PT TESTED POSITIVE FOR COVID.
[2024-02-22 11:48] LABS: Bedside Glucose 206 mg/dL (74-106)
[2024-02-22] MEDS: Insulin Lispro 100 UNIT/ML INSULN.PEN 10 UNIT SC (12:25)
[2024-02-22 17:00] LABS: Glucose 75 mg/dL (74-106)
[2024-02-22 17:09] LABS: Bedside Glucose 74 mg/dL (74-106)
--- NOTE | 2024-02-22 17:36 | NURSING ---
CALLED THIS NURSE TO ROOM, STATED PT DOESN'T SEEM RIGHT HE WONT RESPOND TO ME. THIS NURSE FOUND PT VERY SLEEPY, PT DID RESPOND WHEN TALKED TO BUT TOOK A FEW SECONDS. HAD AID RECHECK BLOOD SUGAR AND GET RN. VITALS DONE BS 90, 113/51, HR 83, 98.3 TEMPORAL ,REPS 14, OXYGEN 90% ON 1L. TURNED OXYGEN UP TO 2L OXYGEN THEN 94% AND PT WAKING UP A LITTLE MORE AND WAS ALERT AND ORIENTED X3 AND KNEW WHO HIS WAS AND SMILED. PT GIVEN SUPPER TRAY AND IS EATING. WILL CONTINUE TO MONITOR. IS AWARE OF SITUATION TODAY AND IS ADJUSTING MEDS. WILL CONTINUE TO MONITOR.
[2024-02-22 17:48] LABS: Bedside Glucose 90 mg/dL (74-106)
--- NOTE | 2024-02-22 17:58 | NURSING ---
Addendum entered by Saima Ocampo 02/22/24 19:41: Dr. Cruz made aware of low glucose. Insulin decreased. Original Note: Patient's visitor comes out to nurses station asking if we can check patient's glucose levels because patient is very sweaty in room. Patient is upright in chair and talking but is diaphoretic and pale. BGT 43 for initial check and while aide is getting juice, BGT recheck is 39. Patient drinks juice and STAT lab draw ordered. 15 min recheck is 74 and STAT lab 75. Patient given peanut butter and crackers and 15min recheck 90.
[2024-02-22 21:53] LABS: Bedside Glucose 163 mg/dL (74-106)
[2024-02-22] MEDS: Insulin NPH Human 100 UNITS/ML PEN 10 UNITS SC (22:18)
[2024-02-23] VITALS (8 sets, daily range): BP systolic 100–117; BP diastolic 47–58; PULSE 77–87; RESP 18–20; TEMP 36.5; O2SAT 93–96; BMI 37.1
[2024-02-23] MEDS: Furosemide 40 MG Tablet PO ×2 (05:51→13:26)
[2024-02-23 06:40] LABS: Bedside Glucose 55 mg/dL (74-106)
[2024-02-23 06:47] LABS: Bedside Glucose 76 mg/dL (74-106)
[2024-02-23] MEDS: Glimepiride 4 MG Tablet PO ×2 (08:21→17:39)
[2024-02-23] MEDS: Multivitamins,Ther W-Minerals Tablet 1 TABLET PO (08:21)
[2024-02-23] MEDS: amLODIPine 2.5 MG Tablet PO (08:21)
[2024-02-23] MEDS: APIXABAN 2.5 MG TABLET (WCH) PO ×2 (08:22→21:47)
[2024-02-23] MEDS: Menthol/Lanolin/Calamine/Znox 113 GM Tube 1 APPLIC TOPICAL ×2 (08:24→21:47)
[2024-02-23] MEDS: Nystatin Powder 15gm Bottle 1 APPLIC TOPICAL ×2 (08:24→21:48)
[2024-02-23 08:31] LABS: Bedside Glucose 121 mg/dL (74-106)
[2024-02-23] MEDS: Insulin NPH Human 100 UNITS/ML PEN 10 UNITS SC ×2 (09:53→21:52)
[2024-02-23] MEDS: Spironolactone 25 MG Tablet PO (09:55)
[2024-02-23] MEDS: Metoprolol Tartrate 25 MG Tablet PO ×2 (09:55→21:50)
[2024-02-23 10:16] LABS: Bedside Glucose 158 mg/dL (74-106)
[2024-02-23] MEDS: Ammonium Lactate 225 gm Bottle 1 APPLIC TOPICAL (11:34)
[2024-02-23 11:48] LABS: Bedside Glucose 99 mg/dL (74-106)
[2024-02-23 14:41] LABS: Bedside Glucose 39 mg/dL (74-106)
[2024-02-23 14:41] LABS: Bedside Glucose 44 mg/dL (74-106)
[2024-02-23 16:33] LABS: Bedside Glucose 123 mg/dL (74-106)
[2024-02-23 21:30] LABS: Bedside Glucose 180 mg/dL (74-106)
[2024-02-24] MEDS: Furosemide 40 MG Tablet PO ×2 (05:18→13:54)
[2024-02-24 06:00] VITALS: BMI 38.2
[2024-02-24 07:03] LABS: Bedside Glucose 82 mg/dL (74-106)
[2024-02-24 07:30] LABS: Bedside Glucose 79 mg/dL (74-106)
[2024-02-24] MEDS: Glimepiride 4 MG Tablet PO ×2 (08:20→17:15)
[2024-02-24] MEDS: Multivitamins,Ther W-Minerals Tablet 1 TABLET PO (08:20)
[2024-02-24] MEDS: APIXABAN 2.5 MG TABLET (WCH) PO ×2 (08:21→21:55)
[2024-02-24] MEDS: Spironolactone 25 MG Tablet PO (08:21)
[2024-02-24] MEDS: Ammonium Lactate 225 gm Bottle 1 APPLIC TOPICAL (08:22)
[2024-02-24] MEDS: amLODIPine 2.5 MG Tablet PO (08:26)
[2024-02-24 08:27] VITALS: BP 102/64; PULSE 74
[2024-02-24] MEDS: Metoprolol Tartrate 25 MG Tablet PO ×2 (08:27→21:55)
[2024-02-24] MEDS: Nystatin Powder 15gm Bottle 1 APPLIC TOPICAL ×2 (08:33→21:54)
[2024-02-24] MEDS: Menthol/Lanolin/Calamine/Znox 113 GM Tube 1 APPLIC TOPICAL ×2 (08:34→21:51)
[2024-02-24] MEDS: Insulin NPH Human 100 UNITS/ML PEN 10 UNITS SC ×2 (10:31→21:56)
[2024-02-24 11:14] LABS: Bedside Glucose 254 mg/dL (74-106)
[2024-02-24 12:11] LABS: Bedside Glucose 196 mg/dL (74-106)
[2024-02-24 12:39] VITALS: BP 102/44; PULSE 74; RESP 18; TEMP 36.8; O2SAT 94
[2024-02-24 16:42] LABS: Bedside Glucose 261 mg/dL (74-106)
[2024-02-24 18:04] VITALS: PULSE 74; RESP 18
[2024-02-24 21:47] LABS: Bedside Glucose 302 mg/dL (74-106)
[2024-02-24 21:55] VITALS: BP 115/57; PULSE 76
[2024-02-24 22:07] VITALS: BP 115/57; PULSE 76; O2SAT 93
[2024-02-25] MEDS: Furosemide 40 MG Tablet PO ×2 (05:32→15:59)
[2024-02-25 06:00] VITALS: BMI 36.4
[2024-02-25 06:42] LABS: Bedside Glucose 111 mg/dL (74-106)
[2024-02-25 11:11] VITALS: PULSE 70
[2024-02-25] MEDS: Metoprolol Tartrate 25 MG Tablet PO ×2 (11:11→21:29)
[2024-02-25] MEDS: amLODIPine 2.5 MG Tablet PO (11:11)
[2024-02-25] MEDS: APIXABAN 2.5 MG TABLET (WCH) PO ×2 (11:12→21:29)
[2024-02-25] MEDS: Glimepiride 4 MG Tablet PO ×2 (11:12→17:45)
[2024-02-25] MEDS: Spironolactone 25 MG Tablet PO (11:12)
[2024-02-25] MEDS: Multivitamins,Ther W-Minerals Tablet 1 TABLET PO (11:12)
[2024-02-25 12:54] LABS: Bedside Glucose 163 mg/dL (74-106)
[2024-02-25] MEDS: Menthol/Lanolin/Calamine/Znox 113 GM Tube 1 APPLIC TOPICAL ×2 (13:56→21:29)
[2024-02-25] MEDS: Ammonium Lactate 225 gm Bottle 1 APPLIC TOPICAL (13:56)
[2024-02-25] MEDS: Nystatin Powder 15gm Bottle 1 APPLIC TOPICAL ×2 (13:57→21:30)
[2024-02-25 14:00] VITALS: O2SAT 94
[2024-02-25 16:00] VITALS: BP 114/58; PULSE 70; RESP 16; TEMP 36.8; O2SAT 95
[2024-02-25 16:36] LABS: Bedside Glucose 246 mg/dL (74-106)
--- NOTE | 2024-02-25 19:52 | NURSING ---
Patient earlier this AM expressing desires to go home with hospice measures in place to enjoy the final aspects of his life. MD aware ok w/ PT signing DNRCC and PT going home w/ HOSPICE in near future. VM left for SW to initiate that process tomorrow. Family ok and expressed desires for this process to begin tomorrow.
[2024-02-25 21:29] VITALS: BP 99/62; PULSE 76
[2024-02-25] MEDS: Insulin NPH Human 100 UNITS/ML PEN 10 UNITS SC (21:39)
[2024-02-25 21:54] LABS: Bedside Glucose 270 mg/dL (74-106)
[2024-02-26] MEDS: Furosemide 40 MG Tablet PO ×2 (05:43→13:48)
[2024-02-26 06:00] VITALS: BMI 36.5
[2024-02-26 06:11] LABS: Bedside Glucose 131 mg/dL (74-106)
[2024-02-26 07:04] VITALS: O2SAT 99
[2024-02-26 07:15] VITALS: O2SAT 94
[2024-02-26] MEDS: Multivitamins,Ther W-Minerals Tablet 1 TABLET PO (08:24)
[2024-02-26] MEDS: Glimepiride 4 MG Tablet PO ×2 (08:24→17:41)
[2024-02-26] MEDS: Spironolactone 25 MG Tablet PO (08:25)
[2024-02-26] MEDS: Nystatin Powder 15gm Bottle 1 APPLIC TOPICAL ×2 (08:26→22:06)
[2024-02-26] MEDS: Ammonium Lactate 225 gm Bottle 1 APPLIC TOPICAL (08:27)
[2024-02-26 08:28] VITALS: PULSE 78
[2024-02-26] MEDS: Metoprolol Tartrate 25 MG Tablet PO ×2 (08:28→22:07)
[2024-02-26] MEDS: Insulin NPH Human 100 UNITS/ML PEN 10 UNITS SC ×2 (08:28→22:09)
[2024-02-26] MEDS: amLODIPine 2.5 MG Tablet PO (08:29)
[2024-02-26] MEDS: APIXABAN 2.5 MG TABLET (WCH) PO ×2 (08:33→22:07)
[2024-02-26] MEDS: Menthol/Lanolin/Calamine/Znox 113 GM Tube 1 APPLIC TOPICAL ×2 (08:33→22:06)
[2024-02-26 11:24] LABS: Bedside Glucose 174 mg/dL (74-106)
--- NOTE | 2024-02-26 12:24 | CASEMGMT ---
Addendum entered by Stephany Kenny 02/26/24 15:54: [facility] is meeting with pt and on 02/26 at 1030 am. Original Note: Social Work Received VM from weekend DRAPERY CUTTER stating pt and are requesting pt DC home with hospice services. SW collaborated with . agreed to hospice and for this worker to begin conversation for DC. SW spoke with pt and at bedside. phoned dtr to be included in conversation. SW inquired to pt about his wishes, medically, physically, end-of-life, for this worker to properly assist with upholding. Pt explained he wants to be in the comfort of his own home/environment, no longer wants medical intervention. SW validated feelings and will assist with wishes and DC plans. Family did inquire about IPU. SW educated to the criteria, and pt likely will not be appropriate. SW noted pt does need max assist with ADLs. is aware pt needs physical assistance and expressed she cannot provide heavy physical assist d/t her back issues. SW educated to SNF with hospice or hiring aides for home with hospice. Explained to financial liability to each option. Acknowledged going to a SNF with hospice defeats pt's wishes of being home. and dtr agreed, and will contact aide agencies to secure assistance. Dtr stated she can provide some assistance outside of work schedule as well. SW provided list of private duty agencies for to begin contacting. SW explained once aides are secured, this worker can finalize DC. Answered further questions. Pt agreeable to continue working with therapy until DC. SORAYA sent secure email referral to Marielle at [facility]. SW will continue to follow. Plan: DC home with , [facility], once SOFTWARE ENGINEER KERNEL are secured for needed physical assistance. Stephany Kenny, [employer] POWER PLANT MANAGER
[2024-02-26 14:51] VITALS: BP 102/58; PULSE 71; RESP 18; TEMP 36.3; O2SAT 96
--- NOTE | 2024-02-26 15:58 | CASEMGMT ---
Social Work BIMS () and PHQ-9 () completed for MDS assessment. Patient confirms his depressive symptoms are stemming from not being home and having the change in his medical and functional abilities. SW is actively working with pt and family on pt discharging home with hospice. Stephany Kenny, ELECTRONIC DEVELOPMENT TECHNICIAN POST ANESTHESIA ROOM NURSE
[2024-02-26 16:48] LABS: Bedside Glucose 112 mg/dL (74-106)
[2024-02-26 21:32] LABS: Bedside Glucose 191 mg/dL (74-106)
[2024-02-26 22:05] VITALS: BP 106/63; PULSE 78; O2SAT 97
[2024-02-26 22:07] VITALS: BP 106/63; PULSE 78
[2024-02-27] MEDS: Furosemide 40 MG Tablet PO ×2 (05:05→12:11)
[2024-02-27 06:00] VITALS: BMI 36.1
--- NOTE | 2024-02-27 06:58 | NURSING ---
Patient blood sugar checked at 0620, result 55, juice and peanut butter crackers given, rechecked blood sugar at 0635, result 50, coke and peanut butter crackers given, rechecked at 0650, result 67, coke given, recheck at 0700, result 95. Dr. Cruz updated via communication board.
[2024-02-27 07:20] LABS: Bedside Glucose 55 mg/dL (74-106)
[2024-02-27 07:43] VITALS: O2SAT 99
--- NOTE | 2024-02-27 09:32 | NURSING ---
Called from radiology to have patient taken down for thoracentesis, had been previously ordered by Robson Montaño. This RN discussed with patient, he said before having fluid drained before he had pressure and pain with breathing and would hold my chest to take a breath. Says he doesn't have any of those symptoms, no concerns with his breathing. He does not want thoracentesis done. Lui in radiology updated. Patient waiting to meet with hospice today and expressed frustration with ongoing treatment, getting stuck for his blood sugars, wearing oxygen etc. Said he's done with all this treatment.
--- NOTE | 2024-02-27 10:14 | CASEMGMT ---
Addendum entered by Stephany Kenny 02/28/24 12:04: SW spoke with OT and and states with dtr's help, pt can transfer in the car. SORAYA sent DC orders to [facility] and spoke with Marielle Oh, nurse of [facility] at 1700, then hospice SOC is 1800. Addendum entered by Stephany Kenny 02/27/24 10:22: SW spoke with therapy to simulate a car transfer today to determine mode of transportation at [facility]. Original Note: Social Work SW received call from Korin at [facility] to discuss the care needed for pt. SORAYA educated to pt's needs and pt's request for hospice services. Korin states they have caregivers to provide that care beginning on 02/28 from 8a-5p five days a week. Korin also stated the caregivers can do mobility exercises with the pt to prevent quick physical decline. SW to speak with pt and about DC 02/27. Korin to follow up with after hospice meeting. SW spoke with pt and at bedside to discuss above conversation. Both are agreeable to DC 02/27 and to notify hospice at meeting. IDT updated. Plan: DC home with and dtr support 02/27, [facility] AARTI Moran
[2024-02-27 11:46] LABS: Bedside Glucose 192 mg/dL (74-106)
[2024-02-27 12:11] VITALS: PULSE 72
[2024-02-27] MEDS: APIXABAN 2.5 MG TABLET (WCH) PO ×2 (12:11→21:42)
[2024-02-27] MEDS: Metoprolol Tartrate 25 MG Tablet PO ×2 (12:11→21:43)
[2024-02-27] MEDS: Multivitamins,Ther W-Minerals Tablet 1 TABLET PO (12:12)
[2024-02-27] MEDS: Spironolactone 25 MG Tablet PO (12:12)
[2024-02-27] MEDS: Glimepiride 4 MG Tablet PO ×2 (12:12→18:18)
[2024-02-27] MEDS: amLODIPine 2.5 MG Tablet PO (12:12)
--- NOTE | 2024-02-27 12:52 | NURSING ---
Updated patient and that staff member tested positive for covid.
[2024-02-27 14:18] VITALS: O2SAT 95
[2024-02-27 16:00] VITALS: BP 116/53; PULSE 84; RESP 18; TEMP 36.6; O2SAT 97
[2024-02-27 17:22] LABS: Bedside Glucose 286 mg/dL (74-106)
--- NOTE | 2024-02-27 21:04 | DS.PCM_ITS ---
Providers Date of Admission: 02/20/24 Primary Care Physician: Dr. Alpesh Oconnell MD Consultations 02/26/24 13:38 Consult: Hospice / Palliative Care Routine Consulting Provider: [facility] Reason for Consult: [facility] - dx: CHF, respiratory failure EMERGENT Consult: No MD Notified: Yes Date Notified: 02/26/24 Time Notified: 10:38 Method of Notification: Text Reason For Visit: HYPOXIA, PLEURAL EFFUSION, ELEVATED TROPONIN Diagnosis Discharge Diagnosis (1) Debility: Status: Acute Code(s): R53.81 - Other malaise (2) Acute respiratory failure with hypoxia: Status: Acute Code(s): J96.01 - Acute respiratory failure with hypoxia (3) Acute on chronic heart failure with preserved ejection fraction (HFpEF): Status: Acute Code(s): I50.33 - Acute on chronic diastolic (congestive) heart failure (4) Bilateral pleural effusion: Status: Acute Code(s): J90 - Pleural effusion, not elsewhere classified (5) Pneumothorax, left: Status: Acute Code(s): J93.9 - Pneumothorax, unspecified (6) Diabetes mellitus: Status: Acute Code(s): E11.9 - Type 2 diabetes mellitus without complications (7) Essential (primary) hypertension: Status: Acute Code(s): I10 - Essential (primary) hypertension (8) Atrial fibrillation: Status: Acute Code(s): I48.91 - Unspecified atrial fibrillation Plan 88 year old male with below past medical history hospitalized for acute respiratory failure 2/2 acute on chronic HFpEF/large pleural effusion, underwent large volume thoracentesis 02/18/2024, complicated by left pneumothorax, admitted to TCU with debility, here for rehabilitation, strengthening, prior to discharge home with fiance. * Debility - PT/OT. * Pain - Tylenol 1000mg q6 prn pain (1-10). * Bowel - senna/colace 2 tablets bid prn. * Adult immunization - Administer pneumonia vaccine, covid vaccine, flu vaccine as appropriate. * DVT prophylaxis - on Eliquis. * Hypertension - Metoprolol 25mg bid, Amlodipine 2.5mg daily. * Skin irritation - Ammonium lactate topical daily, Calmoseptine topical bid. * Atrial fibrillation - Metoprolol 25mg bid, Eliquis 2.5mg bid. * Acute on chronic HFpEF - Metoprolol 25mg bid, Aldactone 25mg daily, Furosemide 40mg bidcm. * Diabetes Mellitus II - Glimepiride 4mg bidcm, Humulin N 10 units sc bid. * Nutrition - MVI 1 tablet daily. * Coronary artery disease - Metoprolol 25mg bid, Eliquis 2.5mg bid, NTG 0.4mg sl q5m prn. * Tinea Corporis - Nystatin powder topical bid. Medications at Discharge Home Medications apixaban 2.5 mg tablet 2.5 mg PO BID BLOOD THINNER 10/16/20 amlodipine 2.5 mg tablet 2.5 mg PO DAILY BP #90 tabs 07/31/23 glimepiride 4 mg tablet 4 mg PO BID diabetes 10/05/23 spironolactone 25 mg tablet 25 mg PO DAILY water pill #30 tabs 11/10/23 ammonium lactate 12 % lotion 1 applic topical QDAY rough/scaly skin 02/07/24 metoprolol tartrate 25 mg tablet 25 mg PO BID heart 02/07/24 [id number]-[id number] 300 mcg-K 60 mcg-lycop 600 mcg-lutein 300 mcg tablet 1 tab PO DAILY SUPPLEMENT 02/07/24 nitroglycerin 0.4 mg sublingual tablet 0.4 mg sublingual Q5M PRN chest pain 02/16/24 furosemide 40 mg tablet (Lasix) 40 mg PO BIDCM diuertic #90 tabs 02/20/24 insulin NPH isoph U-100 human 100 unit/mL (3 mL) subcutaneous pen (Humulin N NPH U-100 Insulin KwikPen) 10 unit (0.1 mL) subcut BID diabetes #15 mL 02/20/24 Hospital Course Operations None Procedures Thoracentesis Summary of Care Provided Minutes Spent on Discharge: 35 Hospital Course: 88 year old male with below past medical history hospitalized for acute respiratory failure 2/2 acute on chronic HFpEF/large pleural effusion, underwent large volume thoracentesis 02/18/2024, complicated by left pneumothorax, admitted to TCU with debility, here for rehabilitation, strengthening, prior to discharge home with chuy. Discharge home with fiance and daughter support 02/28/2024, [facility]. Physical Exam Const alert General Appearance: cooperative HEENT normocephalic Eyes PERRL and EOMs intact bilaterally Neck supple, no JVD and no carotid bruits Resp normal respiratory effort, normal air movement and clear to auscultation bilaterally Cardio regular rate and regular rhythm GI normal to inspection, nondistended, normoactive bowel sounds, non-tender and non-distended Extremity normal capillary refill General Extremity: Negative for edema Skin no rashes or lesions noted General Skin Exam: no breakdown Psych affect normal Appearance: appropriate Weight / BMI Weight Weight: 101.661 kg Body Mass Index (BMI) 36.1 ABG / Lab / Microbiology Data 02/21/24 05:20 02/22/24 16:42 Laboratory: Laboratory Results - last 24 hr 02/26/24 21:14: POC Glucose 191 H 02/27/24 06:17: POC Glucose 55 L 02/27/24 11:28: POC Glucose 192 H 02/27/24 17:03: POC Glucose 286 H Microbiology: Microbiology 02/22/24 Unknown Nasal Secretion SARS-CoV-2 Antigen (Rapid) - Final D/C Instructions Discharge Diet: No restrictions Discharge Activity: Return to Normal Activity, May Shower and Use Walker Weight Bearing Status: Weight bearing as tolerated Call your doctor if you observe: Fever of 101 or Higher, Inability to urinate, Inability to have a bowel movement, Shortness of breath, Dizziness, Fainting spells, Swelling in the ankles, Chest pain and Uncontrolled pain Additional Instructions: Discharge home with fiance and daughter support 02/28/2024, [facility]. Please Follow Up With: Abimael Ho MD When: Cancel. Meaningful Use Info Meaningful Use Meaningful Use Diagnoses (Choose all that apply): None applicable Ischemic Stroke Statin Dosing Therapy Reference: STATIN DOSE THERAPY REFERENCE: * Patients > 75 years receive moderate or high dose statin therapy. * Patients 75 years or YOUNGER should receive HIGH intensity statin dose unless contraindicated. You will be required to document reason for non-treatment if statin daily dose does not meet guidelines. HIGH DOSE STATIN THERAPY DAILY Atorvastatin > than or = to 40 mg Rosuvastatin > than or = to 20 mg Amlodipine + Atorvastatin > than or = to 2.5/40 mg Ezetimibe + Simvastatin 10/80 mg Simvastatin 80mg Discharge Plan Admission Admit Date/Time: 02/20/24 14:00 Primary Reason for Your Visit: Debility. Attending Provider: Corwin Cruz Chi Primary Care Provider: Alpesh Oconnell Consulting Providers: Josh Goel; Suzette Mares; Viktoria Rodriguez; Dalila Simmons [employer] Instructions Additional Instructions / Restrictions: Discharge home with fiance and daughter support 02/28/2024, [facility]. Discharge Orders/Prescriptions Prescriptions: Continued spironolactone 25 mg tablet 25 mg PO DAILY Qty: 30 11RF metoprolol tartrate 25 mg tablet 25 mg PO BID ammonium lactate 12 % lotion 1 applic topical QDAY glimepiride 4 mg tablet 4 mg PO BID apixaban 2.5 MG tablet 2.5 mg PO BID [id number] mcg tablet 1 tab PO DAILY nitroglycerin 0.4 mg tablet, sublingual 0.4 mg sublingual Q5M PRN (Reason: chest pain) furosemide [Lasix] 40 mg tablet 40 mg PO BIDCM Qty: 90 3RF Rx Instructions: Hold if creatinine jumps more than 1.6 Humulin N NPH Insulin KwikPen 100 unit/mL (3 mL) insulin pen 10 unit subcut BID Qty: 15 0RF Rx Instructions: Holds if BS < 130 amlodipine 2.5 mg tablet 2.5 mg PO DAILY Qty: 90 3RF Discontinued acetaminophen 325 mg Tablet 650 mg PO Q6H PRN PRN (Reason: Pain 1-10 Or Fever >100.7) Qty: 0 0RF insulin lispro [Humalog KwikPen Insulin] 100 unit/mL Insulin Pen See Protocol subcut ACHS Qty: 0 0RF Protocol: 2. Sliding Scale Insulin Low-Med Dosing Condition: 150-209 mg/dl = 1 unit Condition: 210-269 mg/dl = 2 units Condition: 270-329 mg/dl = 3 units Condition: 330-389 mg/dl = 4 units Condition: 390-449 mg/dl = 5 units Condition: Greater than 449 call physician Protocol Text: Suggested for: - Patients on Total Daily Insulin Dose of 28-36 units - Average body habitus patients LOW MEDIUM DOSING ALGORITHM sennosides-docusate sodium [Stimulant Laxative Plus] 8.6-50 mg Tablet 2 tab PO BID PRN PRN (Reason: Constipation) Qty: 0 0RF Referrals / Follow Up: Alpesh Oconnell MD [Primary Care Provider] - Disposition Disposition (needs filled in before D/C Order can be placed): Hospice in Home
[2024-02-27 21:23] LABS: Bedside Glucose 331 mg/dL (74-106)
[2024-02-27] MEDS: Menthol/Lanolin/Calamine/Znox 113 GM Tube 1 APPLIC TOPICAL (21:40)
[2024-02-27] MEDS: Nystatin Powder 15gm Bottle 1 APPLIC TOPICAL (21:40)
[2024-02-27 21:43] VITALS: BP 133/52; PULSE 73
[2024-02-27] MEDS: Insulin NPH Human 100 UNITS/ML PEN 10 UNITS SC (21:43)
[2024-02-27 21:48] VITALS: BP 133/52; PULSE 73; O2SAT 97
[2024-02-28 00:28] VITALS: PULSE 84; O2SAT 97
[2024-02-28] MEDS: Furosemide 40 MG Tablet PO ×2 (05:40→15:22)
[2024-02-28 05:58] LABS: Absolute Lymphocyte Count 1.66 X10^3/uL (0.83-4.51); Absolute Neutrophil Count 5.3 X10^3/uL (2.0-7.7); Basophil# 0.03 X10^3/uL; Basophil% 0.4 % (0-1); Eosinophil# 0.29 X10^3/uL; Eosinophils% 3.5 % (0-5); Hematocrit 39.5 % (40-54); Hemoglobin 12.4 g/dL (13.0-16.5); Lymphocyte # 1.66 X10^3/ul (0.83-4.51); Mean Corp Hgb Conc 31.4 g/dL (32-36); Mean Corpuscular Volume 92.3 fL (80-94); Mean Platelet Vol. 10.7 fl (6.2-12.0); Monocyte# 1.04 X10^3/uL; Monocyte% 12.5 % (0-10); NRBC Flagged by Analyzer 0 % (0-5); Neutrophil # 5.26 X10^3/uL (2.7-7.7); Neutrophil % 63.1 % (47-70); Platelet Count 254 K/mm3 (150-450); RBC Distribution Width CV 14.5 % (11.6-14.6); RBC Distribution Width SD 49.1 fl (35.1-43.9); Red Blood Count 4.28 M/mm3 (4.6-6.2); White Blood Count 8.3 K/mm3 (4.4-11.0)
[2024-02-28 06:00] VITALS: BMI 35.9
[2024-02-28 06:28] LABS: Anion Gap 2 (5-15); BUN 51 mg/dL (7-18); BUN/Creat Ratio 32.1 RATIO (10-20); Calcium,Total 8.8 mg/dL (8.5-10.1); Chloride 94 mmol/L (98-107); Creatinine, Serum 1.59 mg/dL (0.70-1.30); EST Glomerular Filtration Rate 44 mL/min (>60); Est Glom Filt Rate - Afr Amer 53 mL/min (>60); Estimated Creatinine Clearance 35.17 ml/min; Glucose 207 mg/dL (74-106); Potassium 4.1 mmol/L (3.5-5.1); Sodium Level 134 mmol/L (136-145)
[2024-02-28 06:56] LABS: Bedside Glucose 171 mg/dL (74-106)
[2024-02-28 07:01] VITALS: O2SAT 93
--- NOTE | 2024-02-28 08:36 | NURSING ---
Senior It [employer] Note; MDS for 02/27/2024 Complete
[2024-02-28 09:31] VITALS: BP 104/60; PULSE 79
[2024-02-28] MEDS: Metoprolol Tartrate 25 MG Tablet PO (09:31)
[2024-02-28] MEDS: Nystatin Powder 15gm Bottle 1 APPLIC TOPICAL (09:32)
[2024-02-28] MEDS: Menthol/Lanolin/Calamine/Znox 113 GM Tube 1 APPLIC TOPICAL (09:32)
[2024-02-28] MEDS: Ammonium Lactate 225 gm Bottle 1 APPLIC TOPICAL (09:33)
[2024-02-28] MEDS: APIXABAN 2.5 MG TABLET (WCH) PO (09:39)
[2024-02-28] MEDS: Glimepiride 4 MG Tablet PO ×2 (09:39→17:11)
[2024-02-28] MEDS: Multivitamins,Ther W-Minerals Tablet 1 TABLET PO (09:39)
[2024-02-28] MEDS: amLODIPine 2.5 MG Tablet PO (09:39)
[2024-02-28] MEDS: Spironolactone 25 MG Tablet PO (09:40)
[2024-02-28] MEDS: Insulin NPH Human 100 UNITS/ML PEN 10 UNITS SC (09:40)
[2024-02-28 09:55] VITALS: BP 104/60; PULSE 79
[2024-02-28 11:21] LABS: Bedside Glucose 266 mg/dL (74-106)
[2024-02-28] MEDS: Tuberculin,Purif.prot.deriv. 50 TU/ML Vial 0.1 ML ID (12:12)
[2024-02-28 12:55] LABS: HIV - WCH Non-Reactive (Nonreactive); Hepatitis B Surface Antibody Non-Reactive; Hepatitis B Surface Antigen Non-Reactive (Nonreactive); Hepatitis C Antibody Non-Reactive (Nonreactive)
[2024-02-28 15:28] VITALS: BP 100/64
[2024-02-28 16:48] LABS: Bedside Glucose 263 mg/dL (74-106)
[2024-02-28 18:12] VITALS: BP 100/66; PULSE 61; RESP 18; TEMP 36.2; O2SAT 97
[2024-02-29 05:07] LABS: Hepatitis B Core Ab Total Negative (Negative)
--- NOTE | 2024-03-04 08:41 | MDS.RN ---
Information for the MDS was obtained from review of the clinical record, interview of resident, staff, and direct observation of resident?s care.
== END 2024-02-28 17:30 | disposition hospice, home (50) | DRG 291 ==
PROVIDERS: Emergency Medicine; Admitting Provider Family Medicine Geriatric Medicine; PCP Internal Medicine; Referring Provider Family Medicine Geriatric Medicine; Visit Provider Family Medicine Geriatric Medicine
DX: I11.0 Hypertensive heart disease with heart failure (principal); I50.33 Acute on chronic diastolic (congestive) heart failure; J96.01 Acute respiratory failure with hypoxia; J91.8 Pleural effusion in other conditions classified elsewhere; I48.11 Longstanding persistent atrial fibrillation; J93.9 Pneumothorax, unspecified; I27.21 Secondary pulmonary arterial hypertension; B35.4 Tinea corporis; E11.9 Type 2 diabetes mellitus without complications; Z79.4 Long term (current) use of insulin; I25.10 Atherosclerotic heart disease of native coronary artery without angina pectoris; Z87.891 Personal history of nicotine dependence; Z79.899 Other long term (current) drug therapy; Z79.01 Long term (current) use of anticoagulants; Z79.84 Long term (current) use of oral hypoglycemic drugs
CPT/HCPCS: 36415; 80048; 82705; 82947; 82962; 85025; 86703; 86704; 86706; 86803; 87340; 87811; 92523; 92610; 97110; 97162; 97166; 97530; 97535; 97802